=== PATIENT | female | born 1970 | race Caucasian/White ===

== ENCOUNTER → 2020-11-14 | Outpatient (CLI) | payer OTHER, BC, SELFPAY ==
[2020-11-14 10:18] VITALS: BMI 44.3
[2020-11-18 20:49] LABS: HPV APTIMA, High Risk Negative (Negative)
== END | disposition home or self-care (01) ==
LOC: LABSPEC 14:35
PROVIDERS: PCP Family Medicine; Referring Provider Nurse Practitioner Women's Health; Visit Provider Nurse Practitioner Women's Health
DX: Z12.4 Encounter for screening for malignant neoplasm of cervix (principal)
CPT/HCPCS: 87624; 88175; G0145

== ENCOUNTER → 2020-12-06 13:12 | Outpatient (CLI) | payer OTHER, BC, SELFPAY ==
[2020-11-14 10:18] VITALS: BMI 44.3
--- NOTE | 2020-12-06 13:15 | US_ITS ---
STUDY: ULTRASOUND OF THE FEMALE PELVIS - COMPLETE REASON FOR EXAM: Female, 50 years old. MENORRHAGIA LMP: 12/03/2020. TECHNIQUE: Transabdominal and Transvaginal TECHNICAL QUALITY: Adequate. COMPARISON: None. FINDINGS: The uterus is anteflexed and is in a midline position. The uterus is enlarged and measures 13.6 cm x 6.3 cm x 4.8 cm. There is a Nabothian cyst of the cervix. The endometrium measures 11 mm in thickness, and is hyperechoic. There is no demonstrated endometrial mass. Heterogeneous appearance of the myometrium although no distinct uterine fibroid is seen. I.U.D. - The patient does not have an I.U.D. The right ovary is visualized. The right ovary measures 3.1 cm x 2.9 cm x 2.0 cm. There is no right ovarian cyst or ovarian mass. There is no visualized right adnexal mass or complex lesion. There is normal arterial and normal venous vascularity. The left ovary is visualized. The left ovary measures 3.3 cm x 3 cm x 1.9 cm. A dominant follicle is seen within the left ovary measuring 1.1 cm x 1.5 cm x 0.8 cm. There is no visualized left adnexal mass or complex lesion. There is normal arterial and normal venous vascularity. There is no fluid in the cul-de-sac. The pre void volume of the bladder was 674 ml. US/Pelvic (Non ) IMPRESSION: Enlarged heterogeneous uterus. No focal fibroid is seen. Dominant follicle is seen in the left ovary. Electronically Signed: Mark Malcolm MD at 15:02 EST , Service support ,
--- NOTE | 2020-12-06 13:15 | BI_ITS ---
MAMMOGRAPHY - BILATERAL SCREENING REASON FOR EXAM: Female, 50 years old. Routine annual screening examination. PERTINENT HISTORY: Aunts with breast cancer. TECHNIQUE: Digital bilateral breast kirstin (3D mammographic acquisition) in the CC and MLO projections. 2-D mediolateral oblique (MLO) and craniocaudad (CC) views of both breasts were obtained. CAD: Full Field Digital Mammography with Computer Added Detection was performed. COMPARISON: Comparison is made with prior study dated 03/30/2017. FINDINGS: Breast Composition: There are scattered areas of fibroglandular density. There are no dominant masses or suspicious calcifications. Stable small benign appearing bilateral axillary lymph nodes. No other significant abnormalities are identified. There has been no significant change since the prior study. BI/SCRN MAMM (CAD)W/KIRSTIN BILAT IMPRESSION: Stable bilateral screening mammogram. Yearly follow-up mammogram recommended. (A) ASSESSMENT CATEGORY: BIRADS Category 2: Benign. A letter regarding these results will be sent to the patient by the facility within 30 days. Approximately 10% of breast cancers are not detected by mammography. A normal mammogram should not delay biopsy of a clinically suspicious abnormality. [id number] Electronically Signed: Mark Malcolm MD at 15:14 EST , Service support ,
--- NOTE | 2020-12-06 13:15 | US_ITS ---
STUDY: ULTRASOUND OF THE FEMALE PELVIS - COMPLETE REASON FOR EXAM: Female, 50 years old. MENORRHAGIA LMP: 12/03/2020. TECHNIQUE: Transabdominal and Transvaginal TECHNICAL QUALITY: Adequate. COMPARISON: None. FINDINGS: The uterus is anteflexed and is in a midline position. The uterus is enlarged and measures 13.6 cm x 6.3 cm x 4.8 cm. There is a Nabothian cyst of the cervix. The endometrium measures 11 mm in thickness, and is hyperechoic. There is no demonstrated endometrial mass. Heterogeneous appearance of the myometrium although no distinct uterine fibroid is seen. I.U.D. - The patient does not have an I.U.D. The right ovary is visualized. The right ovary measures 3.1 cm x 2.9 cm x 2.0 cm. There is no right ovarian cyst or ovarian mass. There is no visualized right adnexal mass or complex lesion. There is normal arterial and normal venous vascularity. The left ovary is visualized. The left ovary measures 3.3 cm x 3 cm x 1.9 cm. A dominant follicle is seen within the left ovary measuring 1.1 cm x 1.5 cm x 0.8 cm. There is no visualized left adnexal mass or complex lesion. There is normal arterial and normal venous vascularity. There is no fluid in the cul-de-sac. The pre void volume of the bladder was 674 ml. US/Transvaginal Non- IMPRESSION: Enlarged heterogeneous uterus. No focal fibroid is seen. Dominant follicle is seen in the left ovary. Electronically Signed: Mark Malcolm MD at 15:02 EST , Service support ,
== END ==
PROVIDERS: PCP Family Medicine; Referring Provider Nurse Practitioner Women's Health; Visit Provider Nurse Practitioner Women's Health
DX: Z12.31 Encounter for screening mammogram for malignant neoplasm of breast (principal); N92.0 Excessive and frequent menstruation with regular cycle
CPT/HCPCS: 76830; 76856; 77063; 77067

== ENCOUNTER → 2020-12-22 | Outpatient (CLI) | payer OTHER, BC, SELFPAY ==
--- NOTE | 2020-12-22 | EMB_PTH ---
PATIENT: [facility]ENET[facility]ANG [id number] AGE/SX: 50/F ROOM: RE12/22/[address]: SONAM Gold : 1970 BED: DIS: 12/22/2020 SPEC #: [id number] RECD: 12/22/20 13:54 STATUS: JESÚS AMBER #: [id number] LULU: 12/22/20 00:[address]: Shakila Peguero NP DEPT: SURGICAL PATHOLOGY RECD BY: Neil Carrion ENTERED: 12/22/20 13:54 SP TYPE: ENDOM BX/C HENRY DR: Dr. Wong Padilla MD Tissues: Endometrium, NOS Procedures: Surgery Specimen Level IV HEADER OPERATION: Endometrial biopsy PRE-OP DIAGNOSIS: Abnormal uterine bleeding TISSUE SUBMITTED: Endometrial biopsy MICROSCOPIC DIAGNOSIS Endometrial biopsy: Scant strips of benign endometrial epithelium. Fragments of benign ecto- and endocervical epithelium, blood and mucous. See comment. SJ:barbara 12/23/2020 COMMENT The specimen predominantly consists of blood and mucous and strips of benign ecto- and endocervical epithelium. Clinical correlation and appropriate follow up are necessary. MICROSCOPIC DESCRIPTION Slides are reviewed. GROSS DESCRIPTION Received is one container labeled with the patient's name and not further designated. The specimen consists of multiple fragments of lara hemorrhagic soft tissue that in aggregate measure 2 x 1.5 x 0.2 cm. The specimen is totally submitted in one cassette. / KACI:barbara 12/22/20 TC:4 CPT: 53154
[2020-12-22 11:18] VITALS: BMI 43.7
== END | disposition home or self-care (01) ==
LOC: LABSPEC 12:58
PROVIDERS: PCP Family Medicine; Visit Provider Nurse Practitioner Women's Health
DX: N93.9 Abnormal uterine and vaginal bleeding, unspecified (principal)
CPT/HCPCS: 88305

== ENCOUNTER → 2023-04-08 | Outpatient (CLI) | payer BC, SELFPAY ==
--- NOTE | 2023-04-08 09:42 | BI_ITS ---
MAMMOGRAPHY - BILATERAL SCREENING REASON FOR EXAM: Female, 52 years old. Routine annual screening examination. PERTINENT HISTORY: Aunt with breast cancer. Daughter with breast cancer. History of bilateral breast lifts in 2007. TECHNIQUE: Digital bilateral breast kirstin (3D mammographic acquisition) in the CC and MLO projections. 2-D mediolateral oblique (MLO) and craniocaudad (CC) views of both breasts were obtained. CAD: Full Field Digital Mammography with Computer Added Detection was performed. COMPARISON: Mammogram from 12/06/2020, 04/29/2017 FINDINGS: Breast Composition: There are scattered areas of fibroglandular density. There are no dominant masses or suspicious calcifications. No other significant abnormalities are identified. There has been no significant change since the prior study. BI/SCRN MAMM (CAD)W/KIRSTIN BILAT IMPRESSION: Stable bilateral screening mammogram. Yearly follow-up mammogram recommended. (A) ASSESSMENT CATEGORY: BIRADS Category 1: Negative. A letter regarding these results will be sent to the patient by the facility within 30 days. Approximately 10% of breast cancers are not detected by mammography. A normal mammogram should not delay biopsy of a clinically suspicious abnormality. Electronically Signed: Kody Nieto DO at 15:39 EDT ,
== END | disposition home or self-care (01) ==
LOC: OPBI 09:41
PROVIDERS: PCP Family Medicine; Referring Provider Family Medicine; Visit Provider Family Medicine
DX: Z12.31 Encounter for screening mammogram for malignant neoplasm of breast (principal); Z80.3 Family history of malignant neoplasm of breast
CPT/HCPCS: 77063; 77067

== ENCOUNTER → 2025-04-02 | Outpatient (CLI) | payer BC, SELFPAY ==
--- NOTE | 2025-04-02 13:04 | BI_ITS ---
EXAM: SCRN MAMM (CAD)W/KIRSTIN BILAT 04/02/2025 CLINICAL HISTORY: F, Age 54 y/o , SCREENING TECHNIQUE: Bilateral screening digital breast tomosynthesis with 2D and 3D images. Computer aided detection. COMPARISON: Prior exam(s) dated 04/08/2023, 12/06/2020. FINDINGS: TISSUE DENSITY: The breast tissue is composed of scattered area of fibroglandular density. Bilateral Breast Mammographic Findings: No significant masses, calcifications or other abnormalities are identified. BI/SCRN MAMM (CAD)W/KIRSTIN BILAT IMPRESSION: Right Breast: BIRADS 1 NEGATIVE. Left Breast: BIRADS 1 NEGATIVE. OVERALL FINAL ASSESSMENT: BIRADS 1 NEGATIVE. RECOMMENDATION: Routine annual follow-up in 1 Year A letter with findings and recommendations will be mailed to the patient. Reading Location: [id number]
--- OUTSIDE RECORDS SUMMARY | 2025-04-02 19:23 | XMS RPT_ITS | CCD ---
Author Organization [facility] Care Team Providers Care Planner Scheduler Name Role Phone KRISSY GARRETT Unavailable Unavailabl e SHEWBRIDGE, KRISSY K Unavailable Unavailabl e SHEWBRIDGE, KRISSY K Unavailable Unavailabl e SHEWBRIDGE, RKISSY K Unavailable Unavailabl e SHEWISIS, KRISSY K Unavailable Unavailabl e Wong Carpenter MD Primary Care Provider Wong Carpenter MD Primary Care Provider Dr. Wong Carepnter Primary Care Provider Dr. Wong Carpenter Referring Provider [phone] SONAM Tuttle Attending Provider CHRISTIANO DUENAS Attending Unavailable WONG CARPENTER Primary Care Unavailable WONG CARPENTER Primary Care Unavailable WONG CARPENTER Primary Care Unavailable WONG CARPENTER Attending Unavailable WONG CARPENTER Primary Care Unavailable JETT TUTTLE Attending Unavailable JETT TUTTLE Referring Unavailable WONG CARPENTER Primary Care Unavailable Jett Tuttle Attending Unavailable Wong Carpenter Referring Unavailable Wong Carpenter Primary Care Unavailable Jett Tuttle Attending Unavailable Wong Carpenter Referring Unavailable Wong Carpenter Primary Care Unavailable Kira Calvin NP Referring Unavailable Kira Calvin NP Attending Unavailable Wong Carpenter Primary Care Unavailable Allergies Allergy Classification Reported Allergen(s) Allergy Type Date of Onset Reaction(s) Facility (20 sources) metFORMIN; Translations: [METFORMIN] Drug Allergy 6 Nausea And Vomiting [facility] Repository Medications Current Medications Medication Drug Class(es) Dates Sig (Normalized) Sig (Original) atorvastatin 20 mg oral tablet (20 sources) HMG-CoA Reductase Inhibitor Start: 05-30-2023 End: 11-12-2024 take 1 tablet by mouth once daily in the morning atorvastatin (Lipitor) 20 MG tablet TAKE 1 TABLET BY MOUTH EVERY DAY IN THE MORNING 90 tablet 1 11/12/2024 Active Start: 11-14-2020 take 1 tablet by daquan th in the morning atorvastatin (Lipitor) 20 MG tablet Take 1 tablet (20 mg) by mouth in the morning. 90 tablet 1 09/10/2022 Active Dulaglutide (17 sources) GLP-1 Receptor Agonist Start: 03-20-2023 Dulaglu tide (Trulicity) 3 mg/0.5 mL pen injector Active 3 MG SC EVERY WEEK March 20, 2023 12:00am Start: 11-20-2022 End: 03-20-2023 Dulaglutide (Trulicity) 1.5 mg/0.5 mL pen injector Discontinued 1.5 MG SC EVERY WEEK January 15, 2023 1:53pm March 20, 2023 1:36pm Start: 09-06-2022 Trulicity 0.75 MG/0.5ML solution pen-injector Start: 01-26-2022 End: 12-17-2023 Trulicity 0.75 MG/0.5ML solu tion pen-injector 0.75 mg 1 (one) time per week. 0 09/06/2022 12/17/2023 Discontinued empagliflozin 25 mg oral tablet (20 sources) Sodium-Glucose Cotransporter 2 Inhibitor Start: 02-03-2024 End: 12-28-2024 take 1 tablet by mouth once daily Jardiance 25 MG Indications: Type 2 diabetes mellitus without complication, with long-term current use of insulin (CMS/HCC) ([facility]) Take 1 tablet (25 mg) by mouth daily. 90 tablet 1 12/28/2024 Active Start: 11-14-2020 End: 12-14-2022 take 25 mg by mouth in the morning Jardiance 25 MG Take 25 mg by mouth in the morning. 0 07/22/2022 Active glimepiride 4 mg oral tablet (20 sources) Sulfonylurea Start: 12-28-2024 take 1 tablet by mouth once daily at breakfast glimepiride (Amaryl) 4 MG tablet Indications: Type 2 diabetes mellitus without complication, with long-term current use of insulin (CMS/HCC) ([facility]) Take 1 tablet (4 mg) by mouth daily (with breakfast). 90 tablet 1 12/28/2024 Active Start: 09-20-2022 take 4 mg by mouth twice daily Glimepiride Active 4 MG PO TWICE A DAY 180 September 20, 2022 3:12pm Start: 09-05-2022 End: 12-28-2024 take 2 tablets by mouth once daily at breakfast glimepiride (Amaryl) 4 MG tablet Take 2 tablets (8 mg) by mouth daily (with breakfast). 180 tablet 1 07/13/2024 12/28/2024 Discontinued Start: 05-14-2016 End: 09-20-2022 take 4 mg by mouth once daily Glimepiride Discontinued 4 MG PO DAILY November 14, 2020 1:00am September 20, 2022 3:13pm 3 ml insulin degludec 100 unt/ml pen injector (20 sources) Insulin Analog Start: 05-06-2022 Tresiba FlexTo uch 100 UNIT/ML injection 16 Units Nightly. 05/06/2022 Active Start: 05-06-2022 inject 20 [IU] by glover bcutaneous injection once daily at bedtime Tresiba FlexTouch 100 UNIT/ML injection INJECT 20 UNITS SUBCUTANEOUSLY EVERY NIGHT AT BEDTIME 05/06/2022 Active Start: 01-26-2022 End: 03-20-2023 Insulin Degludec (Tresiba Flextouch U-100) 100 unit/mL (3 mL) insulin pen Active 20 UNIT SC AT BEDTIME March 20, 2023 1:37pm levothyroxine sodium 0.15 mg oral tablet (20 sources) l-Thyroxine Start: 02-19-2024 End: 11-25-2024 take 1 tablet by mouth once daily levothyroxine (Synthroid, Levoxyl) 150 MCG tablet TAKE 1 TABLET BY MOUTH EVERY DAY 90 tablet 1 11/25/2024 Active Start: 01-21-2024 take 1 tablet by daquan once daily levothyroxine (Synthroid, Levoxyl) 150 MCG tablet Take 1 tablet (150 mcg) by mouth daily. 0 01/21/2024 Active Start: 12-19-2023 End: 01-21-2024 take 1 tablet by mouth once daily levothyroxine (Synthroid, Levoxyl) 125 MCG tablet Take 1 tablet (125 mcg) by mouth daily. 30 tablet 0 12/19/2023 01/21/2024 Discontinued (Dose adjustment) Start: 07-10-2023 End: 09-16-2024 take 1 tablet by mouth once daily levothyroxine (Synthroid, Levoxyl) 112 MCG tablet Take 1 tablet (112 mcg) by mouth daily. 90 tablet 1 09/17/2023 09/16/2024 Active Start: 01-15-2023 End: 04-04-2023 take 1 tablet by mouth once daily before breakfast levothyroxine (Synthroid, Levoxyl) 150 MCG tablet Take 1 tablet (150 mcg) by mouth every morning (before breakfast). 90 tablet 1 04/05/2023 Active Start: 12-03-2022 take 1 tablet by daquan th once daily before breakfast levothyroxine (Synthroid, Levoxyl) 150 MCG tablet Take 1 tablet (150 mcg) by mouth every morning (before breakfast). 30 tablet 0 12/03/2022 Active Start: 11-14-2020 End: 09-20-2022 take 175 ug by mouth once daily Levothyroxine Disconti nued 175 MCG PO DAILY November 14, 2020 1:00am September 20, 2022 2:58pm Start: 09-17-2017 End: 12-03-2022 Levothyroxine Active 175 MCG PO September 20, 2022 1:00am Start: 05-14-2016 End: 11-14-2020 take 100 ug by mouth once daily Levothyroxine Disconti nued 100 MCG PO DAILY 90 May 21, 2016 12:00am November 14, 2020 11:21am Mounjaro 5 MG/0.5ML solution pen-injector (1 source) Start: 06-10-2024 inject 0.5 mL by subcutaneous injection every week Mounjaro 5 MG/0.5ML solution pen-injector INJECT 0.5 ML (5 MG) SUBCUTANEOUSLY WEEKLY 06/10/2024 Active Mounjaro 5 MG/0.5ML solution pen-injector (4 sources) Start: 06-10-2024 inject 0.5 mL by subcutaneous injection every week Mounjaro 5 MG/0.5ML solution pen-injector INJECT 0.5 ML (5 MG) SUBCUTANEOUSLY WEEKLY 06/10/2024 Active spironolactone 100 mg oral tablet (20 sources) Aldosterone Antagonist Start: 09-10-2022 End: 04-18-2023 take 1 tablet by mouth twice daily spironolactone (Aldactone) 100 MG tablet TAKE 1 TABLET BY MOUTH TWICE A DAY 180 tablet 04/18/2023 Active Start: 05-14-2016 End: 11-14-2020 take 100 mg by mouth twice daily Spironolactone Discontinued 100 MG PO TWICE A DAY May 14, 2016 12:00am November 14, 2020 11:21am valACYclovir 1000 mg oral tablet (20 sources) Herpesvirus Nucleoside Analog DNA Polymerase Inhibitor, Herpes Simplex Virus Nucleoside Analog DNA Polymerase Inhibitor, Herpes Zoster Virus Nucleoside Analog DNA Polymerase Inhibitor Start: 09-20-2022 Valacyclovir (Valtr ex) 1 gram tablet Active 1000 MG PO TWICE A DAY September 20, 2022 1:00am Start: 03-02-2020 take 2 tablets by mo ut in the morning valACYclovir (Valtrex) 1 g tablet Take 2 tablets by mouth in the morning and 2 tablets before bedtime. 03/02/2020 Active Completed/Discontinued Medications Medication Drug Class(es) Dates Sig (Normalized) Sig (Original) acetaminophen 325 mg / HYDROcodone bitartrate 5 mg oral tablet (1 source) Opioid Agonist Start: 05-21-2016 End: 11-14-2020 take 1 tablet by mouth every six hours as needed Hydrocodone-Acetam inophen Discontinued 1 TABLET PO EVERY 6 HOURS NEEDED May 21, 2016 12:00am November 14, 2020 11:21am acetaminophen 325 mg / oxyCODONE hydrochloride 5 mg oral tablet (1 source) Opioid Agonist Start: 01-06-2013 End: 11-30-2022 take 1 tablet by mouth every four hours as needed oxyCODONE-acetamin ophen (Percocet) 5-325 MG tablet Take 1 tablet by mouth every 4 hours as needed. 0 01/06/2013 11/30/2022 Discontinued (Med list cleanup) citalopram 20 mg oral tablet (2 sources) Serotonin Reuptake Inhibitor Start: 11-14-2020 End: 09-20-2022 take 1 tablet by mouth once daily Citalopram (Celexa) 20 mg tablet Discontinued 20 MG PO DAILY December 15, 2020 9:43am September 20, 2022 2:56pm metFORMIN hydrochloride 500 mg oral tablet (1 source) Biguanide End: 11-30-2022 take 1 tablet by mouth in the morning metFORMIN (Glucophage) 500 MG tablet Take 500 mg by mouth in the morning and 500 mg in the evening. 0 11/30/2022 Discontinued (Med list cleanup) SITagliptin 100 mg oral tablet (3 sources) Dipeptidyl Peptidase 4 Inhibitor Start: 05-14-2016 End: 11-30-2022 take 1 tablet by mouth in the morning SITagliptin (Januvia) 100 MG tablet Take 1 tablet by mouth in the morning. 0 04/11/2018 11/30/2022 Discontinued (Med list cleanup) 5 ml sodium chloride 9 mg/ml injection (6 sources) Start: 05-16-2023 End: 05-16-2023 sodium chloride 0.9 % infusion Start: 05-16-2023 End: 05-16-2023 sodium chloride 0.9% (NS) fl ush 10 mL terbinafine 250 mg oral tablet (1 source) Allylamine Antifungal Start: 05-28-2022 End: 11-30-2022 take 1 tablet by mouth once daily in the morning terbinafine (LamISIL) 250 MG tablet Take 250 mg by mouth every morning. 0 05/28/2022 11/30/2022 Discontinued (Med list cleanup) Trulicity 4.5 MG/0.5ML solution pen-injector (6 sources) Start: 09-17-2023 End: 07-13-2024 inject 4.5 mg by subcutaneous injection every week Trulicity 4.5 MG/0.5ML solution pen-injector 4.5 MG (0.5 ML) SUBCUTANEOUSLY EVERY WEEK 09/17/2023 07/13/2024 Discontinued (Alternate therapy) Start: 09-17-2023 inject 4.5 mg by sub cutaneous injection every week Trulicity 4.5 MG/0.5ML solution pen-injector 4.5 MG (0.5 ML) SUBCUTANEOUSLY EVERY WEEK 09/17/2023 Active Start: 09-17-2023 inject 4.5 mg by sub cutaneous injection every week Trulicity 4.5 MG/0.5ML solution pen-injector 4.5 MG (0.5 ML) SUBCUTANEOUSLY EVERY WEEK 0 09/17/2023 Active Problems Active Problems Problem Classification Problem Date Documented Date Episodic/Chronic Cancer of cervix (1 source) Atypical squamous cells of undetermined significance on cervical Papanicolaou smear; Translations: [Atypical squamous cells of undetermined significance on cytologic smear of cervix (ASC-US)] 11-21-2020 Episodic Complications of surgical procedures or medical care (20 sources) Postprocedural hypothyroidism; Translations: [Postoperative hypothyroidism] Onset: 06-03-2017 Resolved: 12-28-2024 08-06-2022 Chronic Diabetes mellitus with complications (20 sources) Type 2 diabetes mellitus with hyperglycemia; Translations: [Type II diabetes mellitus uncontrolled] Onset: 09-11-2017 Resolved: 12-17-2023 08-06-2022 Chronic Diabetes mellitus without complication (20 sources) Diabetes mellitus; Translations: [Type 2 diabetes mellitus without complications] Onset: 12-17-2023 06-14-2022 Chronic Disorders of lipid metabolism (20 sources) Hyperlipidemia; Translations: [Hyperlipidemia, unspecified] Onset: 06-16-2018 08-06-2022 Chronic Menstrual disorders (1 source) Menorrhagia; Translations: [Excessive and frequent menstruation with regular cycle] 11-14-2020 Chronic Other aftercare (2 sources) jail (current) use of insulin; Translations: [jail (current) use of insulin (HCC)] Onset: 12-17-2023 Episodic Other female genital disorders (1 source) Premenstrual tension syndrome; Translations: [Premenstrual tension syndrome] 11-14-2020 Chronic Other nutritional; endocrine; and metabolic disorders (20 sources) Morbid obesity; Translations: [Morbid (severe) obesity due to excess calories] Onset: 06-03-2017 08-06-2022 Chronic Other nutritional; endocrine; and metabolic disorders (1 source) Obesity; Translations: [Obesity, unspecified] 06-14-2022 Chronic Other nutritional; endocrine; and metabolic disorders (2 sources) Obesity, unspecified; Translations: [Obesity, unspecified] Onset: 12-17-2024 03-20-2023 Chronic Other screening for suspected conditions (not mental disorders or infectious disease) (10 sources) At risk of breast cancer; Translations: [Encounter for other screening for malignant neoplasm of breast] Onset: 12-28-2024 05-16-2023 Episodic Thyroid disorders (11 sources) 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; Translations: [Other specified hypothyroidism] Onset: 06-26-2024 01-30-2022 Chronic Unclassified (2 sources) Blood Work; Translations: [Blood Work] Onset: 01-16-2024 Past or Other Problems Problem Classification Problem Date Documented Da te Episodic/Chronic Mycoses (20 sources) Onychomycosis; Translations: [Tinea unguium] Onset: 05-28-2022 08-06-2022 Episodic Other female genital disorders (20 sources) Cervical atypism; Translations: [Dysplasia of cervix uteri, unspecified] Onset: 03-30-2021 Resolved: 11-30-2022 11-30-2022 Episodic Other skin disorders (20 sources) Acne vulgaris; Translations: [Acne vulgaris] Onset: 06-03-2017 08-06-2022 Episodic Residual codes; unclassified (20 sources) Family history of malignant neoplasm of uterus; Translations: [Family history of malignant neoplasm of other genital organs] Onset: 03-30-2021 08-06-2022 Episodic Residual codes; unclassified (20 sources) Tobacco use and exposure - finding; Translations: [Tobacco use] Onset: 06-03-2017 08-06-2022 Episodic Results Test Name Value Interpretation Reference Range Facility Office Visiton 12-28-2024 Follow-up visit [id number] Renetta Herrera 1970 F Date Provider Department Center 12/28/2024 [id number] ARMANDO [facility] Family History Problem Relation Age of Onset No Known Problems Father Cancer Maternal Grandfather Comments: lung No Known Problems Paternal Grandmother Heart disease Maternal Grandmother No Known Problems Sister Cancer Mother Comments: uterine No Known Problems Paternal Grandfather Family Status - Relation Status Age at Father Alive Maternal Grandfather Paternal Grandmother Maternal Grandmother Sister Alive Mother Paternal Grandfather Level of Service:58940 CO PERIODIC PREVENTIVE MED EST PATIENT 40-64YRS Reason for Visit and Comments: Annual Exam [83] Health Maintenance [872] - Hepatitis B Vaccines-declined Zoster Vaccines-declined Diabetes: Retinopathy Screening-DUE been over a year Pneumococcal Vaccine-declined Cervical Cancer Screening-DUE w/ sanam Mammogram-sanam orders Diabetes: Dental Exam-6 months ago Influenza Vaccine-declined COVID-19 Vaccine-declined Depression Screening-NEEDS COMPLETED Diabetes: Foot Exam-PENDED Normal [facility] Progress Noteon 12-28-2024 Progress Note Controlled, continue atorvastatin 20 mg daily Normal [facility] Progress Note Controlled. Last hemoglobin A1c was 6.9 at endocrinology, continue Mounjaro 5 mg weekly, glimepiride 4 mg daily, Jardiance 25 mg daily, Tresiba 16 units nightly Normal [facility] Progress Note Check TSH, continue levothyroxine 150 mcg daily. Normal [facility] Progress Note Health Maintenance D ue Topic Hepatitis B Vaccines-declined Zoster Vaccines-declined Diabetes: Retinopathy Screening-DUE been over a year Pneumococcal Vaccine-declined Cervical Cancer Screening-DUE w/ marcanthony Mammogram-sanam orders Diabetes: Dental Exam-6 months ago Influenza Vaccine-declined COVID-19 Vaccine-declined Depression Screening-NEEDS COMPLETED Diabetes: Foot Exam-PENDED Normal [facility] Progress Note 12/28/2024 Renetta Herrera (: 1970) is a 54 y.o. female , Established patient, here for evaluation of the following chief complaint(s): Annual Exam and Health Maintenance (Hepatitis B Vaccines-declined/Zoster Vaccines-declined/Diabet es: Retinopathy Screening-DUE been over a year/Pneumococcal Vaccine-declined/Cervica l Cancer Screening-DUE w/ marcanthony/Mammogram-ma mary jo orders/Diabetes: Dental Exam-6 months ago /Influenza Vaccine-declined/COVID-1 9 Vaccine-declined/Depress ion Screening-NEEDS COMPLETED/Diabetes: Foot Exam-PENDED/) ASSESSMENT/PLAN: 1. Type 2 diabetes mellitus without complication, with long-term current use of insulin ([facility]) ([facility]) Assessment & Plan: Controlled. Last hemoglobin A1c was 6.9 at endocrinology, continue Mounjaro 5 mg weekly, glimepiride 4 mg daily, Jardiance 25 mg daily, Tresiba 16 units nightly Orders: - Jardiance 25 MG; Take 1 tablet (25 mg) by mouth daily., Starting Sat12/28/2024, Normal - glimepiride (Amaryl) 4 MG tablet; Take 1 tablet (4 mg) by mouth daily (with breakfast)., Starting Sat12/28/2024, Normal 2. 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 Orders: - TSH 3. Pure hypercholesterolemia Assessment & Plan: Controlled, continue atorvastatin 20 mg daily 4. Screening for deficiency anemia 5. Encounter for screening mammogram for malignant neoplasm of breast Follow up in about 6 months (around 06/30/2025). SUBJECTIVE/OBJECTIVE: REGINALD - Renetta Herrera (: 1970) is a 54 y.o. female , Established patient, here for the evaluation of the following chief complaint(s): Annual Exam and Health Maintenance (Hepatitis B Vaccines-declined/Zoster Vaccines-declined/Diabet es: Retinopathy Screening-DUE been over a year/Pneumococcal Vaccine-declined/Cervica l Cancer Screening-DUE w/ marcanthony/Mammogram-ma rcanthony orders/Diabetes: Dental Exam-6 months ago /Influenza Vaccine-declined/COVID-1 9 Vaccine-declined/Depress ion Screening-NEEDS COMPLETED/Diabetes: Foot Exam-PENDED/) Patient presents for her annual exam. She sees endocrinology for her diabetes and for hypothyroidism. We do prescribe many of her diabetic medications and the levothyroxine. She last had her blood work checked in June 2024 and will have it checked again in May 2025. Her labs are checked by the manpower development specialist manager. We will check her TSH today as it was slightly low when endocrine checked it in June 2024. Patient states that she would prefer to have it on the lower end of normal. Checks her sugars twice daily and the manpower development specialist manager checked [id number]-[id number] hemoglobin A1c last month and it was 6.9. She is due for her mammogram and her Pap smear-she sees IMPORT EXPORT COORDINATOR that. Denies any acute concerns or complaints today. Prior to Admission medications Medication Sig Start Date End Date Taking? Authorizing Provider atorvastatin (Lipitor) 20 MG tablet TAKE 1 TABLET BY MOUTH EVERY DAY IN THE MORNING 11/12/24 Yes Christiano Duenas, AUTOPSY PATHOLOGIST - ENGRAVER MACHINE B-D UF III MINI PEN NEEDLES 31G X 5 MM misc USE DIRECTED EVERY DAY 12/17/24 Yes Historical Provider, BD Pen Needle Gloria 2nd Gen 32G X 4 MM misc USE DIRECTED ONCE DAILY 05/01/22 Yes Historical Provider, glimepiride (Amaryl) 4 MG tablet Take 2 tablets (8 mg) by mouth daily (with breakfast). 07/13/24 Yes Wong Carpenter MD glucose blood (Accu-Chek Lauren Plus) test strip USE TO TEST BLOODSUGAR TWICE A DAY 06/13/20 Yes Historical Provider, Jardiance 25 MG TAKE 1 TABLET BY MOUTH EVERY DAY 05/27/24 Yes Wong Carpenter MD levothyroxine (Synthroid, Levoxyl) 150 MCG tablet TAKE 1 TABLET BY MOUTH EVERY DAY 11/25/24 Yes Wong Carpenter MD Mounjaro 5 MG/0.5ML solution pen-injector INJECT 0.5 ML (5 MG) SUBCUTANEOUSLY WEEKLY 06/10/24 Yes Historical Provider, spironolactone (Aldactone) 100 MG tablet TAKE 1 TABLET BY MOUTH TWICE A DAY 04/18/23 Yes Wong Carpenter MD Tresiba FlexTouch 100 UNIT/ML injection 16 Units Nightly. 05/06/22 Yes Historical Provider, valACYclovir (Valtrex) 1 g tablet Take 2 tablets by mouth in the morning and 2 tablets before bedtime. 03/02/20 Yes Historical Provider, Review of Systems Constitutional: Negative. HENT: Negative. Eyes: Negative for visual disturbance. Last eye exam - 1 year Respiratory: Negative. Cardiovascular: Negative. Gastrointestinal: Negative. Genitourinary: Negative. Musculoskeletal: Negative. Neurological: Negative. Psychiatric/Behavioral: Negative. Vitals: 12/28/24 1041 BP: 107/73 Pulse: 75 Resp: 18 Temp: 36.1 ?C (96.9 ?F) TempSrc: Infrared SpO2: 95% Weight: 256 lb 12.8 oz (116 kg) Height: 5' 5 (1.651 m) Physical Exam Constitutional: General: She is not in acute distress. Appearance: Normal appearance. She is normal weight. She is not ill-appearing. HENT: Head: Normocephalic and atraumatic. Right Ear: Tympanic membrane, ear canal an (more content not included)... Normal [facility] Endocrinology Visit Reporton 12-17-2024 Endocrinology Visit Report [facility] [address] [place] [address] OFFICE VISIT Date of Service: 12/17/24 MR#: [id number] Acct: [id number] Name: RENETTA HERRERA Rep #: [id number] : 1970 Provider: SONAM sauer Age/Sex: 54/F Location: [facility] Status: Signed Intake Vital Signs 06/10/24 13:08 12/17/24 13:08 Height 5 ft 5 in 5 ft 5 in Weight: 258 lb 261 lb BMI 42.9 43.4 BP 121/82 H 123/80 H Blood Pressure Location Lt brachial Rt brachial Position Sitting Sitting Pulse 88 76 Pulse Source Monitor Monitor Pulse Oximetry (%) 97 98 Oxygen Delivery Method room air room air Intake Visit Reasons: 6 M FU, RS 11/09 Chief Complaint: f/u diabetes Is patient in pain?: No Allergies metformin Adverse Reaction (Intermediate, Verified 12/17/24 13:12) Diarrhea Medications ???Medication ???Instructions ???Recorded ???Confirmed ???Type valacyclovir 1 gram tablet 1,000 mg PO BID PRN 09/20/2212/17 History (Valtrex) spironolactone 100 mg tablet 100 mg PO DAILY PRN 06/10/2412/17 History Tresiba FlexTouch U-100 100 20 unit (0.2 mL) subcut QHS #18 mL 12/17/24 12/17/24 Rx unit/mL (3 mL) subcutaneous pen (insulin degludec) atorvastatin 20 mg tablet 20 mg PO DAILY #90 tabs 12/17/24 0 12/17/24 Rx empagliflozin 25 mg tablet 25 mg PO DAILY #90 tabs 12/17/24 0 12/17/24 Rx (Jardiance) glimepiride 4 mg tablet 4 mg PO QDAY #90 tabs 12/17/24 Rx levothyroxine 150 mcg tablet 150 mcg PO QDAY #90 tabs 12/17/24 12/17/24 Rx pen needle, diabetic 32 gauge x #100 ea 12/17/24 12/17/24 Rx 5/32 (BD Ultra-Fine Gloria Pen Needle) tirzepatide 5 mg/0.5 mL 5 mg (0.5 mL) subcut QWEEK #6 mL 0 12/17/24 12/17/24 Rx subcutaneous pen injector (Mounjaro) 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 Mixed hyperlipidemia Diabetes Hypothyroidism Type 2 diabetes mellitus Surgical History History of thyroidectomy, total History of tubal ligation History of tonsillectomy History of breast lift H/O abdominoplasty S/P Family History Mother Cervical cancer Unknown Breast cancer Social History household members: spouse number of children: 2 current occupational status: employed current occupation: [employer] history of recent travel: No Smoking Status: Current every day smoker alcohol intake: never substance use type: does not use diet: low carbohydrate caffeine: Yes what type of physical activity do you participate in: walking frequency: 5-6 times per week seatbelt use: always do you feel safe at home: Yes additional social history: - Donald [facility] HPI Chief Complaint: f/u diabetes Details: RENETTA HERRERA, is a 54 F who presents to the office today for evaluation and management of diabetes. A1C today is 6.9%, increased from 06/10/24 at 6.3%. She has gained 3 lbs since that time. She is having a lot of personal stressors. She admits that she has been off track with her diet. Currently taking Tresiba 15 u once daily, Jardiance 25 mg once daily, Mounjaro 5 mg qweek- tolerating well, and glimepiride 4 mg once daily. She brings blood sugar log for review- fasting blood sugars range from 73-135; however, typical fastings are <100. She denies any significant episode of hypoglycemia that have required assistance from others. She is hypothyroid and is currently taking levothyroxine 150 mcg once daily. BP is stable. She takes a daily statin. Labs are up to date and unremarkable. Denies any acute concerns. ROS Const Constitutional: Positive for weight change; No fatigue ENT ENT: No dizziness/vertigo Cardio Cardiology: No chest pain at rest, chest pain with exertion, shortness of breath or palpitations Psych Psychiatric: Positive for irritability and Positive for other (personal stressors) Skin Skin: No wounds Endo Endocrine: Positive for weight change; No fatigue Exam Const General: cooperative, healthy appearing, comfortable and no acute distress Nutritional Appearance: obese Orientation: alert, awake and oriented x3 HENMT Head: normal to inspection Ears: hearing grossly normal bilaterally Nose: external nose normal Face and sinus: normal facial exam Eyes General: appearance normal, both eyes and all related structures Alignment and Position: alignment normal Sclera: sclerae normal Neck Neck: normal visual inspection Chest Chest palpation inspection: normal inspection of the chest Resp Effort Inspection: normal respiratory (more content not included)... [facility] 36on 11-25-2024 36 Prescription Request : Last medication check: 07/13/24 Last physical exam: 12/17/23 Next scheduled appointment: 12/28/24 Last date of refill on this medication 08/17/24 90 and 1 refill [place] [address]on 11-12-2024 36 Reviewed chart. Refi ll appropriate. RX sent. [place] [address] Prescription Request : Last medication check: 07/13/24 Last physical exam: 12/17/23 Next scheduled appointment: 12/28/24 Last date of refill on this medication 05/18/24 90 and 1 refill [place] [address] 08-18-2024 36 Message released to patient as written. yes Patient's further questions if applicable: none Were all questions from office addressed or relayed to the patient from encounter: Yes- patient wanted to keep her appt on 12/28. I moved patient to [facility] 12/28 at 1020. Please advise [facility] 36 Left a message to re turn call. [address] 08-17-2024 36 Reviewed chart. Refi ll appropriate. RX sent. [place] [address] Prescription Request : Last medication check: 07/13/24 Last physical exam: 12/17/23 Next scheduled appointment: 12/28/24 Last date of refill on this medication 02/19/24 90 and 1 refill [place] [address] 08-11-2024 36 Left a message to re turn call. Patient is scheduled with Dr. Carpenter on 12/28/2024 and we are going to have to reschedule that appointment as Dr. Carpenter will be out of the office on Mondays and Fridays at the beginning of the year. Normal [facility] Office Visiton 07-13-2024 Follow-up visit [id number] Renetta Herrera 1970 F Date Provider Department Center 07/13/2024 [id number] CARPENTERROSALIE [facility] Family History Problem Relation Age of Onset No Known Problems Father Cancer Maternal Grandfather Comments: lung No Known Problems Paternal Grandmother Heart disease Maternal Grandmother No Known Problems Sister Cancer Mother Comments: uterine No Known Problems Paternal Grandfather Family Status - Relation Status Age at Father Alive Maternal Grandfather Paternal Grandmother Maternal Grandmother Sister Alive Mother Paternal Grandfather Level of Service:47823 CO OFFICE/OUTPATIENT ESTABLISHED MOD MDM 30 MIN Reason for Visit and Comments: Hypothyroidism [143] Hyperlipidemia [182] Diabetes [34] Medication Check [[id number]] - 6 month Health Maintenance [872] - Hep b vaccine- refuse Shingles vaccine- refuse Eye exam- not done Pcv 20 vaccine- refuse Pap/shashank- pt will sched Dental exam- [facility] in [facility] 05/2024 4 covid vaccines- not done Flu vaccine- refuse Normal [facility] Progress Noteon 07-13-2024 Progress Note Controlled, continue atorvastatin [address] [facility] Progress Note Controlled, last A1c was 6.3 at endocrinology continue Mounjaro 5 mg, Tresiba 16 units nightly and glimepiride 8 mg daily and Jardiance 25 mg daily Normal [facility] Progress Note Stable, continue levothyroxine 150 mcg Normal [facility] Progress Note 07/13/2024 Renetta Herrera (: 1970) is a 53 y.o. female , Established patient, here for evaluation of the following chief complaint(s): Hypothyroidism, Hyperlipidemia, Diabetes, Medication Check (6 month), and Health Maintenance (Hep b vaccine- refuse/Shingles vaccine- refuse/Eye exam- not done/Pcv 20 vaccine- refuse/Pap/shashank- pt will sched/Dental exam- [facility] in [place] 05/2024/4 covid vaccines- not done/Flu vaccine- refuse) ASSESSMENT/PLAN: 1. Type 2 diabetes mellitus without complication, with long-term current use of insulin ([facility] ([facility]) Assessment & Plan: Controlled, last A1c was 6.3 at endocrinology continue Mounjaro 5 mg, Tresiba 16 units nightly and glimepiride 8 mg daily and Jardiance 25 mg daily 2. Hypothyroidism, postop Assessment & Plan: Stable, continue levothyroxine 150 mcg 3. Pure hypercholesterolemia Assessment & Plan: Controlled, continue atorvastatin 20 mg daily Follow up in about 6 months (around 01/10/2025). SUBJECTIVE/OBJECTIVE: REGINALD -Lisa comes in today for a 6-month follow-up on her diabetes for which she also sees endocrinology Dr. Soto in [place] and she said she just recently had a A1c that was 6.3 and it is in her chart in the endocrinology note. She also is here for follow-up on her hypothyroidism which is stable she does see endocrinology for that also and her hyperlipidemia. Review of Systems Constitutional: Negative for chills and fever. Respiratory: Negative for shortness of breath. Cardiovascular: Negative for chest pain and palpitations. Gastrointestinal: Negative for abdominal pain, blood in stool, constipation and diarrhea. Genitourinary: Negative for dyspareunia, dysuria, frequency, hematuria and urgency. Neurological: Negative for weakness and numbness. Psychiatric/Behavioral: Negative for dysphoric mood. The patient is not nervous/anxious. Vitals: 07/13/24 1050 BP: 112/75 Pulse: 80 SpO2: 98% Weight: 258 lb 3.2 oz (117 kg) Height: 5' 5 (1.651 m) Physical Exam Vitals and nursing note reviewed. Constitutional: General: She is not in acute distress. Appearance: Normal appearance. HENT: Head: Normocephalic. Right Ear: Tympanic membrane, ear canal and external ear normal. Left Ear: Tympanic membrane, ear canal and external ear normal. Mouth/Throat: Mouth: Mucous membranes are moist. Pharynx: Oropharynx is clear. Eyes: Extraocular Movements: Extraocular movements intact. Pupils: Pupils are equal, round, and reactive to light. Neck: Thyroid: No thyromegaly. Vascular: No carotid bruit. Cardiovascular: Rate and Rhythm: Normal rate and regular rhythm. Heart sounds: Normal heart sounds. No murmur heard. Pulmonary: Effort: Pulmonary effort is normal. Breath sounds: Normal breath sounds. Abdominal: General: Bowel sounds are normal. Palpations: Abdomen is soft. Musculoskeletal: General: Normal range of motion. Cervical back: Normal range of motion. Lymphadenopathy: Cervical: No cervical adenopathy. Skin: General: Skin is warm and dry. Neurological: General: No focal deficit present. Mental Status: She is alert and oriented to person, place, and time. Psychiatric: Mood and Affect: Mood normal. An electronic signature was used to authenticate this note. Wong Carpenter MD 07/13/2024 11:18 AM Normal [facility] Progress Note Patient verified by last name and date of . Normal [facility] 36on 07-10-2024 36 lm to pre-visit plan for appointment with Dr Carpenter on 07/13/24 11am. Please ask patient to arrive 15 minutes early with Photo ID, insurance card Fasting: no Normal [facility] 25-hydroxyvitamin D3 [Mass/V ol]on 06-26-2024 Interpretation and review of laboratory results Normal [facility] Therapy is based on measurement of Total 25-OHD with the following classification levels: Less than 20 ng/mL: Indicative of Vit D deficiency 20-30 ng/mL: Suggests Vit D insufficiency Optimal: Greater than or equal to 30 ng/mL Test performed by [employer] Immunoassay, measuring Total Vitamin D, not individual fractions. [facility] COMPREHENSIVE METABOLIC PANE Alexander 06-26-2024 Albumin [Mass/Vol] 4.2 g/dL Normal 3.5-5.0 [facility] Comment on above: Performed By: #### L AB17, [id number], LAB18 ####Salesperson [employer]ing Machines: JUDSON HERNANDEZ ([id number])[facility] SinaAN (SWRLAB)[address] [place] [address] ALP [Catalytic activity/Vol] 66 U/L Normal 38-126 [facility] Comment on above: Performed By: #### L AB17, [id number], LAB18 ####Salesperson [employer] Mach[employer]: JUDSON HERNANDEZ ([id number])[facility] RITTMAN (SWRLAB)[address] [place] [address] [place] ALT [Catalytic activity/Vol] 21 U/L Normal 0-34 [facility] Comment on above: Performed By: #### L AB17, [id number], LAB18 ####Salesperson Sewing Mach[employer]: JUDSON HERNANDEZ ([phone])[employer]ITTMAN (SWRLAB)[address] Anion gap [Moles/Vol] 7 mmol/L Normal 3-13 [facility] Comment on above: Performed By: #### L AB17, [id number], LAB18 ####Salesperson Sewing Machines: JUDSON HERNANDEZ ([id number])[facility] VERITO RITTMAN (SWRLAB)[address] AST [Catalytic activity/Vol] 23 U/L Normal 15-46 [facility] Comment on above: Performed By: #### L AB17, [id number], LAB18 ####Salesperson [employer] Mach[employer]: JUDSON HERNANDEZ ([phone])[facility] VERITO RITTMAN (SWRLAB)[address] [place] [address] [place] Bilirubin [Mass/Vol] 0.5 mg/dL Normal 0.2-1.3 [facility] Comment on above: Performed By: #### L AB17, [id number], LAB18 ####Salesperson Sew[employer] Machines: JUDSON HERNANDEZ ([phone])[facility]OD[facility]namarie PEREZVERITO RITTMAN (SWRLAB)[address] [place] [address] [place] Calcium [Mass/Vol] 9.2 mg/dL Normal 8.4-10.4 [facility] Comment on above: Performed By: #### L AB17, [id number], LAB18 ####Salesperson [employer] Mach[employer]: JUDSON HERNANDEZ ([id number])[facility] VERITO RITTMAN (SWRLAB)[address] [place] [address] [place] Chloride [Moles/Vol] 106 mmol/L Normal 98-107 [facility] Comment on above: Performed By: #### L AB17, [id number], LAB18 ####Salesperson Sewing Mach[employer]: JUDSON HERNANDEZ ([id number])[facility] VERITO [employer]ITTMAN (SWRLAB)[address] [place] [address] [place] CO2 [Moles/Vol] 26 mmol/L Normal 22-30 [facility] Comment on above: Performed By: #### L AB17, [id number], LAB18 ####Salesperson Sewing Machines: JUDSON HERNANDEZ ([phone])[facility]ODAnnamarie SELLERS RITTMAN (SWRLAB)[address] [place] [address] [place] Creatinine [Mass/Vol] 0.83 mg/dL Normal 0.52-1.04 [facility] Comment on above: Performed By: #### L AB17, [id number], LAB18 ####Salesperson Sewing Machines: JUDSON HERNANDEZ ([id number])[facility]OD[facility] SELLERS RITTMAN (SWRLAB)[address] [place] [address] [place] GLOMERULAR FILTRATION RATE ML/MIN/1.73 SQ M.PREDICTED 84.4 mL/min/1.73m*2 Normal >60.0 [facility] Comment on above: Result Comment: Calc ulation based on the Chronic Kidney Disease Epidemiology Collaboration (CKD-EPI) equation refit without adjustment for race Performed By: #### Chi AB17, [id number], LAB18 ####Salesperson Sewing Machines: JUDSON HERNANDEZ ([phone])[facility]namarie SELLERS [employer] (SWRLAB)[address] [place] [address] [place] Glucose [Mass/Vol] 97 mg/dL Normal 70-100 [facility] Comment on above: Performed By: #### L AB17, [id number], LAB18 ####Salesperson Sewing Machines: JUDSON HERNANDEZ ([phone])[facility] [employer]ERS [employer] (SWRLAB)[address] [place] [address] [place] Potassium [Moles/Vol] 4.1 mmol/L Normal 3.5-5.1 [facility] Comment on above: Performed By: #### L AB17, [id number], LAB18 ####Salesperson [employer] Mach[employer]: JUDSON HERNANDEZ ([id number])[facility] SELLERS [employer] (SWRLAB)[address] [place] [address] [place] Protein [Mass/Vol] 7.1 g/dL Normal 6.3-8.2 [facility] Comment on above: Performed By: #### L AB17, [id number], LAB18 ####Salesperson [employer] Mach[employer]: JUDSON HERNANDEZ ([id number])[facility]OD[facility]namarie LETMAN (SWRLAB)[address] Sodium [Moles/Vol] 139 mmol/L Normal 135-145 [facility] Comment on above: Performed By: #### L AB17, [id number], LAB18 ####Salesperson Sewing Machines: JUDSON HERNANDEZ ([phone])[facility]ENT[facility]ER[facility] RITTMAN (SWRLAB)[address] Urea nitrogen [Mass/Vol] 14 mg/dL Normal 7-17 [facility] Comment on above: Performed By: #### L AB17, [id number], LAB18 ####Salesperson Sewing Machines: JUDSON HERNANDEZ ([id number])[facility] CENT[facility]ERITO REYTMAN (SWRLAB)[address] [place] [address] Comprehensive metabolic 1998 panelon 06-26-2024 Albumin [Mass/Vol] 4.2 g/dL 3.5 - 5.0 g/dL [facility] ALP [Catalytic activity/Vol] 66 U/L 38 - 126 U/L [facility] ALT [Catalytic activity/Vol] 21 U/L 0 - 34 U/L [facility] Anion gap [Moles/Vol] 7 mmol/L 3 - 13 mmol/L [facility] AST [Catalytic activity/Vol] 23 U/L 15 - 46 U/L [facility] Bilirubin [Mass/Vol] 0.5 mg/dL 0.2 - 1 .3 mg/dL [facility] Calcium [Mass/Vol] 9.2 mg/dL 8.4 - 10. 4 mg/dL [facility] Chloride [Moles/Vol] 106 mmol/L 98 - 10 7 mmol/L [facility] CO2 [Moles/Vol] 26 mmol/L 22 - 30 mmol/L [facility] Creatinine [Mass/Vol] 0.83 mg/dL 0.52 - 1.04 mg/dL [facility] GFR/1.73 sq M.predicted (S/P/Bld) [Vol rate/Area] 84.4 mL/min - PINF [facility] Comment on above: Calculation based on the Chronic Kidney Disease Epidemiology Collaboration (CKD-EPI) equation refit without adjustment for race Glucose [Mass/Vol] 97 mg/dL 70 - 100 mg/dL [facility] Interpretation and review of laboratory results Normal [facility] Potassium [Moles/Vol] 4.1 mmol/L 3.5 - 5.1 mmol/L [facility] Protein [Mass/Vol] 7.1 g/dL 6.3 - 8.2 g/dL [facility] Sodium [Moles/Vol] 139 mmol/L 135 - 145 mmol/L [facility] Urea nitrogen [Mass/Vol] 14 mg/dL 7 - 17 mg/dL [facility] FREE T4on 06-26-2024 Free T4 [Mass/Vol] 1.95 ng/dL Normal 0.78-2.19 [facility] Comment on above: Performed By: #### L [id number] ####Salesperson Sewing Machines: JUDSON HERNANDEZ ([phone])[facility] VERITO SinaTMAN (SWRLAB)[address] [place] [address] [place] Free T4 [Mass/Vol]on 024 Free T4 Dialysis [Mass/Vol] 1.95 ng/dL 0.78 - 2.19 ng/dL [facility] Interpretation and review of laboratory results Normal [facility] LIPID PANELon 06-26-2024 Cholesterol [Mass/Vol] 148 mg/dL Normal <200 [facility] Comment on above: Performed By: #### L AB17, [id number], LAB18 ####Salesperson [employer]: JUDSON HERNANDEZ ([id number])[facility] VERITO RITTMAN (SWRLAB)[address] [place] [address] [place] Cholesterol in HDL [Mass/Vol] 61 mg/dL High 40-60 [facility] Comment on above: Performed By: #### L AB17, [id number], LAB18 ####Salesperson [employer]: JUDSON HERNANDEZ ([phone])[facility] VERITO RITTMAN (SWRLAB)[address] [place] [address] [place] Cholesterol.total/Ch olesterol in HDL [Mass ratio] 2 {ratio} Normal [facility] Comment on above: Result Comment: Ref Range: < 3 Low Risk for CHD 3-6 Mod Risk for CHD > 6 High Risk for CHD Performed By: #### L AB17, [id number], LAB18 ####Salesperson Sew[employer] Mach[employer]: JUDSON HERNANDEZ ([phone])[facility] VERITO RITTMAN (SWRLAB)[address] [place] [address] LOW DENSITY LIPOPROTEIN 70 mg/dL Normal 0-<100 [facility] Comment on above: Performed By: #### L AB17, AMH015, LAB18 ####Salesperson [employer] Mach[employer]: JUDSON HERNANDEZ ([phone])[facility] VERITO RITTMAN (SWRLAB)[address] [place] [address] Triglyceride [Mass/Vol] 83 mg/dL Normal <150 [facility] Comment on above: Performed By: #### L AB17, [id number], LAB18 ####Salesperson Sew[employer] Mach[employer]: JUDSON HERNANDEZ ([id number])[facility] VERITO RITTMAN (SWRLAB)[address] [place] [address] Lipid 1996 panelon Cholesterol [Mass/Vol] 148 mg/dL NINF - 200 mg/dL [facility] [employer] Cholesterol in HDL [Mass/Vol] 61 mg/dL High 40 - 60 mg/dL [facility] [employer] Cholesterol in LDL [Mass/Vol] 70 mg/dL 0 - <100 [facility] Cholesterol.total/Ch olesterol in HDL [Mass ratio] 2 {ratio} [facility] [employer] Comment on above: Ref Range: < 3 Low Risk for CHD 3-6 Mod Risk for CHD > 6 High Risk for CHD Interpretation and review of laboratory results Abnormal [facility] [employer] Triglyceride [Mass/Vol] 83 mg/dL NINF - 150 mg/dL [facility] MICROALBUMIN / CREATININE UR INE RATIOon 06-26-2024 CREATININE, URINE 112.3 mg/dL Normal No Range [facility] Comment on above: Performed By: #### L AB689 ####Salesperson [employer] Mach[employer]: JUDSON HERNANDEZ ([id number])[facility] VERITO R[employer]TMAN (SWRLAB)[address] [place] [address] MICROALBUMIN, URINE 18.0 mg/L Normal 0.0-29.9 [facility] [employer] [facility] Comment on above: Result Comment: ADAM Dodge COMMENTS: Microalbumin concentrations <30 are considered normal, 30-300 are considered microalbuminuria (or risk of diabetic nephropathy), and >300 are considered clinical albuminuria (clinical nephropathy). Diabetes Care,, Supplement 1, 2003 Performed By: #### L AB689 ####Salesperson Sewing Machines: JDUSON HERNANDEZ ([id number])[facility] VERITO SinaTMAN (SWRLAB)[address] [place] [address] MICROALBUMIN/CREATIN INE RATIO 16.0 mg/g Normal 0.0-29.9 [facility] [employer] [facility] Comment on above: Performed By: #### L AB689 ####Salesperson Sewing Mach[employer]: JUDSON HERNANDEZ ([phone])[facility] BEACHWOODNomadeskAN (SWRLAB)[address] [place] [address] Microalbumin/Creatinine rati o panel (U)on 06-26-2024 Albumin DL <= 20 mg/L (U) [Mass/Vol] 18 mg/L 0.0 - 29.9 mg/L [facility] Albumin/Creatinine DL <= 20 mg/L (U) [Mass ratio] 16 mg/g 0.0 - 29.9 mg/g [facility] [employer] CREATININE, URINE 112.3 mg/dL No Range [facility] [employer] Microalbumin concentrations <30 are considered normal, 30-300 are considered microalbuminuria (or risk of diabetic nephropathy), and >300 are considered clinical albuminuria (clinical nephropathy). Diabetes Care,, Supplement 1, V72003 [facility] [employer] [facility] [employer] No Panel Informationon 06-26 [facility] [employer] THYROID STIMULATING HORMONEo n 06-26-2024 THYROID STIMULATING HORMONE 0.129 uIU/mL Low 0.465-4.680 [facility] [employer] [facility] Comment on above: Performed By: #### L AB17, [id number], LAB18 ####Salesperson [employer]ing Mach[employer]: JUDSON HERNANDEZ ([id number])[facility] BEACHWOODTorax MedicalTMAN (SWRLAB)[address] [place] [address] TSHon 06-26-2024 TSH Qn 0.129 m[IU]/L Low [facility] h TSH Qnon 06-26-2024 Interpretation and review of laboratory results Abnormal [facility] VITAMIN D DEFICIENCY SCREENI NG (VIT D 25)on 06-26-2024 VIT D 25-OH, TOTAL 37 ng/mL Normal 30-100 [facility] Comment on above: Result Comment: ADAM Dodge COMMENTS: Therapy is based on measurement of Total 25-OHD with the following classification levels: Less than 20 ng/mL: Indicative of Vit D deficiency 20-30 ng/mL: Suggests Vit D insufficiency Optimal: Greater than or equal to 30 ng/mL Test performed by [employer] Immunoassay, measuring Total Vitamin D, not individual fractions. Performed By: #### L AB535 ####Salesperson Sewing Machines: NAVA MARTINEZ ([id number])[facility]ENTERJEET ([facility])[address] [place] [address] Vitamin D Deficiency Screeni ng (Vit D 25)on 06-26-2024 25-hydroxyvitamin D3 [Mass/Vol] 37 ng/mL 30 - 100 ng/mL [facility] Endocrinology Visit Reporton 06-10-2024 Endocrinology Visit Report [facility] [address] [place] [address]. [address] [place] [id number] OFFICE VISIT Date of Service: 06/10/24 MR#: [id number] Acct: [id number] Name: RENETTA HERRERA Chi Rep #: [id number] : 1970 Provider: SONAM sauer Age/Sex: 53/F [place] [facility] [place]: [place]igned Intake Vital Signs 12/26/23 10:43 06/10/24 13:08 Height 5 ft 5 in 5 ft 5 in Weight: 263 lb 4 oz 258 lb BMI 43.8 42.9 BP 120/78 121/82 H Blood Pressure Location Lt brachial Lt brachial Position Sitting Sitting Respiration 18 Pulse 88 88 Pulse Source Monitor Monitor Temp 98.7 F Temp Source Temporal Pulse Oximetry (%) 99 97 Oxygen Delivery Method room air room air Intake Visit Reasons: 5 M FU, RS 03/25 Chief Complaint: f/u diabetes Computer Game Programmer Required: No Accompanied by: Self Is patient in pain?: No Allergies metformin Adverse Reaction (Intermediate, Verified 06/10/24 13:12) Diarrhea Medications ???Medication ???Instructions ???Recorded ???Confirmed ???Type atorvastatin 20 mg tablet 20 mg PO DAILY 11/14/20 06/10/24 History pen needle, diabetic 32 gauge x #100 ea 01/26/22 06/10/24 Rx 32 (BD Ultra-Fine Gloria Pen Needle) valacyclovir 1 gram tablet 1,000 mg PO BID PRN 09/20/22 06/10/24 History (Valtrex) empagliflozin 25 mg tablet 25 mg PO DAILY #90 tabs 07/01/23 06/10/24 Rx (Jardiance) Tresiba FlexTouch U-100 100 20 unit (0.2 mL) subcut QHS #18 mL 03/04/24 06/10/24 Rx unit/mL (3 mL) subcutaneous pen (insulin degludec) glimepiride 4 mg tablet 4 mg PO QDAY 06/10/24 06/10/24 History levothyroxine 150 mcg tablet 150 mcg PO QDAY 06/10/24 06/10/24 History spironolactone 100 mg tablet 100 mg PO DAILY PRN 06/10/24 06/10/24 History tirzepatide 5 mg/0.5 mL 5 mg (0.5 mL) subcut QWEEK #6 mL 06/10/24 06/10/24 Rx subcutaneous pen injector (Mounjaro) 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 Mixed hyperlipidemia Diabetes Hypothyroidism Type 2 diabetes mellitus Surgical History History of thyroidectomy, total History of tubal ligation History of tonsillectomy History of breast lift H/O abdominoplasty S/P Family History Mother Cervical cancer Unknown Breast cancer Social History household members: spouse number of children: 2 current occupational status: employed current occupation: [employer] history of recent travel: No Smoking Status: Current every day smoker alcohol intake: never substance use type: does not use diet: low carbohydrate caffeine: Yes what type of physical activity do you participate in: walking frequency: 5-6 times per week seatbelt use: always do you feel safe at home: Yes additional social history: - Donald MONTELONGO HPI Chief Complaint: f/u diabetes Details: RENETTA HERRERA, is a 53 F who presents to the office today for evaluation and management of diabetes and hypothyroid. A1C today is 6.3%, improved from 12/26/23 at 6.7%. She has lost another 5 lbs. Currently taking Jardiance 25 mg once daily, glimepiride 4 mg prior to breakfast, Tresiba 18 u once daily and Mounjaro 7.5 mg qweek- not tolerating well; reports persistent diarrhea. She brings a blood sugar log for review- fasting blood sugars range from 70-s to low 100's. Denies any significant episode of hypoglycemia that have required assistance from others. Currently taking levothyroxine 150 mcg once daily. Recent TSH was >6.0 with PCP, I do not have record of this. Her TSH has been hard to keep stable. She is due for routine labs. Denies any acute concerns. ROS Gastro GI: Positive for diarrhea Exam Const General: cooperative, healthy appearing, comfortable and no acute distress Nutritional Appearance: obese Orientation: alert, awake and oriented x3 HENMT Head: normal to inspection Ears: hearing grossly normal bilaterally Nose: external nose normal Face and sinus: normal facial exam Eyes General: appearance normal, both eyes and all related structures Alignment and Position: alignment normal Sclera: sclerae normal Neck Neck: normal visual inspection Carotids: normal carotid upstroke Chest Chest palpation inspection: normal inspection of the chest Resp Effort Inspection: normal respiratory effort, able to speak in complete sentences, symmetric chest movement, normal respiratory pattern, no audible wheezes and no cough Auscultation: Bilateral: Clear to Auscultation Cardio Rate: regular rate Rhythm: regular rhythm Heart Sounds: S1 normal and S2 normal Bruits: no carotid bru (more content not included)... Normal [facility] 36on 05-27-2024 36 Prescription Request : Last medication check: 06/07/2023 Last physical exam: 12/17/2023 Next scheduled appointment: 06/16/2024 Last date of refill on this medication: 02/03/[address] [facility] 36on 05-18-2024 36 Reviewed chart. Refi ll appropriate. RX sent. [facility] 36 Prescription Request : Last medication check: 06/07/2023 Last physical exam: 12/17/2023 Next scheduled appointment: 06/16/2024 Last date of refill on this medication: 09/17/[address] [facility] 36on 02-19-2024 36 Reviewed chart. Refi ll appropriate. RX sent. [facility] Progress Noteon 02-18-2024 Progress Note Venipuncture complet ed by [facility]. [place] [address]on 02-03-2024 36 Prescription Request : Last medication check: 06/07/2023 Last physical exam: 12/17/2023 Next scheduled appointment: 06/16/2024 Last date of refill on this medication: 07/22/22 [place] [address]on 01-21-2024 36 ---- Message from Wong Carpenter MD sent at 01/17/2024 5:40 AM EDT ----- TSH has increased slightly with the increase in her thyroid medicine, would recommend increasing to 150 mcg and recheck in 4 weeks. Left a message to return call. Directions for CAC in the event patient calls back: If the patient is agreeable, please: 1. Verify what pharmacy RX will be sent to. 2. Schedule patient for nurse visit to repeat labs in 4 weeks. 3. Route this TE back to the office clinical pool so we can place lab orders and send in rx. Thanks! TSH order pended, new med dose pended. [facility] 36on 01-20-2024 36 ----- Message from Wong Carpenter MD sent at 01/17/2024 5:40 AM EDT ----- TSH has increased slightly with the increase in her thyroid medicine, would recommend increasing to 150 mcg and recheck in 4 weeks. Left a message to return call. Directions for CAC in the event patient calls back: If the patient is agreeable, please: 1. Verify what pharmacy RX will be sent to. 2. Schedule patient for nurse visit to repeat labs in 4 weeks. 3. Route this TE back to the office clinical pool so we can place lab orders and send in rx. Thanks! TSH order pended, new med dose pended. [facility] 36 ----- Message from Wong Carpenter MD sent at 01/17/2024 5:40 AM EDT ----- TSH has increased slightly with the increase in her thyroid medicine, would recommend increasing to 150 mcg and recheck in 4 weeks. Left a message to return call. [facility] 36on 01-16-2024 36 She came in today fo r this. [facility] Progress Noteon 01-16-2024 Progress Note Venipuncture complet ed by [facility] 36on 01-14-2024 [address] [facility] 36 Please refuse refill so encounter can be closed. Created encounter for her to be scheduled. Thank you! [facility] 36 If patient calls marcy riggs, please schedule her for a nurse visit for a lab draw of TSH. Please inform patient, her medication that she requested cannot be filled until her levels are check. She can have this done at anytime. Thank you! [facility] 36 Left a message to re turn call. [facility] 36 Needs to have her le alan rechecked before refill this [place] [id number] Prescription Request : Last medication check: 06/07/2023 Last physical exam: 12/17/2023 Next scheduled appointment: 06/16/2024 Last date of refill on this medication: 12/19/[address] [facility] 36on 01-08-2024 36 Called pt in error, Left a message to return call. If she calls back please tell her to disregard. [facility] Comprehensive metabolic 1998 panelon 12-01-2022 Albumin [Mass/Vol] 4.4 g/dL 3.6 - 5.1 g/dL [facility] ALP [Catalytic activity/Vol] 75 U/L 37 - 153 U/L [facility] ALT [Catalytic activity/Vol] 14 U/L 6 - 29 U/L [facility] Anion gap [Moles/Vol] 7 mmol/L [facility] AST [Catalytic activity/Vol] 13 U/L 10 - 35 U/L [facility] Bilirubin [Mass/Vol] 0.5 mg/dL 0.2 - 1 .2 mg/dL [facility] Calcium [Mass/Vol] 9.8 mg/dL 8.6 - 10. 4 mg/dL [facility] Chloride [Moles/Vol] 106 mmol/L 98 - 11 0 mmol/L [facility] CO2 [Moles/Vol] 26 mmol/L 20 - 32 mmol/L [facility] Creatinine [Mass/Vol] 0.77 mg/dL 0.50 - 1.03 mg/dL [facility] GFR/1.73 sq M.predicted among non-blacks MDRD (S/P/Bld) [Vol rate/Area] 93 mL/min/{1.73_m2} > OR = 60 mL/min/1.73m2 [facility] Comment on above: The eGFR is based on the CKD-EPI 2020 equation. To calculate the new eGFR from a previous Creatinine or Cystatin C result, go to https://www.kidney.org/professionals/ kdoqi/gfr%5Fcalculator Glucose [Mass/Vol] 94 mg/dL 65 - 99 mg/dL [facility] Comment on above: Fasting reference interval Potassium [Moles/Vol] 4.5 mmol/L 3.5 - 5.3 mmol/L [facility] Protein [Mass/Vol] 7.2 g/dL 6.1 - 8.1 g/dL [facility] Sodium [Moles/Vol] 139 mmol/L 135 - 146 mmol/L [facility] Urea nitrogen [Mass/Vol] 16 mg/dL 7 - 25 mg/dL [facility] Hemoglobin A1con 12-01-2022 HbA1c (Bld) [Mass fraction] 6.7 % High [facility] Comment on above: For someone without known diabetes, a hemoglobin A1c value of 6.5% or greater indicates that they may have diabetes and this should be confirmed with a follow-up test. For someone with known diabetes, a value <7% indicates that their diabetes is well controlled and a value greater than or equal to 7% indicates suboptimal control. A1c targets should be individualized based on duration of diabetes, age, comorbid conditions, and other considerations. Currently, no consensus exists regarding use of hemoglobin A1c for diagnosis of diabetes for children. Lipid 1996 panelon 3 Cholesterol [Mass/Vol] 142 mg/dL [facility] - 200 mg/dL [facility] Cholesterol in HDL [Mass/Vol] 67 mg/dL > OR = 50 [facility] Cholesterol in LDL [Mass/Vol] 60 mg/dL mg/dL (calc) [facility] Comment on above: Reference range: <10 0 Desirable range <100 mg/dL for primary prevention; <70 mg/dL for patients with CHD or diabetic patients with > or = 2 CHD risk factors. LDL-C is now calculated using the David calculation, which is a validated novel method providing better accuracy than the Friedewald equation in the estimation of LDL-C. Jean SSOA et al. PANKAJ. 2013;310(19): 6005-1356 (http://education.YouRenew/faq/NSI261) Cholesterol non HDL [Mass/Vol] 75 mg/dL [facility] Comment on above: For patients with di abetes plus 1 major ASCVD risk factor, treating to a non-HDL-C goal of <100 mg/dL (LDL-C of <70 mg/dL) is considered a therapeutic option. Cholesterol.total/Ch olesterol in HDL [Mass ratio] 2.1 {ratio} [facility] Triglyceride [Mass/Vol] 72 mg/dL [facility] - 150 mg/dL [facility] Microalbumin/Creatinine rati o panel (U)on 12-01-2022 Albumin DL <= 20 mg/L (U) [Mass/Vol] 1.7 mg/dL See Note: [facility] Comment on above: Reference Range: Reference Range Not established Albumin/Creatinine (U) [Mass ratio] 14 [facility] Comment on above: The ADA defines abnormalities in albumin excretion as follows: Albuminuria Category Result (mcg/mg creatinine) Normal to Mildly increased <30 Moderately increased 30-299 Severely increased > OR = 300 The ADA recommends that at least two of three specimens collected within a 3-6 month period be abnormal before considering a patient to be within a diagnostic category. Creatinine (U) [Mass/Vol] 118 mg/dL 20 - 275 mg/dL [facility] No Panel Informationon 12-01 Interpretation and review of laboratory results Abnormal [facility] TSHon 12-01-2022 TSH Qn 0.19 m[IU]/L Low mIU/L 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 Wong Carpenter, withtype 2 diabetes mellitus since 1996, postsurgical hypothyroidism, morbidobesity.She notes blood sugars are well controlled, but doesn't check them often.(+) smoker, says is smoking less.Refuses flu shots, had diabetic eye exam in 03/2017.Takes spironolactone for control of acne.Current Outpatient Prescriptions on File Prior to Visit:levothyroxine (SYNTHROID) 175 mcg tablet Take 1 tablet by mouth daily before. Take only 1/2 pill on Sundays.glimepiride (AMARYL) 4 mg tablet Take 1 tablet by mouth daily with breakfast.sitaGLIPtin (JANUVIA) 100 mg tablet Take 1 tablet by mouth once daily.spironolactone (ALDACTONE) 100 mg tablet Take 100 mg by mouth twice daily.ALLERGIESAllergen Reactions- Metformin GI UpsetPMHX:DiabetesHypoth yroidmorbid obesitySURGICAL HX;- C sections- breast lift- abdominoplasty (2006)- total thyroidectomySOCIAL HISTORYMarital Status: MarriedTobacco Use: 0.5 packs/dayAlcohol Use: NoDrug Use: NoSexual Activity: Not on fileFAMILY HISTORYProblem Relation Age of Onset- Cancer Mother cervical- Cancer Maternal Grandfather lung- Cancer Maternal Uncle liver- Breast Cancer Maternal Aunt y4Ijtdla of systems: Patient notes no weight changes, fever, weakness, change inbalance or sensation, visual problems, hearing changes, dizziness, troubleswallowing, nasal difficulties, shortness of breath, chest pain, change inexertional tolerance, foot or leg problems, skin lesions, abdominal pain,diarrhea, constipation, urinary problems, incontinence, back pain, joint pains,anxiety, depression, insomnia, menstrual difficulties, breastlesions/pain/mass. Remainder of review of systems was unremarkable.PHYSICAL EXAM:BP 122/74 (BP Site: Left Arm, BP Position: Sitting, BP Cuff Size: Large Adult) Pulse 70 Ht 164.5 cm (5' 4.75) Wt 120.9 kg (266 lb 9.6 oz) SpO2 99% BMI 44.71 kg/m?Weight up 8 pounds since 08/2017.General appearance: Well-appearing morbidly obese (BMI > 40) female, in noacute distressBlood pressure normal.Skin: Skin color, texture, turgor normal, no suspicious rashes or lesionsHead: normocephalic, no masses, lesions, tenderness or abnormalitiesEyes: Anicteric sclera. Pupils are equally round and reactive to light.Extraocular movements are intact.Neck: Supple, no adenopathy; well-healed thyroidectomy incision line. Nopalpable thyroid tissue.Breathing unlabored.Heart: RRRMusculoskeletal: Spine range of motion normal. Muscular strength intact, Nojoint swelling, deformity, or tendernessNeuro: Gait normal.Results for RENETTA HERRERA ( ) Ref. Range 09/11/2017 11:53 04/02/2018 10:19Sodium Latest Ref Range: 136 - 144 mmol/L 141Potassium Latest Ref Range: 3.7 - 5.1 mmol/L 4.7Chloride Latest Ref Range: 97 - 105 mmol/L 104CO2 Latest Ref Range: 22 - 30 mmol/L 25BUN Latest Ref Range: 7 - 21 mg/dL 16Creatinine Latest Ref Range: 0.58 - 0.96 mg/dL 0.98 (H)Glucose Latest Ref Range: 74 - 99 mg/dL 140 (H)Protein, Total Latest Ref Range: 6.3 - 8.0 g/dL 7.4Calcium Latest Ref Range: 8.5 - 10.2 mg/dL 9.7Albumin Latest Ref Range: 3.9 - 4.9 g/dL 4.2Bilirubin, Total Latest Ref Range: 0.2 - 1.3 mg/dL 0.4Alk Phosphatase Latest Ref Range: 32 - 117 U/L 71ALT Latest Ref Range: 7 - 38 U/L 18AST Latest Ref Range: 13 - 35 U/L 19Cholesterol, Total Latest Ref Range: 100 - 199 mg/dL 137Triglyceride Latest Ref Range: 30 - 149 mg/dL 71HDL Cholesterol Latest Ref Range: >55 mg/dL 55 (L)LDL Cholesterol Latest Ref Range: 60 - 129 mg/dL 68A1C (POCT) Latest Ref Range: 4.2 - 5.6 % 6.8 7.9 (A)Free T4 Latest Ref Range: 0.9 - 1.7 ng/dL 1.6TSH Latest Ref Range: 0.400 - 5.500 uU/mL 0.218 (L)Alb/Creat Ratio Latest Ref Range: 0 - 30 mg/g 9ASSESSMENT AND PLAN? Type 2 diabetes mellitus - worse control, weight. Consider bariatricsurgery, improved dietary strategy.? Hypothyroidism - check TFTs on the current levothyroxine dose? Morbid obesity - urged weight loss efforts, dietary counseling given? Tobacco abuse - urged her to quit smokingPLAN:? Get diabetic eye exam done.? Work on losing weight - dietary strategy reviewed? Get labs done at [facility] - TSH, free T4? Will call with results.? See me again in 6 months.? Repeat A1C again in 3 months, on or after 07/03/2018.? Consider bariatric surgery orientation at [facility].Sia Gutierrez MD, MD 04/02/2018 10:46 AM AddendumGet diabetic eye exam done.Work on losing weight.Avoid eating popcorn.More green vegetables.Get labs done at [facility].Try nutritional yeast as a cheese replacement.Will call with results.See me again in 6 months.Repeat A1C again in 3 months, on or after 07/03/2018.Consider bariatric surgery orientation at [facility].A1C 7.9%Referring Provider: KRISSY GARRETT [[id number]]Allergies As of Date: 04/02/2018 Noted Allergy ReactionMETFORMIN 03/30/2016 8 - GI UpsetDate Reviewed: 04/02/2018Reviewed by: Jagdeep Vasques Ma - Fully AssessedReason for Visit: Diabetes [34] Thyroid Problem [110]Reason For Visit History RecordedPrimary Visit Diagnosis:Controlled type 2 diabetes mellitus without complication, without long-term current use of insulin (HCC) [E11.9] Other Visit Diagnoses:Postsurgical hypothyroidism [E89.0] Morbid obesity (HCC) [E66.01] Tobacco abuse [Z72.0]Order(s):HEMOGLOB IN A1C (POC) [4517243] Order #: [id number] #:[id number] TSH BLD [SQTSH] Order #: [id number] FUTURE T4 FREE/FREE THYROX [SQFT4] Order #: [id number] FUTURE HGB A1C [GCAOU1G] Order #: [id number] FUTUREPrescriptions as of 04/02/2018 Sig: LEVOTHYROXINE 175 MCG TABLET Take 1 tablet by mouth daily * GLIMEPIRIDE 4 MG TABLET Take 1 tablet by mouth daily * SITAGLIPTIN 100 MG TABLET Take 1 tablet by mouth once d* SPIRONOLACTONE 100 MG TABLET Take 100 mg by mouth twice da*Problem List As Of Date 04/02/2018 Noted Resolved Diabetes mellitus type 2, controlled, without c*INVALID FOR* Postsurgical hypothyroidism [E89.0] INVALID FOR* More... Morbid obesity (HCC) [E66.01] INVALID FOR* Multiple thyroid nodules [E04.2] INVALID FOR*10/17/2016 Tobacco abuse [Z72.0] INVALID FOR* Chronic lymphocytic thyroiditis [E06.3] INVALID FOR*10/17/2016 Acne vulgaris [L70.0] INVALID FOR* Other instructions from your clinician: Get diabetic eye exam done. Work on losing weight. Avoid eating popcorn. More green vegetables. Get labs done at [facility]. Try nutritional yeast as a cheese replacement. Will call with results. See me again in 6 months. Repeat A1C again in 3 months, on or after 07/03/2018. Consider bariatric surgery orientation at [facility]. 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 Take only 1/2 pill on Sundays.glimepiride (AMARYL) 4 mg tablet Take 1 tablet by mouth daily withbreakfast.sitaGLIPti n (JANUVIA) 100 mg tablet Take 1 tablet by mouth once daily.spironolactone (ALDACTONE) 100 mg tablet Take 100 mg by mouth twice daily.ALLERGIESAllergen Reactions- Metformin GI UpsetPMHX:DiabetesHypoth yroidmorbid obesitySURGICAL HX;- C sections- breast lift- abdominoplasty (2006)- total thyroidectomySOCIAL HISTORYMarital Status: MarriedTobacco Use: 0.5 packs/dayAlcohol Use: NoDrug Use: NoSexual Activity: Not on fileFAMILY HISTORYProblem Relation Age of Onset- Cancer Mother cervical- Cancer Maternal Grandfather lung- Cancer Maternal Uncle liver- Breast Cancer Maternal Aunt [id number] of systems: Patient notes no weight changes, fever, weakness,change in balance or sensation, visual problems, hearing changes,dizziness, trouble swallowing, nasal difficulties, shortness of breath,chest pain, change in exertional tolerance, foot or leg problems, skinlesions, abdominal pain, diarrhea, constipation, urinary problems,incontinence, back pain, joint pains, anxiety, depression, insomnia,menstrual difficulties, breast lesions/pain/mass. Remainder of review ofsystems was unremarkable.PHYSICAL EXAM:BP 122/74 (BP Site: Left Arm, BP Position: Sitting, BP Cuff Size: LargeAdult) Pulse 70 Ht 164.5 cm (5' 4.75) Wt 120.9 kg (266 lb 9.6oz) SpO2 99% BMI 44.71 kg/m?Weight up 8 pounds since 08/2017.General appearance: Well-appearing morbidly obese (BMI > 40) female, in noacute distressBlood pressure normal.Skin: Skin color, texture, turgor normal, no suspicious rashes or lesionsHead: normocephalic, no masses, lesions, tenderness or abnormalitiesEyes: Anicteric sclera. Pupils are equally round and reactive to light.Extraocular movements are intact.Neck: Supple, no adenopathy; well-healed thyroidectomy incision line. Nopalpable thyroid tissue.Breathing unlabored.Heart: RRRMusculoskeletal: Spine range of motion normal. Muscular strength intact,No joint swelling, deformity, or tendernessNeuro: Gait normal.Results for RENETTA HERRERA ( ) Ref. Range 09/11/2017 11:53 04/02/2018 10:19Sodium Latest Ref Range: 136 - 144 mmol/L 141Potassium Latest Ref Range: 3.7 - 5.1 mmol/L 4.7Chloride Latest Ref Range: 97 - 105 mmol/L 104CO2 Latest Ref Range: 22 - 30 mmol/L 25BUN Latest Ref Range: 7 - 21 mg/dL 16Creatinine Latest Ref Range: 0.58 - 0.96 mg/dL 0.98 (H)Glucose Latest Ref Range: 74 - 99 mg/dL 140 (H)Protein, Total Latest Ref Range: 6.3 - 8.0 g/dL 7.4Calcium Latest Ref Range: 8.5 - 10.2 mg/dL 9.7Albumin Latest Ref Range: 3.9 - 4.9 g/dL 4.2Bilirubin, Total Latest Ref Range: 0.2 - 1.3 mg/dL 0.4Alk Phosphatase Latest Ref Range: 32 - 117 U/L 71ALT Latest Ref Range: 7 - 38 U/L 18AST Latest Ref Range: 13 - 35 U/L 19Cholesterol, Total Latest Ref Range: 100 - 199 mg/dL 137Triglyceride Latest Ref Range: 30 - 149 mg/dL 71HDL Cholesterol Latest Ref Range: >55 mg/dL 55 (L)LDL Cholesterol Latest Ref Range: 60 - 129 mg/dL 68A1C (POCT) Latest Ref Range: 4.2 - 5.6 % 6.8 7.9 (A)Free T4 Latest Ref Range: 0.9 - 1.7 ng/dL 1.6TSH Latest Ref Range: 0.400 - 5.500 uU/mL 0.218 (L)Alb/Creat Ratio Latest Ref Range: 0 - 30 mg/g 9ASSESSMENT AND PLAN? Type 2 diabetes mellitus - worse control, weight. Consider bariatricsurgery, improved dietary strategy.? Hypothyroidism - check TFTs on the current levothyroxine dose? Morbid obesity - urged weight loss efforts, dietary counseling given? Tobacco abuse - urged her to quit smokingPLAN:? Get diabetic eye exam done.? Work on losing weight - dietary strategy reviewed? Get labs done at [facility] - TSH, free T4? Will call with results.? See me again in 6 months.? Repeat A1C again in 3 months, on or after 07/03/2018.? Consider bariatric surgery orientation at [facility].Krissy Garrett MD Normal [facility] Albumin/Creat Ratioon 2016 Albumin Urine Random 33.3 mg/L High 0.0-23.0 [facility] Comment on above: Performed By: #### U ACR ####[facility], [place] [phone] Albumin/Creat Ratio 9 mg/g Normal 0-30 [facility] Comment on above: Result Comment: 30 t o 300 mg/g indicates an increased risk for diabetic nephropathy. Greater than 300 mg/g is consistent with clinical nephropathy. (Am J Kidney Disease 1995, 25:107) Performed By: #### U ACR ####[facility], [place] [phone] Creatinine,Urine,Ran 354.4 mg/dL High 20-300 [facility] Comment on above: Performed By: #### U ACR ####[facility] [id number], [place] [phone] CNOVon 09-11-2017 CNOV Office Visit (ENDMED) RENETTA HERRERA ([id number]) 1970 [facility] Time Provider Vnxrbmraew66/22/17 11:25 AM KRISSY GARRETT During your visit today, we recorded the following information about you: Pulse Blood pressure Weight Height 76/minute 107/73 117.4 kg 1.641 [facility] MD, 09/11/2017 3:05 PM SignedFollow-up 46 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 Wong Carpenter, withtype 2 diabetes mellitus since 1996, hypothyroidism, morbid obesity.She notes blood sugars are well controlled, but doesn't check them often.(+) smokerShe underwent total thyroidectomy 05/21/2016, says pathology was benign.Neck tightness resolved.Refuses flu shots, had diabetic eye exam in 03/2016.Current Outpatient Prescriptions on File Prior to Visit:sitaGLIPtin (JANUVIA) 100 mg tablet Take 1 tablet by mouth once daily.levothyroxine (SYNTHROID) 175 mcg tablet Take 1 tablet by mouth daily beforebreakfast.spironol actone (ALDACTONE) 100 mg tablet Take 100 mg by mouth twice daily.glimepiride (AMARYL) 4 mg tablet Take 1 tablet by mouth daily with breakfast.ALLERGIESAller gen Reactions- Metformin GI UpsetPMHX:DiabetesHypoth yroidmorbid obesitySURGICAL HX;- C sections- breast lift- abdominoplasty (2006)- total thyroidectomySOCIAL HISTORYMarital Status: MarriedTobacco Use: 0.5 packs/dayAlcohol Use: NoDrug Use: NoSexual Activity: Not on fileFAMILY HISTORYProblem Relation Age of Onset- Cancer Mother cervical- Cancer Maternal Grandfather lung- Cancer Maternal Uncle liver- Breast Cancer Maternal Aunt d8Hlqsie of systems: Patient notes no weight changes, fever, weakness, change inbalance or sensation, visual problems, hearing changes, dizziness, troubleswallowing, nasal difficulties, shortness of breath, chest pain, change inexertional tolerance, foot or leg problems, skin lesions, abdominal pain,diarrhea, constipation, urinary problems, incontinence, back pain, joint pains,anxiety, depression, insomnia, menstrual difficulties, breastlesions/pain/mass. Remainder of review of systems was unremarkable.PHYSICAL EXAM:BP 107/73 (BP Site: Left Arm, BP Position: Sitting, BP Cuff Size: Large Adult) Pulse 76 Ht 164.1 cm (5' 4.61ANDquot;) Wt 117.4 kg (258 lb 12.8 oz) [id number]% BMI 43.59 kg/q0Tmwnkb up 5 pounds since 09/2016.General appearance: Well-appearing morbidly obese (BMI ANDgt; 40) female, in noacute distress,morbidly obeseBlood pressure normal.Skin: Skin color, texture, turgor normal, no suspicious rashes or lesionsHead: normocephalic, no masses, lesions, tenderness or abnormalitiesEyes: Anicteric sclera. Pupils are equally round and reactive to light.Extraocular movements are intact.Neck: Supple, no adenopathy; well-healed thyroidectomy incision line. Nopalpable thyroid tissue.Breathing unlabored.Heart: RRRMusculoskeletal: Spine range of motion normal. Muscular strength intact, Nojoint swelling, deformity, or tendernessNeuro: Gait normal.Feet:Shoes and socks removed, No deformities, ulcers, mild calluses, normaldistal pulses and kiuaezqsvS2N today via Afinion was 6.8%.Results for RENETTA HERRERA ( ) Ref. Range 10/17/2016 11:48 01/04/2017 14:33Sodium Latest Ref Range: 136 - 144 mmol/L 141Potassium Latest Ref Range: 3.7 - 5.1 mmol/L 4.5Chloride Latest Ref Range: 97 - 105 mmol/L 103CO2 Latest Ref Range: 22 - 30 mmol/L 27BUN Latest Ref Range: 7 - 21 mg/dL 14Creatinine Latest Ref Range: 0.58 - 0.96 mg/dL 0.88Glucose Latest Ref Range: 74 - 99 mg/dL 111 (H)Protein, Total Latest Ref Range: 6.3 - 8.0 g/dL 7.3Calcium Latest Ref Range: 8.6 - 10.0 mg/dL 9.6Albumin Latest Ref Range: 3.9 - 4.9 g/dL 4.4Bilirubin, Total Latest Ref Range: 0.2 - 1.3 mg/dL 0.2Alk Phosphatase Latest Ref Range: 32 - 117 U/L 66ALT Latest Ref Range: 7 - 38 U/L 15AST Latest Ref Range: 13 - 35 U/L 18Cholesterol Latest Ref Range: 100 - 199 mg/dL 217 (H)Triglyceride Latest Ref Range: 30 - 149 mg/dL 118HDL Cholesterol Latest Ref Range: ANDgt;55 mg/dL 60LDL Cholesterol Latest Ref Range: 60 - 129 mg/dL 133 (H)Hemoglobin A1C Latest Ref Range: 4.3 - 5.6 % 6.2 (H)Free T4 Latest Ref Range: 0.9 - 1.7 ng/dL 1.1 1.3TSH Latest Ref Range: 0.400 - 5.500 uU/mL 3.210 0.887Microalb/Cr Ratio Latest Ref Range: 0 - 30 mg/g 9ASSESSMENT ANDamp; PLANType 2 diabetes mellitus - improving control, historically. Check CMP, lipidpanel, and urine microalbumin/creatinine ratioHypothyroidism - check TFTs on the current levothyroxine doseMorbid obesity - urged weight loss efforts, dietary counseling givenTobacco abuse - urged her to quit smokingPLAN: Check A1C, CMP, lipid panel, urine microalbumin/creatinine ratio, TSH,free T4 Will call with results Strongly recommended the patient quit smoking See us again in 6 months Dietary counseling Sia Todd MD, MD 09/11/2017 11:26 AM KotjnlT3C 6.8%.Get labs done at [facility].Will call with results.Quit smoking.Work on losing weight.See me again in 6 months.Referring Provider: KRISSY GARRETT [[id number]]Allergies As of Date: 09/11/2017 Noted Allergy ReactionMETFORMIN 03/30/2016 8 - GI UpsetDate Reviewed: 09/11/2017Reviewed by: Jagdeep Vasques Ma - Fully AssessedReason for Visit: Diabetes [34] Thyroid Problem [110]Reason For Visit History RecordedPrimary Visit Diagnosis:Uncontrolled type 2 diabetes mellitus without complication, without long-term current use of insulin (HCC) [E11.65] Other Visit Diagnoses:Postsurgical hypothyroidism [E89.0] Morbid obesity (HCC) [E66.01] Tobacco abuse [Z72.0]Order(s):HEMOGLOB IN A1C (POC) [3115790] Order #: [id number]. #:[id number] TSH BLD [SQTSH] Order #: [id number] FUTURE T4 FREE/FREE THYROX [SQFT4] Order #: [id number] FUTURE COMP METABOLIC PANEL [SQCMP] Order #: [id number] FUTURE LIPID PANEL BASIC [SQLIPB] Order #: [id number] FUTURE ALBUMIN/CREAT RATIO RND UR [SQUACR] Order #: [id number] FUTUREPrescriptions as of 09/11/2017 Sig: SITAGLIPTIN 100 MG TABLET Take 1 tablet by mouth once d* LEVOTHYROXINE 175 MCG TABLET Take 1 tablet by mouth daily * SPIRONOLACTONE 100 MG TABLET Take 100 mg by mouth twice da* GLIMEPIRIDE 4 MG TABLET Take 1 tablet by mouth daily *Problem List As Of Date 09/11/2017 Noted Resolved Diabetes mellitus type 2, uncontrolled, without*INVALID FOR* Postsurgical hypothyroidism [E89.0] INVALID FOR* More... Morbid obesity (HCC) [E66.01] INVALID FOR* Multiple thyroid nodules [E04.2] INVALID FOR*10/17/2016 Tobacco abuse [Z72.0] INVALID FOR* Chronic lymphocytic thyroiditis [E06.3] INVALID FOR*10/17/2016 Acne vulgaris [L70.0] INVALID FOR* Other instructions from your clinician: A1C 6.8%. Get labs done at [facility]. Will call with results. Quit smoking. Work on losing weight. See me again in 6 months.Follow-up and Disposition History RecordedEncounter Number: [id number] Status:Closed by KRISSY GARRETT MD on 09/11/17 Normal [facility] Comp Metabolic Panelon 09-11 Alanine aminotransferase (ALT) 18 U/L Normal 7-38 [facility] Comment on above: Performed By: #### C MP, LIPB, TSH, FT4 ####[place] [address] [place] [phone] Albumin 4.2 g/dL Normal 3.9-4.9 [facility] Comment on above: Performed By: #### C MP, LIPB, TSH, FT4 ####[place] [address] [place] [phone] Alkaline phosphatase (ALP) 71 U/L Normal 32-117 [facility] Comment on above: Performed By: #### C MP, LIPB, TSH, FT4 ####[place] [address] [place] [place] [phone] Anion gap 12 mmol/L Normal 9-18 [facility] Comment on above: Performed By: #### C MP, LIPB, TSH, FT4 ####[place] [phone] Aspartate aminotransferase (AST) 19 U/L Normal 13-35 [facility] Comment on above: Performed By: #### C MP, LIPB, TSH, FT4 ####[place] [address] [place] [address] [phone] Bilirubin (total) 0.4 mg/dL Normal 0.2-1.3 [facility] Comment on above: Performed By: #### C MP, LIPB, TSH, FT4 ####[place] [address] [place] [place] [phone] Calcium 9.7 mg/dL Normal 8.5-10.2 [facility] Comment on above: Performed By: #### C MP, LIPB, TSH, FT4 ####[facility] [address], [place] [phone] Chloride 104 mmol/L Normal 97-105 [facility] Comment on above: Performed By: #### C MP, LIPB, TSH, FT4 ####[facility] [address] [phone] CO2 25 mmol/L Normal 22-30 [facility] Comment on above: Performed By: #### C MP, LIPB, TSH, FT4 ####[facility] [place] [phone] Creatinine 0.98 mg/dL High 0.58-0.96 [facility] Comment on above: Performed By: #### C MP, LIPB, TSH, FT4 ####[facility] [place] [phone] eGFR (non-black) mL/min/{1.73_m2} Normal [facility] Comment on above: Result Comment: eGFR (Estimated GFR) Units of measure: mL/min/1.73 meters squaredeGFR is derived from the reexpressed MDRD Study equation using the following parameters: serum creatinine, age, gender and race. The creatinine assay has been calibrated to be traceable to IDMS.An eGFR <60 mL/min/1.73m2 for >3 months is consistent with chronic kidney disease. Refer to KDOQI guidelines for clinical interpretation.In patients with unstable renal function, e.g. those with acute kidney injury, the eGFR may not accurately reflect actual GFR. Performed By: #### C MP, LIPB, TSH, FT4 ####[facility] [place] [phone] Glucose mass conc 140 mg/dL High 74-99 [facility] Comment on above: Result Comment: The [place] Diabetes Association (ADA) provides guidance for cutoff values for fasting glucose and random glucose. The ADA defines fasting as no caloric intake for at least 8 hours. Fasting plasma glucose results between 100 to 125 mg/dL indicate increased risk for diabetes (prediabetes).Fasting plasma glucose results greater than or equal to 126 mg/dL meet the criteria for diagnosis of diabetes. In the absence of unequivocal hyperglycemia, results should be confirmed by repeat testing. In a patient with classic symptoms of hyperglycemia or hyperglycemic crisis, random plasma glucose results greater than or equal to 200 mg/dL meet the criteria for diagnosis of diabetes.Reference: Standards of Medical Care in Diabetes 2016, [place] Diabetes Association. Diabetes Care. 2016.39(Suppl 1). Performed By: #### C MP, LIPB, TSH, FT4 ####[place] [phone] Potassium molar conc 4.7 mmol/L Normal 3.7-5.1 [facility] Comment on above: Performed By: #### C MP, LIPB, TSH, FT4 ####[place] [phone] Protein 7.4 g/dL Normal 6.3-8.0 [facility] Comment on above: Performed By: #### C MP, LIPB, TSH, FT4 ####[place] [phone] Sodium 141 mmol/L Normal 136-144 [facility] Comment on above: Performed By: #### C MP, LIPB, TSH, FT4 ####[place] [phone] Urea nitrogen 16 mg/dL Normal 7-21 [facility] Comment on above: Performed By: #### C MP, LIPB, TSH, FT4 ####[place] [phone] Free T4on 09-11-2017 Thyroxine (T4) free 1.6 ng/dL Normal 0.9-1.7 [facility] Comment on above: Performed By: #### C MP, LIPB, TSH, FT4 ####[place] [phone] Lipid Panel, Basicon 09-11- 017 Cholesterol 137 mg/dL Normal 100-199 [facility] Comment on above: Performed By: #### C MP, LIPB, TSH, FT4 ####[place] [address] [address], [place] [phone] Fasting Time 12 hrs Normal [facility] Comment on above: Performed By: #### C MP, LIPB, TSH, FT4 ####[place] [address] [place] [phone] HDL Cholesterol 55 mg/dL Low >55 [facility] Comment on above: Performed By: #### C MP, LIPB, TSH, FT4 ####[place] [address] [place] [phone] LDL Cholesterol 68 mg/dL Normal 60-129 [facility] Comment on above: Performed By: #### C MP, LIPB, TSH, FT4 ####[place] [address] [address] [place] [phone] LDL:HDL Ratio 1.24 Normal 0.50-3.55 [facility] Comment on above: Performed By: #### C MP, LIPB, TSH, FT4 ####[place] [address] [address] [place] [phone] Non HDL Cholesterol 82 mg/dL Low 90-159 [facility] Comment on above: Performed By: #### C MP, LIPB, TSH, FT4 ####[place] [address] [place] [phone] TC:HDL Ratio 2.49 Normal 1.00-5.00 [facility] Comment on above: Performed By: #### C MP, LIPB, TSH, FT4 ####[place] [address] [place] [phone] Triglyceride 71 mg/dL Normal 30-149 [facility] Comment on above: Performed By: #### C MP, LIPB, TSH, FT4 ####[facility] [address] [place], [place] [phone] VLDL Cholesterol 14 mg/dL Normal 6-40 [facility] Comment on above: Performed By: #### C MP, LIPB, TSH, FT4 ####[facility] [address] [place], [place] [phone] PROGRESSon 09-11-2017 PROGRESS HNO ID: [id number]: Krissy Garrett, MDService: (none)Author Type: PhysicianType: Progress NotesFiled: 09/11/2017 3:05 PMNote Text:Follow-up 46 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 Wong Carpenter,with type 2 diabetes mellitus since 1996, hypothyroidism, morbid obesity.She notes blood sugars are well controlled, but doesn't check them often.(+) smokerShe underwent total thyroidectomy 05/21/2016, says pathology was benign.Neck tightness resolved.Refuses flu shots, had diabetic eye exam in 03/2016.Current Outpatient Prescriptions on File Prior to Visit:sitaGLIPtin (JANUVIA) 100 mg tablet Take 1 tablet by mouth once daily.levothyroxine (SYNTHROID) 175 mcg tablet Take 1 tablet by mouth dailybefore breakfast.spironolactone (ALDACTONE) 100 mg tablet Take 100 mg by mouth twice daily.glimepiride (AMARYL) 4 mg tablet Take 1 tablet by mouth daily withbreakfast.ALLERGIESA llergen Reactions- Metformin GI UpsetPMHX:DiabetesHypoth yroidmorbid obesitySURGICAL HX;- C sections- breast lift- abdominoplasty (2006)- total thyroidectomySOCIAL HISTORYMarital Status: MarriedTobacco Use: 0.5 packs/dayAlcohol Use: NoDrug Use: NoSexual Activity: Not on fileFAMILY HISTORYProblem Relation Age of Onset- Cancer Mother cervical- Cancer Maternal Grandfather lung- Cancer Maternal Uncle liver- Breast Cancer Maternal Aunt y5Uvewko of systems: Patient notes no weight changes, fever, weakness,change in balance or sensation, visual problems, hearing changes,dizziness, trouble swallowing, nasal difficulties, shortness of breath,chest pain, change in exertional tolerance, foot or leg problems, skinlesions, abdominal pain, diarrhea, constipation, urinary problems,incontinence, back pain, joint pains, anxiety, depression, insomnia,menstrual difficulties, breast lesions/pain/mass. Remainder of review ofsystems was unremarkable.PHYSICAL EXAM:BP 107/73 (BP Site: Left Arm, BP Position: Sitting, BP Cuff Size: LargeAdult) Pulse 76 Ht 164.1 cm (5' 4.61) Wt 117.4 kg (258 lb 12.8 oz) SpO2 100% BMI 43.59 kg/m4Xmoeiz up 5 pounds since 09/2016.General appearance: Well-appearing morbidly obese (BMI > 40) female, in noacute distress,morbidly obeseBlood pressure normal.Skin: Skin color, texture, turgor normal, no suspicious rashes or lesionsHead: normocephalic, no masses, lesions, tenderness or abnormalitiesEyes: Anicteric sclera. Pupils are equally round and reactive to light.Extraocular movements are intact.Neck: Supple, no adenopathy; well-healed thyroidectomy incision line. Nopalpable thyroid tissue.Breathing unlabored.Heart: RRRMusculoskeletal: Spine range of motion normal. Muscular strength intact,No joint swelling, deformity, or tendernessNeuro: Gait normal.Feet:Shoes and socks removed, No deformities, ulcers, mild calluses,normal distal pulses and ywddtnlksI5A today via Afinion was 6.8%.Results for RENETTA HERRERA ( ) Ref. Range 10/17/2016 11:48 01/04/2017 14:33Sodium Latest Ref Range: 136 - 144 mmol/L 141Potassium Latest Ref Range: 3.7 - 5.1 mmol/L 4.5Chloride Latest Ref Range: 97 - 105 mmol/L 103CO2 Latest Ref Range: 22 - 30 mmol/L 27BUN Latest Ref Range: 7 - 21 mg/dL 14Creatinine Latest Ref Range: 0.58 - 0.96 mg/dL 0.88Glucose Latest Ref Range: 74 - 99 mg/dL 111 (H)Protein, Total Latest Ref Range: 6.3 - 8.0 g/dL 7.3Calcium Latest Ref Range: 8.6 - 10.0 mg/dL 9.6Albumin Latest Ref Range: 3.9 - 4.9 g/dL 4.4Bilirubin, Total Latest Ref Range: 0.2 - 1.3 mg/dL 0.2Alk Phosphatase Latest Ref Range: 32 - 117 U/L 66ALT Latest Ref Range: 7 - 38 U/L 15AST Latest Ref Range: 13 - 35 U/L 18Cholesterol Latest Ref Range: 100 - 199 mg/dL 217 (H)Triglyceride Latest Ref Range: 30 - 149 mg/dL 118HDL Cholesterol Latest Ref Range: >55 mg/dL 60LDL Cholesterol Latest Ref Range: 60 - 129 mg/dL 133 (H)Hemoglobin A1C Latest Ref Range: 4.3 - 5.6 % 6.2 (H)Free T4 Latest Ref Range: 0.9 - 1.7 ng/dL 1.1 1.3TSH Latest Ref Range: 0.400 - 5.500 uU/mL 3.210 0.887Microalb/Cr Ratio Latest Ref Range: 0 - 30 mg/g 9ASSESSMENT AND PLANType 2 diabetes mellitus - improving control, historically. Check CMP,lipid panel, and urine microalbumin/creatinine ratioHypothyroidism - check TFTs on the current levothyroxine doseMorbid obesity - urged weight loss efforts, dietary counseling givenTobacco abuse - urged her to quit smokingPLAN: Check A1C, CMP, lipid panel, urine microalbumin/creatinine ratio,TSH, free T4 Will call with results Strongly recommended the patient quit smoking See us again in 6 months Dietary counseling Toñito Garrett MD Normal [facility] TSHon 09-11-2017 Thyroid stimulating hormone (TSH) 0.218 uU/mL Low 0.400-5.500 [facility] Comment on above: Result Comment: If t he patient is , TSH reference range varies by gestational period:First Trimester 0.100-2.500 uU/mLSecond Trimester 0.200-3.000 uU/mLThird Trimester 0.300-3.000 uU/mLReferences: 1. Kenny, Octavio M, Roberto MARIE, et al. Management of Thyroid Dysfunction during and : An Endocrine Society Clinical Practice Guideline. J Clin Endocrinol Metab, 2012:97:1218-2246. 2. Lalo GALO. Overview of thyroid disease in . UpToDate. 2016. Accessed on April 06, 2016. Performed By: #### C MP, LIPB, TSH, FT4 ####[facility] [address] [place], [place] [phone] Vital Signs Date Time Vital Sign Value Performing Clinician Facility 12-28-2024 10:41-0400 Body height 165.1 cm Christiano Bridenthal AUTOPSY PATHOLOGIST - ENGRAVER MACHINE Work Phone: [facility] [employer] 12-28-2024 10:41-0400 Body mass index (BMI) [Ratio] 42.73 kg/m2 Christiano Bridenthal AUTOPSY PATHOLOGIST - ENGRAVER MACHINE Work Phone: [facility] [employer] 12-28-2024 10:41-0400 Body temperature 96.91 [degF] Christiano Bridenthal AUTOPSY PATHOLOGIST - ENGRAVER MACHINE Work Phone: [facility] [employer] 12-28-2024 10:41-0400 Body weight 116.48 kg Christiano Bridenthal AUTOPSY PATHOLOGIST - ENGRAVER MACHINE Work Phone: [facility] [employer] 12-28-2024 10:41-0400 Diastolic blood pressure 73 mm[Hg] Christiano Bridenthal AUTOPSY PATHOLOGIST - ENGRAVER MACHINE Work Phone: [facility] [employer] 12-28-2024 10:41-0400 Heart rate 75 /min Christiano Bridenthal AUTOPSY PATHOLOGIST - ENGRAVER MACHINE Work Phone: [facility] [employer] 12-28-2024 10:41-0400 Respiratory rate 18 /min Christiano Bridenthal AUTOPSY PATHOLOGIST - ENGRAVER MACHINE Work Phone: [facility] [employer] 12-28-2024 10:41-0400 SaO2% (BldA) [Mass fraction] 95 % Christiano Bridenthal AUTOPSY PATHOLOGIST - ENGRAVER MACHINE Work Phone: [facility] [employer] 12-28-2024 10:41-0400 Systolic blood pressure 107 mm[Hg] Christiano Bridenthal AUTOPSY PATHOLOGIST - ENGRAVER MACHINE Work Phone: [facility] [employer] 07-13-2024 10:50-0400 Body height 165.1 cm Wong Carpenter MD Work Phone: [facility] [employer] 07-13-2024 10:50-0400 Body mass index (BMI) [Ratio] 42.97 kg/m2 Wong Carpenter MD Work Phone: [facility] [employer] 07-13-2024 10:50-0400 Body weight 117.12 kg Wong Carpenter MD Work Phone: [facility] [facility] [employer] 07-13-2024 10:50-0400 Diastolic blood pressure 75 mm[Hg] Wong Carpenter MD Work Phone: [facility] [facility] [employer] 07-13-2024 10:50-0400 Heart rate 80 /min Wong Carpenter MD Work Phone: [facility] [employer] [facility] [employer] 07-13-2024 10:50-0400 SaO2% (BldA) [Mass fraction] 98 % Wong Carpenter MD Work Phone: [facility] [facility] [employer] 07-13-2024 10:50-0400 Systolic blood pressure 112 mm[Hg] Wong Carpenter MD Work Phone: [facility] [employer] 12-17-2023 13:16-0500 Body height 165.1 cm Wong Carpenter MD Work Phone: [facility] [employer] 12-17-2023 13:16-0500 Body mass index (BMI) [Ratio] 42.9 kg/m2 Wong Carpenter MD Work Phone: [facility] [employer] 12-17-2023 13:16-0500 Body weight 116.94 kg Wong Carpenter MD Work Phone: [facility] [employer] 12-17-2023 13:16-0500 Diastolic blood pressure 77 mm[Hg] Wong Carpenter MD Work Phone: [facility] [facility] [employer] 12-17-2023 13:16-0500 Heart rate 75 /min Wong Carpenter MD Work Phone: [facility] [facility] [employer] 12-17-2023 13:16-0500 SaO2% (BldA) [Mass fraction] 98 % Wong Carpenter MD Work Phone: [facility] [employer] 12-17-2023 13:16-0500 Systolic blood pressure 118 mm[Hg] Wong Carpenter MD Work Phone: [facility] [employer] 06-07-2023 11:20-0400 Body height 165.1 cm Wong Carpenter MD Work Phone: [facility] [employer] 06-07-2023 11:20-0400 Body mass index (BMI) [Ratio] 44.4 kg/m2 Wong Carpenter MD Work Phone: [facility] [employer] 06-07-2023 11:20-0400 Body weight 121.02 kg Wong Carpenter MD Work Phone: [facility] [employer] 06-07-2023 11:20-0400 Diastolic blood pressure 80 mm[Hg] Wong Carpenter MD Work Phone: [facility] [employer] 06-07-2023 11:20-0400 Heart rate 74 /min Wong Carpenter MD Work Phone: [facility] [employer] 06-07-2023 11:20-0400 SaO2% (BldA) [Mass fraction] 96 % Wong Carpenter MD Work Phone: [facility] [employer] 06-07-2023 11:20-0400 Systolic blood pressure 116 mm[Hg] Wong Carpenter MD Work Phone: [facility] [employer] 05-16-2023 09:56-0400 Diastolic blood pressure 82 mm[Hg] Michelet Calvert MD Work Phone: [facility] [employer] 05-16-2023 09:56-0400 Heart rate 72 /min Michelet Calvert MD Work Phone: [facility] [employer] 05-16-2023 09:56-0400 Respiratory rate 16 /min Michelet Calvert MD Work Phone: [facility] [facility] [employer] 05-16-2023 09:56-0400 SaO2% (BldA) [Mass fraction] 100 % Michelet Calvert MD Work Phone: [facility] 05-16-2023 09:56-0400 Systolic blood pressure 128 mm[Hg] Michelet Calvert MD Work Phone: [facility] 05-16-2023 09:36-0400 Body temperature 97.81 [degF] Michelet Calvert MD Work Phone: [facility] 05-16-2023 08:36-0400 Body height 165.1 cm Michelet Calvert MD Work Phone: [facility] 05-16-2023 08:36-0400 Body mass index (BMI) [Ratio] 43.27 kg/m2 Michelet Calvert MD Work Phone: [facility] 05-16-2023 08:36-0400 Body weight 117.94 kg Michelet Calvert MD Work Phone: [facility] 03-20-2023 13:10-0400 Body height 165.[address] Wong Carpenter Work Phone: [facility] 03-20-2023 13:10-0400 Body mass index (BMI) [Ratio] 44.6 kg/m2 Dr. Wong Carpenter Work Phone: [facility] 03-20-2023 13:10-0400 Body temperature 98.4 [degF] Dr. Wong Carpenter Work Phone: [facility] 03-20-2023 13:10-0400 Body weight 121.[address] Wong Carpenter Work Phone: [facility] 03-20-2023 13:10-0400 Diastolic blood pressure 74 mm[Hg] Dr. Wong Carpenter Work Phone: [facility] 03-20-2023 13:10-0400 Heart rate 74 /min Dr. Wong Carpenter Work Phone: [facility] 03-20-2023 13:10-0400 Respiratory rate 16 /min Dr. Wong Carpenter Work Phone: [facility] 03-20-2023 13:10-0400 SaO2% (BldA) [Mass fraction] 98 % Dr. Wong Carpenter Work Phone: [facility] 03-20-2023 13:10-0400 Systolic blood pressure 127 mm[Hg] Dr. Wong Carpenter Work Phone: [facility] 11-30-2022 11:28-0500 Body height 164.5 cm Wong Carpenter MD Work Phone: [facility] 11-30-2022 11:28-0500 Body mass index (BMI) [Ratio] 44.07 kg/m2 Wong Carpenter MD Work Phone: [facility] [employer] 11-30-2022 11:28-0500 Body weight 119.2 kg Wong Carpenter MD Work Phone: [facility] 11-30-2022 11:28-0500 Diastolic blood pressure 71 mm[Hg] Wong Carpenter MD Work Phone: [facility] [employer] 11-30-2022 11:28-0500 Heart rate 76 /min Wong Carpenter MD Work Phone: [facility] [employer] 11-30-2022 11:28-0500 Systolic blood pressure 122 mm[Hg] Wong Carpenter MD Work Phone: [facility] [employer] Encounters Encounter Date Encounter Type Care Provider Facility Start: 04-02-2025 ambulatory Kira Calvin NP Facility :[facility] Start: 12-28-2024 End: 12-28-2024 Periodic preventive med est patient 40-64yrs Christiano Duenas AUTOPSY PATHOLOGIST - ENGRAVER MACHINE Work Phone: [facility] Comment on above: Type 2 diabetes darby itus without complication, with long-term current use of insulin (CMS/HCC) (HCC) (Primary Dx); 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 Start: 12-17-2024 End: 12-17-2024 ambulatory Jett Tuttel Facility:[facility] Start: 11-25-2024 End: 11-25-2024 Refill Christiano Bridenthal AUTOPSY PATHOLOGIST - ENGRAVER MACHINE Work Phone: [facility] Start: 11-12-2024 End: 11-12-2024 Refill Christiano Bridenthal AUTOPSY PATHOLOGIST - ENGRAVER MACHINE Work Phone: [facility] Start: 08-16-2024 End: 08-17-2024 Refill Christiano Bridenthal AUTOPSY PATHOLOGIST - ENGRAVER MACHINE Work Phone: [facility] Start: 07-13-2024 End: 07-13-2024 Office outpatient visit 25 minutes Wong Carpenter MD Work Phone: [facility] Comment on above: Type 2 diabetes darby itus without complication, with long-term current use of insulin ([facility]/HCC) (HCC) (Primary Dx); Hypothyroidism, postop; Pure hypercholesterolemia Start: 07-13-2024 End: 07-13-2024 ambulatory [facility] Start: 06-26-2024 End: 09-25-2024 Transcribe Orders Jett Tuttle AUTOPSY PATHOLOGIST - ENGRAVER MACHINE Work Phone: [facility] Comment on above: Other specified hypo thyroidism (Primary Dx); Autoimmune thyroiditis Start: 06-10-2024 End: 06-10-2024 ambulatory Jett Tuttle Facility:[facility] Start: 05-27-2024 End: 05-27-2024 Refill Wong Carpenter MD Work Phone: [facility] Start: 05-18-2024 End: 05-18-2024 Refill Christiano Bridenthal AUTOPSY PATHOLOGIST - ENGRAVER MACHINE Work Phone: [facility] Start: 02-18-2024 End: 02-18-2024 ambulatory [facility] Start: 01-20-2024 Telephone encounter Wong Gonzalez MD Work Phone: [facility] Comment on above: Results Start: 01-16-2024 End: 01-16-2024 ambulatory WONG CARPENTER [facility] Start: 12-17-2023 End: 12-17-2023 Patient encounter procedure Wong Carpenter MD Work Phone: [facility] Work Phone: Start: 12-17-2023 End: 12-17-2023 Periodic preventive med est patient 40-64yrs Wong Carpenter MD Work Phone: [facility] Comment on above: Annual physical exam (Primary Dx); Hypothyroidism, postop; Pure hypercholesterolemia; Morbid obesity (HCC); Tobacco use; Type 2 diabetes mellitus without complication, with long-term current use of insulin (CMS/HCC) (HCC) Start: 09-17-2023 Refill Wong Carpenter MD Work Phone: [facility] Start: 06-07-2023 End: 06-07-2023 Office outpatient visit 10 minutes Wong Carpenter MD Work Phone: [facility] Comment on above: Hypothyroidism, post op (Primary Dx) Start: 05-16-2023 End: 05-16-2023 Subsequent hospital visit by physician Michelet Calvert MD Work Phone: [facility] Endoscopy Comment on above: Breast cancer screen ing, high risk patient (Primary Dx) Start: 04-18-2023 Refill Christiano gallo AUTOPSY PATHOLOGIST - ENGRAVER MACHINE Work Phone: [facility] Start: 04-08-2023 End: 04-08-[address] Wong Carpenter Work Phone: [facility] Work Phone: Start: 04-08-2023 End: 04-08-[address] Wong Carpenter Work Phone: [facility] Start: 04-04-2023 Refill Kira Calvin AUTOPSY PATHOLOGIST - ENGRAVER MACHINE Work Phone: [facility] Start: 03-20-2023 End: 03-20-[address] Wong Carpenter Work Phone: [facility] Start: 01-18-2023 Orders Only Kira Calvin AUTOPSY PATHOLOGIST - ENGRAVER MACHINE Work Phone: [facility] Start: 12-06-2022 Refill Kira Calvin AUTOPSY PATHOLOGIST - ENGRAVER MACHINE Work Phone: [facility] Start: 11-30-2022 End: 11-30-2022 Patient encounter procedure Wong Carpenter MD Work Phone: [facility] Start: 11-30-2022 End: 11-30-2022 Periodic preventive med est patient 40-64yrs Wong Carpenter MD Work Phone: [facility] Comment on above: Annual physical exam (Primary Dx); Uncontrolled type 2 diabetes mellitus with hyperglycemia (HCC); Hypothyroidism, postop; Pure hypercholesterolemia; Tobacco use; Screening for colon cancer; Encounter for screening mammogram for malignant neoplasm of breast Start: 04-02-2018 End: 04-02-2018 [facility] Start: 09-11-2017 End: 09-11-2017 Ambulatory KRISSY GARRETT [facility] Procedures Date Procedure Procedure Detail Performing Clinician Start: 12-28-2024 Adult depression scr eening assessment Christiano Yulissa AUTOPSY PATHOLOGIST - ENGRAVER MACHINE Work Phone: Start: 06-26-2024 Lipid 1996 panel - S emery or Plasma Wong Carpenter MD Work Phone: Start: 06-26-2024 Thyrotropin [Units/v olume] in Serum or Plasma Wong Carpenter MD Work Phone: Start: 02-18-2024 Thyrotropin [Units/v olume] in Serum or Plasma Christiano Duenas AUTOPSY PATHOLOGIST - ENGRAVER MACHINE Work Phone: Start: 01-16-2024 Thyrotropin [Units/v olume] in Serum or Plasma Wong Carpenter MD Work Phone: Start: 12-17-2023 Adult depression scr eening assessment Wong Carpenter MD Work Phone: Start: 12-17-2023 Lipid 1996 panel - S emery or Plasma Wong Carpenter MD Work Phone: Start: 07-09-2023 Thyrotropin [Units/v olume] in Serum or Plasma Wong Carpenter MD Work Phone: Start: 06-06-2023 Adult depression scr eening assessment Wong Carpenter MD Work Phone: Start: 05-16-2023 Colonoscopy Michelet taylor MD Work Phone: Start: 04-08-2023 End: 04-08-[address] Wong Carpenter Work Phone: Start: 01-17-2023 Thyrotropin [Units/v olume] in Serum or Plasma Kira Calvin AUTOPSY PATHOLOGIST - ENGRAVER MACHINE Work Phone: Start: 11-30-2022 Comprehensive metabo lic panel Wong Carpenter MD Work Phone: Start: 11-30-2022 Lipid panel Wong Gonzalez MD Work Phone: Start: 11-30-2022 Urine albumin quantitative Wong Carpenter MD Work Phone: Start: 11-30-2022 Lipid 1996 panel - S emery or Plasma Wong Carpenter MD Work Phone: Start: 11-30-2022 End: 11-30-2022 Thyrotropin [Units/volume] in Serum or Plasma Wong Carpenter MD Work Phone: Start: 11-22-2020 Microscopic observat ion [Identifier] in Cervix by Cyto stain Wong Carpenter MD Work Phone: Start: 09-08-2020 Mammography Wong caro MD Work Phone: Plan of Treatment Date Care Activity Detail Author Start: 2045 RSV Immunization for Adults (1 - 1-dose 75+ series) RSV Immunization for Adults (1 - 1-dose 75+ series) [facility] Start: 05-16-2033 Screening for malignant neoplasm of colon [facility] Start: 2030 RSV Immunization aged 60 or older (1 - 1-dose 60+ series) RSV Immunization aged 60 or older (1 - 1-dose 60+ series) [facility] Start: 03-09-2030 DTaP/Tdap/Td Vaccines (2 - Td or Tdap) DTaP/Tdap/Td Vaccines (2 - Td or Tdap) [facility] Start: 12-28-2025 Depression Screening Depression Screening [facility] Start: 12-28-2025 Screening for malignant neoplasm of breast Mammogram [facility] Comment on above: Postponed from 04/08/2024 (Other Patient Reasons) Start: 06-30-2025 End: 06-30-2025 Patient encounter procedure 06/30/2025 10:45 AM EDT Office Visit [address] [address] Wong Carpenter MD [address] [place] [id number] [facility] Start: 06-26-2025 Diabetes: Estimated Glomerular Filtration Rate for [facility] Diabetes: Estimated Glomerular Filtration Rate for [facility] Start: 06-26-2025 Diabetes: Urine Albumin-Creatinine Ratio for [facility] Diabetes: Urine Albumin-Creatinine Ratio for [facility] Start: 06-26-[address]25 [address] Lipid Panel [facility] Start: 06-26-2025 Thyroid stimulating hormone measurement TSH Level [facility] Start: 06-10-2025 Hemoglobin A1c measurement Diabetes: Hemoglobin A1C [facility] Start: 04-19-2025 Influenza vaccination Influenza Vaccine (#1) [facility] Comment on above: Postponed from 06/21/2024 (Patient Refus ed) Start: 02-17-2025 Thyroid stimulating hormone measurement TSH Level [facility] Start: 01-15-2025 Thyroid stimulating hormone measurement TSH Level 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 Work Phone: Comment on above: Expected: 12/28/2024 (Approximate), Expi res: 12/24/2025 Start: 12-28-2024 End: 12-28-2024 Patient encounter procedure [facility] Start: 12-17-2024 Depression Screening Depression Screening [facility] Start: 12-17-2024 Diabetes: Estimated Glomerular Filtration Rate for [facility] Diabetes: Estimated Glomerular Filtration Rate for [facility] Start: 12-17-2024 Diabetes: Urine Albumin-Creatinine Ratio for [facility] Diabetes: Urine Albumin-Creatinine Ratio for [facility] Start: 12-17-2024 Diabetic foot examination Diabetes: Foot Exam [facility] Start: 12-17-2024 Hemoglobin A1c measurement Diabetes: Hemoglobin A1C [facility] Start: 12-17-2024 Lipid [address] Lipid Panel [facility] Start: 07-09-2024 Thyroid stimulating hormone measurement TSH Level [facility] Start: 06-21-2024 COVID-19 Vaccine ( season) COVID-19 Vaccine ( season) [facility] Start: 06-21-2024 COVID-19 Vaccine ( season) COVID-19 Vaccine ( season) [facility] Start: 06-21-[address] [facility] Start: 06-17-2024 Preventive dental service Diabetes: Dental Exam [facility] Start: 06-16-2024 End: 06-16-2024 Patient encounter procedure 06/16/2024 1:15 PM EDT Office Visit [facility] [address] [place] [address] [place] [address] Wong Carpenter MD [address] [place] [address] [address] [address] [facility] Start: 06-06-2024 Depression Screening Depression Screening [facility] Start: 06-06-2024 Hepatitis B Vaccines (1 of 3 - 19+ 3-dose series) Hepatitis B Vaccines (1 of 3 - 19+ 3-dose series) [facility] Comment on above: Postponed from 1989 (Patient Refus ed) Start: 06-06-2024 Hepatitis B Vaccines (1 of 3 - 3-dose series) Hepatitis B Vaccines (1 of 3 - 3-dose series) [facility] Comment on above: Postponed from 1970 (Patient Refus ed) Start: 06-06-2024 Pneumococcal Vaccine: Pediatrics (0 to 5 Years) and At-Risk Patients (6 to 64 Years) (2 - PCV) Pneumococcal Vaccine: Pediatrics (0 to 5 Years) and At-Risk Patients (6 to 64 Years) (2 - PCV) [facility] Comment on above: Postponed from 10/24/2022 (Patient Refus ed) Start: 06-06-2024 Pneumococcal Vaccine: Pediatrics (0 to 5 Years) and At-Risk Patients (6 to 64 Years) (2 of 2 - PCV) Pneumococcal Vaccine: Pediatrics (0 to 5 Years) and At-Risk Patients (6 to 64 Years) (2 of 2 - PCV) [facility] Comment on above: Postponed from 10/24/2022 (Patient Refus ed) Start: 06-06-2024 Zoster Vaccines (1 of 2) Zoster Vaccines (1 of 2) [facility] Comment on above: Postponed from 2020 (Patient Refus ed) Start: 04-08-2024 Screening for malignant neoplasm of breast Mammogram [facility] Start: 02-19-2024 End: 01-19-2025 Thyrotropin [Units/volume] in Serum or Plasma TSH Lab Routine Hypothyroidism, postop Expected: 02/19/2024 (Approximate), Expires: 01/19/2025 [facility] Work Phone: Comment on above: Expected: 02/19/2024 (Approximate), Expi res: 01/19/2025 Start: 02-18-2024 End: 02-18-2024 Clinical Support 02/18/2024 1:00 PM EDT Clinical Support [facility] [address] [facility] [place] [address] [facility] Start: 01-18-2024 Thyroid stimulating hormone measurement TSH Level [facility] Start: 12-17-2023 End: 12-17-2024 Comprehensive metabolic 1998 panel - Serum or Plasma Comprehensive metabolic panel Lab Routine Type 2 diabetes mellitus without complication, with long-term current use of insulin (CMS/HCC) (HCC) Expected: 12/17/2023 (Approximate), Expires: 12/17/2024 [facility] Comment on above: Expected: 12/17/2023 (Approximate), Expi res: 12/17/2024 Start: 12-17-2023 End: 12-17-2024 Hemoglobin A1c measurement Hemoglobin A1c Lab Routine Type 2 diabetes mellitus without complication, with long-term current use of insulin (CMS/HCC) (HCC) Expected: 12/17/2023 (Approximate), Expires: 12/17/2024 [facility] Comment on above: Expected: 12/17/2023 (Approximate), Expi res: 12/17/2024 Start: 12-17-2023 End: 12-17-2024 Lipid 1996 panel - Serum or Plasma Lipid panel Lab Routine Pure hypercholesterolemia Expected: 12/17/2023 (Approximate), Expires: 12/17/2024 [facility] Work Phone: Comment on above: Expected: 12/17/2023 (Approximate), Expi res: 12/17/2024 Start: 12-17-2023 End: 12-17-2024 Microalbumin/Creatin ine panel in random Urine Microalbumin / creatinine urine ratio Lab Routine Type 2 diabetes mellitus without complication, with long-term current use of insulin (CMS/HCC) (HCC) Expected: 12/17/2023 (Approximate), Expires: 12/17/2024 [facility] Comment on above: Expected: 12/17/2023 (Approximate), Expi res: 12/17/2024 Start: 12-17-2023 End: 12-17-2024 Thyrotropin [Units/volume] in Serum or Plasma TSH Lab Routine Hypothyroidism, postop Expected: 12/17/2023 (Approximate), Expires: 12/17/2024 [facility] Comment on above: Expected: 12/17/2023 (Approximate), Expi res: 12/17/2024 Start: 12-13-2023 End: 12-13-2023 Patient encounter procedure 12/13/2023 11:00 AM EST Office Visit [address] [place] [address] Wong Carpenter MD [address] [place] [address] [place] [address] [facility] Start: 11-30-2023 Diabetic foot examination Diabetes: Foot Exam [facility] Start: 11-30-2023 Hemoglobin A1c measurement Diabetes: Hemoglobin A1C [facility] Start: 11-30-2023 [address] Lipid Panel [facility] Start: 11-30-2023 Thyroid stimulating hormone measurement TSH Level [facility] Start: 11-30-2023 Urine screening for protein Diabetes: Urine Protein Screening [facility] Start: 11-22-2023 Screening for malignant neoplasm of cervix [facility] Start: 07-31-2023 Glaucoma screening Diabetes: Retinopathy Screening [facility] Start: 06-21-2023 COVID-19 Vaccine ( season) COVID-19 Vaccine ( season) [facility] Start: 06-21-[address] [facility] Start: 06-07-2023 End: 06-06-2024 Thyrotropin [Units/volume] in Serum or Plasma TSH Lab Routine Hypothyroidism, postop Expected: 06/07/2023 (Approximate), Expires: 06/06/2024 [facility] Work Phone: Comment on above: Expected: 06/07/2023 (Approximate), Expi res: 06/06/2024 Start: 06-07-2023 End: 06-07-2023 Patient encounter procedure [facility] Start: 05-16-2023 End: 05-16-2023 Admission to same day surgery center [facility] Endoscopy Comment on above: COLONOSCOPY SCREENING [G0121] Start: 05-16-2023 End: 05-16-2023 Colon ca scrn not hi rsk ind [facility] Gastroenterology Start: 05-16-2023 Subsequent hospital visit by physician [facility] End[facility] Start: 02-27-2023 Hemoglobin A1c measurement Diabetes: Hemoglobin A1C [facility] Start: 12-31-2022 End: 12-31-2022 Clinical Support 12/31/2022 Clinical Support Family Medicine [facility] Start: 11-30-2022 End: 01-28-2024 MG Breast - bilateral Screening Bilateral screening mammogram Imaging Routine Encounter for screening mammogram for malignant neoplasm of breast Expected: 11/30/2022, Expires: 01/28/2024 [facility] [employer] [facility] Work Phone: Comment on above: Expected: 11/30/2022, Expires: Start: 10-24-2022 Pneumococcal Vaccine: 50+ Years (2 of 2 - PCV) Pneumococcal Vaccine: 50+ Years (2 of 2 - PCV) [facility] Start: 10-24-2022 Pneumococcal Vaccine: Pediatrics (0 to 5 Years) and At-Risk Patients (6 to 64 Years) (2 - PCV) Pneumococcal Vaccine: Pediatrics (0 to 5 Years) and At-Risk Patients (6 to 64 Years) (2 - PCV) [facility] Start: 10-24-2022 Pneumococcal Vaccine: Pediatrics (0 to 5 Years) and At-Risk Patients (6 to 64 Years) (2 of 2 - PCV) Pneumococcal Vaccine: Pediatrics (0 to 5 Years) and At-Risk Patients (6 to 64 Years) (2 of 2 - PCV) [facility] Start: 07-31-2022 Glaucoma screening Diabetes: Retinopathy Screening [facility] Start: 06-21-2022 Influenza vaccination Influenza Vaccine (#1) [facility] Start: 01-06-2022 COVID-19 Vaccine (4 - Booster for Moderna series) COVID-19 Vaccine (4 - Booster for Moderna series) [facility] Start: 09-08-2021 Screening for malignant neoplasm of breast Mammogram [facility] Start: 2020 Zoster Vaccines (1 of 2) Zoster Vaccines (1 of 2) [facility] Start: 2000 Screening for malignant neoplasm of cervix HPV/Cotest [facility] Start: 1989 Hepatitis B Vaccines (1 of 3 - 19+ 3-dose series) Hepatitis B Vaccines (1 of 3 - 19+ 3-dose series) [facility] Start: 1988 Hepatitis C screening Hepatitis C Screening [facility] Start: 1982 Depression Screening Depression Screening [facility] Start: 1980 Glaucoma screening Diabetes: Retinopathy Screening [facility] Start: 1980 Preventive dental service Diabetes: Dental Exam [facility] Start: 1971 MMR Vaccines (1 of 1 - Standard series) MMR Vaccines (1 of 1 - Standard series) [facility] Start: 1970 Hepatitis B Vaccines (1 of 3 - 3-dose series) Hepatitis B Vaccines (1 of 3 - 3-dose series) [facility] Start: 1970 HIV screening HIV Screening [facility] Start: 1970 Screening for malignant neoplasm of colon [facility] OUTSIDE PROCEDURE SCAN OUTSIDE PROCEDURE SCAN Procedures Ordered: 06/26/2024 [facility] Comment on above: Ordered: 06/26/2024 Immunizations Immunization Date Immunization Notes Care Provider Fa cility 10-24-2021 pneumococcal polysac charide vaccine, 23 valent Wong Carpenter MD Work Phone: [facility] 10-02-2021 influenza, injectabl e, quadrivalent, preservative free Wong Carpenter MD Work Phone: [facility] 10-02-2021 influenza virus vacc ine, unspecified formulation Wong Carpenter MD Work Phone: [facility] 08-30-2020 influenza, injectabl e, quadrivalent, contains preservative Wong Carpenter MD Work Phone: [facility] 03-09-2020 tetanus toxoid, redu brett diphtheria toxoid, and acellular pertussis vaccine, adsorbed Wong Carpenter MD Work Phone: [facility] Payers Date Payer Category Payer Self-pay [id number] 2021 Unknown [id number] 2021 [employer] Tesfaye Carroll ld Managed Care - HMO [id number] 2021 Unknown [id number] 2021 Unknown [id number] 2014 Unknown [facility] [id number] Unknown [id number] Unknown [id number] Unknown [id number] Social History Date Type Detail Facility Start: 1986 End: 12-28-2024 Tobacco smoking status NDIS Smokes tobacco daily [facility] Start: 1986 History of tobacco use Cigarette Smo ker [facility] Start: 11-30-2022 End: 12-17-2023 Cigarettes smoked current (pack per day) - Reported 0.3 [facility] Start: 11-30-2022 End: 12-28-2024 Tobacco use and exposure Smokeless tobacco non-user [facility] Start: 11-30-2022 End: 12-28-2024 Alcohol intake Ex-drinker (finding) [facility] [facility] Start: 11-29-2022 History SDOH Financial 5 [facility] Start: 11-29-2022 History SDOH Transpo rt Med 2 [facility] Start: 1970 Sex Assigned At Not on file [facility] Start: 11-20-2022 End: 06-07-2023 Exposure to SARS-CoV-2 (event) Not sure [facility] Start: 11-30-2022 End: 12-17-[address] [facility] How hard is it for y ou to pay for the very basics like food, housing, medical care, and heating Not hard at all [facility] Start: 03-20-2023 [facility] Start: 1970 Sex Assigned At Female [facility] Start: 05-16-2023 Alcohol intake Current drinke r of alcohol (finding) [facility] Start: 05-16-2023 Alcohol Comment rarely [facility] How often to you hav e a drink containing alcohol? Never [facility] (I/We) worried wheeladia er (my/our) food would run out before (I/we) got money to buy more. Never true [facility] In the past 12 month s, was there a time when you were not able to pay the mortgage or rent on time? No [facility] Are you now , , , , never or living with a partner? [facility] Do you feel stress - tense, restless, nervous, or anxious, or unable to sleep at night because your mind is troubled all the time - these days [OSQ] Not at all [facility] Start: 05-21-2022 Sex Female (finding) [facility] Medical Equipment Procedure Code Equipment Code Equipment Origin al Text Equipment Identifier Dates [id number] Start: 06-13-2020 USE TO TEST BLOODSUGAR TWICE A DAY [id number] Start: 06-13-2020 Pen Needle, Diab etic (Bd Ultra-Fine Gloria Pen Needle) 32 gauge x 5/32 needle Start: 01-26-2022 Clinical Notes 11-30-2022 to 12-28-2024 Assessment & Plan Note - ALTAGRACIA Dang CNP - 12/28/2024 5:29 PM EDTAssessment & Plan Note - ALTAGRACIA Dang CNP - 12/28/2024 5:29 PM EDT Note Date & Type Note Facility 12-28-2024 Evaluation + Plan note Associated Problem(s): Hyperlipidemia Controlled, continue atorvastatin [address] [facility] 12-28-2024 Evaluation + Plan note Associated Problem(s): Type 2 diabetes mellitus without complication, with long-term current use of insulin ([facility] ([facility]) Controlled. Last hemoglobin A1c was 6.9 at endocrinology, continue Mounjaro 5 mg weekly, glimepiride 4 mg daily, Jardiance 25 mg daily, Tresiba [address] [facility] 12-28-2024 Miscellaneous Notes Associated Problem(s): Hyperlipidemia Controlled, continue atorvastatin 20 mg daily Associated Problem(s): Type 2 diabetes mellitus without complication, with long-term current use of insulin ([facility]) ([facility]) Controlled. 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 documented in this encounter [facility] 12-28-2024 Evaluation + Plan note Associated Problem(s): Hypothyroidism due to Lopez thyroiditis Check TSH, continue levothyroxine [address] [facility] 12-28-2024 History of Present illness Narrative Health Maintenance Due Topic Hepatitis B Vaccines-declined Zoster Vaccines-declined Diabetes: Retinopathy Screening-DUE been over a year Pneumococcal Vaccine-declined Cervical Cancer Screening-DUE w/ marcanthony Mammogram-marcanthony orders Diabetes: Dental Exam-6 months ago Influenza Vaccine-declined COVID-19 Vaccine-declined Depression Screening-NEEDS COMPLETED Diabetes: Foot Exam-PENDED Images from the original note were not included. 12/28/2024 Renetta Herrera (: 1970) is a 54 y.o. female , Established patient, here for evaluation of the following chief complaint(s): Annual Exam and Health Maintenance (Hepatitis B Vaccines-declined/Zoster Vaccines-declined/Diabetes: Retinopathy Screening-DUE been over a year/Pneumococcal Vaccine-declined/Cervical Cancer Screening-DUE w/ sanam/Mammogram-sanam orders/Diabetes: Dental Exam-6 months ago /Influenza Vaccine-declined/COVID-19 Vaccine-declined/Depression Screening-NEEDS COMPLETED/Diabetes: Foot Exam-PENDED/) ASSESSMENT/PLAN: 1. Type 2 diabetes mellitus without complication, with long-term current use of insulin ([facility]) ([facility]) Assessment & Plan: Controlled. Last hemoglobin A1c was 6.9 at endocrinology, continue Mounjaro 5 mg weekly, glimepiride 4 mg daily, Jardiance 25 mg daily, Tresiba 16 units nightly Orders: - Jardiance 25 MG; Take 1 tablet (25 mg) by mouth daily., Starting 12/28/2024, Normal - glimepiride (Amaryl) 4 MG tablet; Take 1 tablet (4 mg) by mouth daily (with breakfast)., Starting Sat12/28/2024, Normal 2. 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 Orders: - TSH 3. Pure hypercholesterolemia Assessment & Plan: Controlled, continue atorvastatin 20 mg daily 4. Screening for deficiency anemia 5. Encounter for screening mammogram for malignant neoplasm of breast Follow up in about 6 months (around 06/30/2025). SUBJECTIVE/OBJECTIVE: HPI - Renetta Herrera (: 1970) is a 54 y.o. female , Established patient, here for the evaluation of the following chief complaint(s): Annual Exam and Health Maintenance (Hepatitis B Vaccines-declined/Zoster Vaccines-declined/Diabetes: Retinopathy Screening-DUE been over a year/Pneumococcal Vaccine-declined/Cervical Cancer Screening-DUE w/ sanam/Mammogram-sanam orders/Diabetes: Dental Exam-6 months ago /Influenza Vaccine-declined/COVID-19 Vaccine-declined/Depression Screening-NEEDS COMPLETED/Diabetes: Foot Exam-PENDED/) Patient presents for her annual exam. She sees endocrinology for her diabetes and for hypothyroidism. We do prescribe many of her diabetic medications and the levothyroxine. She last had her blood work checked in June 2024 and will have it checked again in May 2025. Her labs are checked by the manpower development specialist manager. We will check her TSH today as it was slightly low when endocrine checked it in June 2024. Patient states that she would prefer to have it on the lower end of normal. Checks her sugars twice daily and the manpower development specialist manager checked [id number] hemoglobin A1c last month and it was 6.9. She is due for her mammogram and her Pap smear-she sees IMPORT EXPORT COORDINATOR that. Denies any acute concerns or complaints today. Prior to Admission medications Medication Sig Start Date End Date Taking? Authorizing Provider atorvastatin (Lipitor) 20 MG tablet TAKE 1 TABLET BY MOUTH EVERY DAY IN THE MORNING 11/12/24 Yes Christiano Duenas, AUTOPSY PATHOLOGIST - ENGRAVER MACHINE B-D UF III MINI PEN NEEDLES 31G X 5 MM misc USE DIRECTED EVERY DAY 12/17/24 Yes Historical Provider, BD Pen Needle Gloria 2nd Gen 32G X 4 MM misc USE DIRECTED ONCE DAILY 05/01/22 Yes Historical Provider, glimepiride (Amaryl) 4 MG tablet Take 2 tablets (8 mg) by mouth daily (with breakfast). 07/13/24 Yes Wong Carpenter MD glucose blood (Accu-Chek Lauren Plus) test strip USE TO TEST BLOODSUGAR TWICE A DAY 06/13/20 Yes Historical Provider, Jardiance 25 MG TAKE 1 TABLET BY MOUTH EVERY DAY 05/27/24 Yes Wong Carpenter MD levothyroxine (Synthroid, Levoxyl) 150 MCG tablet TAKE 1 TABLET BY MOUTH EVERY DAY 11/25/24 Yes Wong Carpenter MD Mounjaro 5 MG/0.5ML solution pen-injector INJECT 0.5 ML (5 MG) SUBCUTANEOUSLY WEEKLY 06/10/24 Yes Historical Provider, spironolactone (Aldactone) 100 MG tablet TAKE 1 TABLET BY MOUTH TWICE A DAY 04/18/23 Yes Wong Carpenter MD Tresiba FlexTouch 100 UNIT/ML injection 16 Units Nightly. 05/06/22 Yes Historical Provider, valACYclovir (Valtrex) 1 g tablet Take 2 tablets by mouth in the morning and 2 tablets before bedtime. 03/02/20 Yes Historical Provider, Review of Systems Constitutional: Negative. HENT: Negative. Eyes: Negative for visual disturbance. Last eye exam - 1 year Respiratory: Negative. Cardiovascular: Negative. Gastrointestinal: Negative. Genitourinary: Negative. Musculoskeletal: Negative. Neurological: Negative. Psychiatric/Behavioral: Negative. Vitals: 12/28/24 1041 BP: 107/73 Pulse: 75 Resp: 18 Temp: 36.1 C (96.9 F) TempSrc: Infrared SpO2: 95% Weight: 256 lb 12.8 oz (116 kg) Height: 5' 5 (1.651 m) Physical Exam Constitutional: General: She is not in acute distress. Appearance: Normal appearance. She is normal weight. She is not ill-appearing. HENT: Head: Normocephalic and atraumatic. Right Ear: Tympanic membrane, ear canal and external ear normal. There is no impacted cerumen. Left Ear: Tympanic membrane, ear canal and external ear normal. There is no impacted cerumen. Nose: Nose normal. No congestion or rhinorrhea. Mouth/Throat: Mouth: Mucous membranes are moist. Pharynx: Oropharynx is clear. Uvula midline. No oropharyngeal exudate or posterior oropharyngeal erythema. Eyes: Conjunctiva/sclera: Conjunctivae normal. Pupils: Pupils are equal, round, and reactive to light. Neck: Vascular: No carotid bruit. Cardiovascular: Rate and Rhythm: Normal rate and regular rhythm. Pulses: Normal pulses. Heart sounds: Normal heart sounds. Pulmonary: Effort: Pulmonary effort is normal. No respiratory distress. Breath sounds: Normal breath sounds. Abdominal: General: Abdomen is flat. Bowel sounds are normal. Palpations: Abdomen is soft. Tenderness: There is no abdominal tenderness. There is no right CVA tenderness or left CVA tenderness. Musculoskeletal: General: Normal range of motion. Cervical back: Normal range of motion and neck supple. No rigidity or tenderness. Lymphadenopathy: Cervical: No cervical adenopathy. Skin: General: Skin is warm and dry. Findings: No erythema or rash. Neurological: General: No focal deficit present. Mental Status: She is alert and oriented to person, place, and time. Psychiatric: Mood and Affect: Mood normal. Behavior: Behavior normal. An electronic signature was used to authenticate this note. ALTAGRACIA Calabrese CNP 12/28/2024 5:29 PM documented in this encounter [facility] 11-25-2024 Telephone encounter Note Prescription Request: Last medication check: 07/13/24 Last physical exam: 12/17/23 Next scheduled appointment: 12/28/24 Last date of refill on this medication 08/17/[address] [facility] 11-25-2024 Miscellaneous Notes Prescription Request: Last medication check: 07/13/24 Last physical exam: 12/17/23 Next scheduled appointment: 12/28/24 Last date of refill on this medication 08/17/24 90 and 1 refill documented in this encounter [facility] 11-12-2024 Telephone encounter Note Reviewed chart. Refill appropriate. RX sent. [facility] 11-12-2024 Miscellaneous Notes Reviewed chart. Refill appropriate. RX sent. Prescription Request: Last medication check: 07/13/24 Last physical exam: 12/17/23 Next scheduled appointment: 12/28/24 Last date of refill on this medication 05/18/24 90 and 1 refill documented in this encounter [facility] 11-12-2024 Telephone encounter Note Prescription Request: Last medication check: 07/13/24 Last physical exam: 12/17/23 Next scheduled appointment: 12/28/24 Last date of refill on this medication 05/18/[address] [facility] 08-17-2024 Telephone encounter Note Reviewed chart. Refill appropriate. RX sent. [facility] 08-17-2024 Miscellaneous Notes Reviewed chart. Refill appropriate. RX sent. Prescription Request: Last medication check: 07/13/24 Last physical exam: 12/17/23 Next scheduled appointment: 12/28/24 Last date of refill on this medication 02/19/24 90 and 1 refill documented in this encounter [facility] 08-17-2024 Telephone encounter Note Prescription Request: Last medication check: 07/13/24 Last physical exam: 12/17/23 Next scheduled appointment: 12/28/24 Last date of refill on this medication 02/19/[address] [facility] 07-13-2024 Evaluation + Plan note Associated Problem(s): Hyperlipidemia Controlled, continue atorvastatin [address] [facility] 07-13-2024 Evaluation + Plan note Associated Problem(s): Type 2 diabetes mellitus without complication, with long-term current use of insulin ([facility] ([facility]) Controlled, last A1c was 6.3 at endocrinology continue Mounjaro 5 mg, Tresiba 16 units nightly and glimepiride 8 mg daily and Jardiance [address] [facility] 07-13-2024 Miscellaneous Notes Associated Problem(s): Hyperlipidemia Controlled, continue atorvastatin 20 mg daily Associated Problem(s): Type 2 diabetes mellitus without complication, with long-term current use of insulin ([facility] ([facility]) Controlled, last A1c was 6.3 at endocrinology continue Mounjaro 5 mg, Tresiba 16 units nightly and glimepiride 8 mg daily and Jardiance 25 mg daily Associated Problem(s): Hypothyroidism, postop Stable, continue levothyroxine 150 mcg documented in this encounter [facility] 07-13-2024 Evaluation + Plan note Associated Problem(s): Hypothyroidism, postop Stable, continue levothyroxine [address] [facility] 07-13-2024 History of Present illness Narrative Patient verified by last name and date of . Images from the original note were not included. 07/13/2024 Renetta Herrera (: 1970) is a 53 y.o. female , Established patient, here for evaluation of the following chief complaint(s): Hypothyroidism, Hyperlipidemia, Diabetes, Medication Check (6 month), and Health Maintenance (Hep b vaccine- refuse/Shingles vaccine- refuse/Eye exam- not done/Pcv 20 vaccine- refuse/Pap/shashank- pt will sched/Dental exam- [facility] in [place] 05/2024/ covid vaccines- not done/Flu vaccine- refuse) ASSESSMENT/PLAN: 1. Type 2 diabetes mellitus without complication, with long-term current use of insulin ([facility] ([facility]) Assessment & Plan: Controlled, last A1c was 6.3 at endocrinology continue Mounjaro 5 mg, Tresiba 16 units nightly and glimepiride 8 mg daily and Jardiance 25 mg daily 2. Hypothyroidism, postop Assessment & Plan: Stable, continue levothyroxine 150 mcg 3. Pure hypercholesterolemia Assessment & Plan: Controlled, continue atorvastatin 20 mg daily Follow up in about 6 months (around 01/10/2025). SUBJECTIVE/OBJECTIVE: REGINALD Delgadillo comes in today for a 6-month follow-up on her diabetes for which she also sees endocrinology Dr. Soto in [place] and she said she just recently had a A1c that was 6.3 and it is in her chart in the endocrinology note. She also is here for follow-up on her hypothyroidism which is stable she does see endocrinology for that also and her hyperlipidemia. Review of Systems Constitutional: Negative for chills and fever. Respiratory: Negative for shortness of breath. Cardiovascular: Negative for chest pain and palpitations. Gastrointestinal: Negative for abdominal pain, blood in stool, constipation and diarrhea. Genitourinary: Negative for dyspareunia, dysuria, frequency, hematuria and urgency. Neurological: Negative for weakness and numbness. Psychiatric/Behavioral: Negative for dysphoric mood. The patient is not nervous/anxious. Vitals: 07/13/24 1050 BP: 112/75 Pulse: 80 SpO2: 98% Weight: 258 lb 3.2 oz (117 kg) Height: 5' 5 (1.651 m) Physical Exam Vitals and nursing note reviewed. Constitutional: General: She is not in acute distress. Appearance: Normal appearance. HENT: Head: Normocephalic. Right Ear: Tympanic membrane, ear canal and external ear normal. Left Ear: Tympanic membrane, ear canal and external ear normal. Mouth/Throat: Mouth: Mucous membranes are moist. Pharynx: Oropharynx is clear. Eyes: Extraocular Movements: Extraocular movements intact. Pupils: Pupils are equal, round, and reactive to light. Neck: Thyroid: No thyromegaly. Vascular: No carotid bruit. Cardiovascular: Rate and Rhythm: Normal rate and regular rhythm. Heart sounds: Normal heart sounds. No murmur heard. Pulmonary: Effort: Pulmonary effort is normal. Breath sounds: Normal breath sounds. Abdominal: General: Bowel sounds are normal. Palpations: Abdomen is soft. Musculoskeletal: General: Normal range of motion. Cervical back: Normal range of motion. Lymphadenopathy: Cervical: No cervical adenopathy. Skin: General: Skin is warm and dry. Neurological: General: No focal deficit present. Mental Status: She is alert and oriented to person, place, and time. Psychiatric: Mood and Affect: Mood normal. An electronic signature was used to authenticate this note. Wong Carpenter MD 07/13/2024 11:18 AM documented in this encounter [facility] 05-27-2024 Telephone encounter Note Prescription Request: Last medication check: 06/07/2023 Last physical exam: 12/17/2023 Next scheduled appointment: 06/16/2024 Last date of refill on this medication: 02/03/24 [facility] 05-27-2024 Miscellaneous Notes Prescription Request: Last medication check: 06/07/2023 Last physical exam: 12/17/2023 Next scheduled appointment: 06/16/2024 Last date of refill on this medication: 02/03/24 documented in this encounter [facility] 05-18-2024 Telephone encounter Note Reviewed chart. Refill appropriate. RX sent. [facility] 05-18-2024 Miscellaneous Notes Reviewed chart. Refill appropriate. RX sent. Prescription Request: Last medication check: 06/07/2023 Last physical exam: 12/17/2023 Next scheduled appointment: 06/16/2024 Last date of refill on this medication: 09/17/2023 documented in this encounter [facility] 05-18-2024 Telephone encounter Note Prescription Request: Last medication check: 06/07/2023 Last physical exam: 12/17/2023 Next scheduled appointment: 06/16/2024 Last date of refill on this medication: 09/17/2023 [facility] 01-21-2024 Telephone encounter Note ---- Message from Wong Carpenter MD sent at 01/17/2024 5:40 AM EDT ----- TSH has increased slightly with the increase in her thyroid medicine, would recommend increasing to 150 mcg and recheck in 4 weeks. Left a message to return call. Directions for CAC in the event patient calls back: If the patient is agreeable, please: 1. Verify what pharmacy RX will be sent to. 2. Schedule patient for nurse visit to repeat labs in 4 weeks. 3. Route this TE back to the office clinical pool so we can place lab orders and send in rx. Thanks! TSH order pended, new med dose pended. [facility] 01-21-2024 Miscellaneous Notes ---- Message from Wong Carpenter MD sent at 01/17/2024 5:40 AM EDT ----- TSH has increased slightly with the increase in her thyroid medicine, would recommend increasing to 150 mcg and recheck in 4 weeks. Left a message to return call. Directions for CAC in the event patient calls back: If the patient is agreeable, please: 1. Verify what pharmacy RX will be sent to. 2. Schedule patient for nurse visit to repeat labs in 4 weeks. 3. Route this TE back to the office clinical pool so we can place lab orders and send in rx. Thanks! TSH order pended, new med dose pended. ----- Message from Wong Carpenter MD sent at 01/17/2024 5:40 AM EDT ----- TSH has increased slightly with the increase in her thyroid medicine, would recommend increasing to 150 mcg and recheck in 4 weeks. Left a message to return call. Directions for CAC in the event patient calls back: If the patient is agreeable, please: 1. Verify what pharmacy RX will be sent to. 2. Schedule patient for nurse visit to repeat labs in 4 weeks. 3. Route this TE back to the office clinical pool so we can place lab orders and send in rx. Thanks! TSH order pended, new med dose pended. ----- Message from Wong Carpenter MD sent at 01/17/2024 5:40 AM EDT ----- TSH has increased slightly with the increase in her thyroid medicine, would recommend increasing to 150 mcg and recheck in 4 weeks. Left a message to return call. documented in this encounter [facility] [employer] 01-20-2024 Telephone encounter Note ----- Message from Wong Carpenter MD sent at 01/17/2024 5:40 AM EDT ----- TSH has increased slightly with the increase in her thyroid medicine, would recommend increasing to 150 mcg and recheck in 4 weeks. Left a message to return call. Directions for CAC in the event patient calls back: If the patient is agreeable, please: 1. Verify what pharmacy RX will be sent to. 2. Schedule patient for nurse visit to repeat labs in 4 weeks. 3. Route this TE back to the office clinical pool so we can place lab orders and send in rx. Thanks! TSH order pended, new med dose pended. [facility] 01-20-2024 Telephone encounter Note ----- Message from Wong Carpenter MD sent at 01/17/2024 5:40 AM EDT ----- TSH has increased slightly with the increase in her thyroid medicine, would recommend increasing to 150 mcg and recheck in 4 weeks. Left a message to return call. [facility] 12-17-2023 Evaluation + Plan note Associated Problem(s): Hyperlipidemia Controlled, continue atorvastatin 20 mg daily [facility] 12-17-2023 Evaluation + Plan note Associated Problem(s): Tobacco use Continues to smoke just a few cigarettes a day discussed stopping smoking and at this time she does not give any good indication she is ready to quit completely. [facility] 12-17-2023 Evaluation + Plan note Associated Problem(s): Hypothyroidism, postop Controlled, continue levothyroxine 112 mcg daily [facility] 12-17-2023 Miscellaneous Notes Associated Problem(s): Hyperlipidemia Controlled, continue atorvastatin 20 mg daily Associated Problem(s): Tobacco use Continues to smoke just a few cigarettes a day discussed stopping smoking and at this time she does not give any good indication she is ready to quit completely. Associated Problem(s): Hypothyroidism, postop Controlled, continue levothyroxine 112 mcg daily Associated Problem(s): Morbid obesity (HCC) She has lost 8 pounds encouraged her to continue with strict diet and exercise. Associated Problem(s): Type 2 diabetes mellitus without complication, with long-term current use of insulin (CMS/HCC) (HCC) Controlled, she is seeing an manpower development specialist manager who is prescribing her medications we will get blood work today and we can forward that to her manpower development specialist manager. Continue glimepiride, Jardiance, Tresiba, Trulicity documented in this encounter [facility] 12-17-2023 Evaluation + Plan note Associated Problem(s): Morbid obesity (HCC) She has lost 8 pounds encouraged her to continue with strict diet and exercise. [facility] 12-17-2023 Evaluation + Plan note Associated Problem(s): Type 2 diabetes mellitus without complication, with long-term current use of insulin (CMS/HCC) (HCC) Controlled, she is seeing an manpower development specialist manager who is prescribing her medications we will get blood work today and we can forward that to her manpower development specialist manager. Continue glimepiride, Tamela Evans Trulicity [facility] 12-17-2023 History of Present illness Narrative Patient verified by last name and date of . Images from the original note were not included. 12/17/2023 Renetta Herrera (: 1970) is a 53 y.o. female , Established patient, here for evaluation of the following chief complaint(s): Annual Exam, Blood Work, and Health Maintenance (Eye exam- not done pt will call to sched /Dental exam- Dr Donald in [place] will send for record /Flu vaccine- refuse/4th covid vaccine- not done/Pap- Dr Morales in [place] will send for record ) ASSESSMENT/PLAN: 1. Annual physical exam 2. Hypothyroidism, postop Assessment & Plan: Controlled, continue levothyroxine 112 mcg daily Orders: - TSH 3. Pure hypercholesterolemia Assessment & Plan: Controlled, continue atorvastatin 20 mg daily Orders: - Lipid panel 4. Morbid obesity (HCC) Assessment & Plan: She has lost 8 pounds encouraged her to continue with strict diet and exercise. 5. Tobacco use Assessment & Plan: Continues to smoke just a few cigarettes a day discussed stopping smoking and at this time she does not give any good indication she is ready to quit completely. 6. Type 2 diabetes mellitus without complication, with long-term current use of insulin ([facility]/HCC) (HCC) Assessment & Plan: Controlled, she is seeing an manpower development specialist manager who is prescribing her medications we will get blood work today and we can forward that to her manpower development specialist manager. Continue glimepiride, Carmelodilucy Tresiba, Trulicity Orders: - Comprehensive metabolic panel - Microalbumin / creatinine urine ratio - Hemoglobin A1c - Diabetes Foot Exam Follow up in about 6 months (around 06/16/2024). SUBJECTIVE/OBJECTIVE: HPI -Lisa comes in today for her annual exam, is also here for follow-up on her hypothyroidism, hypercholesterolemia, diabetes and obesity and obesity. She says she is down to just a few cigarettes a day and I offered to give her some help in any way I can. She has no other complaints today, see ROS. Review of Systems Constitutional: Negative for chills and fever. Respiratory: Negative for shortness of breath. Cardiovascular: Negative for chest pain and palpitations. Gastrointestinal: Negative for abdominal pain, blood in stool, constipation and diarrhea. Genitourinary: Negative for dyspareunia, dysuria, frequency, hematuria and urgency. Neurological: Negative for weakness and numbness. Psychiatric/Behavioral: Negative for dysphoric mood. The patient is not nervous/anxious. Vitals: 12/17/23 1316 BP: 118/77 Pulse: 75 SpO2: 98% Weight: 257 lb 12.8 oz (117 kg) Height: 5' 5 (1.651 m) Physical Exam Vitals and nursing note reviewed. Constitutional: General: She is not in acute distress. Appearance: Normal appearance. HENT: Head: Normocephalic. Right Ear: Tympanic membrane, ear canal and external ear normal. Left Ear: Tympanic membrane, ear canal and external ear normal. Mouth/Throat: Mouth: Mucous membranes are moist. Pharynx: Oropharynx is clear. Eyes: Extraocular Movements: Extraocular movements intact. Pupils: Pupils are equal, round, and reactive to light. Neck: Vascular: No carotid bruit. Cardiovascular: Rate and Rhythm: Normal rate and regular rhythm. Heart sounds: Normal heart sounds. No murmur heard. Pulmonary: Effort: Pulmonary effort is normal. Breath sounds: Normal breath sounds. Abdominal: General: Bowel sounds are normal. Palpations: Abdomen is soft. Musculoskeletal: General: Normal range of motion. Cervical back: Normal range of motion. Lymphadenopathy: Cervical: No cervical adenopathy. Skin: General: Skin is warm and dry. Neurological: General: No focal deficit present. Mental Status: She is alert and oriented to person, place, and time. Comments: Diabetic foot check: Normal strength and range of motion of toes, feet, and ankles bilaterally. No joint deformity. No cyanosis or clubbing. 100% sensation with 10 gram filament. Dorsalis pedis pulses intact bilaterally. Capillary refill at the toes was less than 2 seconds. Light touch sensation intact bilaterally. Hair growth present on feet and toes bilaterally. No skin breakdown, erythema, rub spots, blisters, scaling, or ulcers. No calluses or corns. Toenails thin and not ingrown. No evidence of fungal infection. Psychiatric: Mood and Affect: Mood normal. An electronic signature was used to authenticate this note. Wong Carpenter MD 12/17/2023 1:48 PM documented in this encounter [facility] 09-17-2023 Telephone encounter Note Reviewed chart. Refill appropriate. RX sent. [facility] 09-17-2023 Miscellaneous Notes Reviewed chart. Refill appropriate. RX sent. Yes that is correct, updated, thanks! Prescription Request: Last medication check: 06/07/23 Last physical exam: 11/30/22 Next scheduled appointment: 12/13/23 Last date of refill on this medication atorvastatin 05/30/23, levothyroxine 07/10/2023 documented in this encounter [facility] 09-17-2023 Telephone encounter Note Yes that is correct, updated, thanks! [facility] 09-17-2023 Telephone encounter Note Prescription Request: Last medication check: 06/07/23 Last physical exam: 11/30/22 Next scheduled appointment: 12/13/23 Last date of refill on this medication atorvastatin 05/30/23, levothyroxine 07/10/2023 [facility] 06-07-2023 Evaluation + Plan note Associated Problem(s): Hypothyroidism, postop Stable, continue levothyroxine 150 mcg, check TSH today. [facility] 06-07-2023 Miscellaneous Notes Associated Problem(s): Hypothyroidism, postop Stable, continue levothyroxine 150 mcg, check TSH today. documented in this encounter [facility] 06-07-2023 History of Present illness Narrative Patient verified by last name and date of . Images from the original note were not included. 06/07/2023 Renetta Herrera (: 1970) is a 52 y.o. female , Established patient, here for evaluation of the following chief complaint(s): 6 Month Follow-up (Medicine Check), Diabetes, Hyperlipidemia, Hypothyroidism, and Health Maintenance (Scheduled for DM eye exam with Dr. Hartman/Declines Hep C/HIV screenings/Declines MMR, Hep B, shingrix, or PCV/Only had 3 COVID vaccines, did not get the 4th) ASSESSMENT/PLAN: 1. Hypothyroidism, postop Assessment & Plan: Stable, continue levothyroxine 150 mcg, check TSH today. Orders: - TSH Follow up in about 6 months (around 12/08/2023). SUBJECTIVE/OBJECTIVE: HPI -Lisa comes in today for follow-up on her hypothyroidism, last November we adjusted her thyroid medication and that came back fine the next month however since it has been 6 months it is time to recheck her level. She has no complaints she is seeing an manpower development specialist manager for her diabetes and she said that the last time she was in there were unable to do her A1c but they were happy with her numbers. Review of Systems Constitutional: Negative for chills and fever. Respiratory: Negative for shortness of breath. Cardiovascular: Negative for chest pain and palpitations. Gastrointestinal: Negative for abdominal pain, blood in stool, constipation and diarrhea. Genitourinary: Negative for dyspareunia, dysuria, frequency, hematuria and urgency. Neurological: Negative for weakness and numbness. Psychiatric/Behavioral: Negative for dysphoric mood. The patient is not nervous/anxious. Vitals: 06/07/23 1120 BP: 116/80 Pulse: 74 SpO2: 96% Weight: 266 lb 12.8 oz (121 kg) Height: 5' 5 (1.651 m) Physical Exam Vitals and nursing note reviewed. Constitutional: General: She is not in acute distress. Appearance: Normal appearance. HENT: Head: Normocephalic and atraumatic. Mouth/Throat: Mouth: Mucous membranes are moist. Pharynx: Oropharynx is clear. Eyes: Extraocular Movements: Extraocular movements intact. Pupils: Pupils are equal, round, and reactive to light. Cardiovascular: Rate and Rhythm: Normal rate and regular rhythm. Heart sounds: Normal heart sounds. No murmur heard. Pulmonary: Effort: Pulmonary effort is normal. Breath sounds: Normal breath sounds. Musculoskeletal: Cervical back: Neck supple. Lymphadenopathy: Cervical: No cervical adenopathy. Neurological: Mental Status: She is alert. An electronic signature was used to authenticate this note. Wong Carpenter MD 06/07/2023 11:46 AM documented in this encounter [facility] 05-16-2023 History and physical note Images from the original note were not included. General Surgery History and Physical Michelet Calvert MD Patient ID: Renetta Herrera [id number] 52 y.o. 1970 CHIEF COMPLAINT: No chief complaint on file. HPI: Renetta Herrera is a 52 y.o. female who presents with need for screening colonoscopy. The patient denies symptoms including nausea, emesis, fever, chills, diarrhea, constipation, melena, bright red blood per rectum and abdominal pain. The patient has not had a prior colonoscopy. The patient has a family history of colon cancer in two maternal uncles. Her mother of ovarian cancer. Surgical history is significant for no prior abdominal surgeries. Blood thinning medications include none. Past Medical History: Diagnosis Date Hyperthyroidism Type 2 diabetes mellitus without complication (CMS/HCC) (HCC) Past Surgical History: Procedure Laterality Date ABDOMINAL SURGERY BREAST SURGERY SECTION, CLASSIC COLONOSCOPY N/A 05/16/2023 Performed by Michelet Calvert MD at [facility] ENDOSCOPY THYROIDECTOMY, COMPLETION (HISTORICAL) 06/2016 TONSILLECTOMY (HISTORICAL) Medications Prior to Visit: Current Outpatient Medications Medication Instructions atorvastatin (LIPITOR) 20 mg, Oral, Daily BD Pen Needle Gloria 2nd Gen 32G X 4 MM misc USE DIRECTED ONCE DAILY glimepiride (Amaryl) 4 MG tablet TAKE 2 TABLETS BY MOUTH EVERY MORNING (BEFORE BREAKFAST) glucose blood (Accu-Chek Lauren Plus) test strip USE TO TEST BLOODSUGAR TWICE A DAY Jardiance 25 mg, Oral, Daily levothyroxine (SYNTHROID, LEVOXYL) 150 mcg, Oral, Daily before breakfast spironolactone (Aldactone) 100 MG tablet TAKE 1 TABLET BY MOUTH TWICE A DAY Tresiba FlexTouch 100 UNIT/ML injection INJECT 20 UNITS SUBCUTANEOUSLY EVERY NIGHT AT BEDTIME Trulicity 0.75 MG/0.5ML solution pen-injector No dose, route, or frequency recorded. valACYclovir (Valtrex) 1 g tablet 2 tablets, Oral, 2 times daily Allergies: Metformin Social History Socioeconomic History Marital status: Tobacco Use Smoking status: Every Day Packs/day: 0.25 Types: Cigarettes Start date: 1986 Smokeless tobacco: Never Vaping Use Vaping Use: Never used Substance and Sexual Activity Alcohol use: Yes Comment: rarely Drug use: No Social Determinants of Health Financial Resource Strain: Low Risk (11/29/2022) Overall Financial Resource Strain (CARDIA) Difficulty of Paying Living Expenses: Not hard at all Transportation Needs: No Transportation Needs (11/29/2022) PRAPARE - Transportation Lack of Transportation (Medical): No Lack of Transportation (Non-Medical): No Family History Problem Relation Name Age of Onset No Known Problems Father Cancer Maternal Grandfather lung No Known Problems Paternal Grandmother Heart disease Maternal Grandmother No Known Problems Sister Cancer Mother uterine No Known Problems Paternal Grandfather Review of Systems: Review of Systems All other systems reviewed and are negative. Physical Exam: BP 133/78 Pulse 85 Temp 36.9 C (98.4 F) (Temporal) Resp 18 Ht 5' 5 (1.651 m) Wt 260 lb (118 kg) SpO2 98% BMI 43.27 kg/m Physical Exam Constitutional: General: She is not in acute distress. Appearance: She is not ill-appearing. HENT: Nose: No congestion or rhinorrhea. Eyes: General: No scleral icterus. Conjunctiva/sclera: Conjunctivae normal. Cardiovascular: Rate and Rhythm: Normal rate and regular rhythm. Pulmonary: Effort: No respiratory distress. Breath sounds: No wheezing. Abdominal: General: There is no distension. Palpations: Abdomen is soft. Tenderness: There is no abdominal tenderness. Musculoskeletal: General: No swelling or tenderness. Skin: General: Skin is warm. Coloration: Skin is not jaundiced. Neurological: General: No focal deficit present. Mental Status: She is oriented to person, place, and time. Psychiatric: Mood and Affect: Mood normal. Thought Content: Thought content normal. Orders Placed This Encounter Procedures NPO diet NPO except: Sips of Water with Meds NPO diet NPO except: Sips of Water with Meds Verify informed consent Verify pre-procedure history and physical completed Verify modification of diabetic agents Verify lab results available Verify surgical site confirmation documentation completed Verify discontinuation of anticoagulants/antiplatelets unless otherwise specified by physician Verify completion of bowel prep Full Code Place in outpatient/hospital ambulatory surgery Impression/Treatment Plan: Renetta Herrera is a 52 y.o. female with need for screening colonoscopy Patient counseled on risks, benefits, and alternatives of treatment plan at length while in the office today. Patient states an understandingand willingness to proceed with plan. Michelet Calvert MD 05/16/2023 9:03 AM [employer] Phone: 05-16-2023 History and physical note Images from the original note were not included. General Surgery History and Physical Michelet Calvert MD Patient ID: Renetta Herrera [id number] 52 y.o. 1970 CHIEF COMPLAINT: No chief complaint on file. HPI: Renetta Herrera is a 52 y.o. female who presents with need for screening colonoscopy. The patient denies symptoms including nausea, emesis, fever, chills, diarrhea, constipation, melena, bright red blood per rectum and abdominal pain. The patient has not had a prior colonoscopy. The patient has a family history of colon cancer in two maternal uncles. Her mother of ovarian cancer. Surgical history is significant for no prior abdominal surgeries. Blood thinning medications include none. Past Medical History: Diagnosis Date Hyperthyroidism Type 2 diabetes mellitus without complication (CMS/HCC) (HCC) Past Surgical History: Procedure Laterality Date ABDOMINAL SURGERY BREAST SURGERY SECTION, CLASSIC COLONOSCOPY N/A 05/16/2023 Performed by Michelet Calvert MD at [facility] ENDOSCOPY THYROIDECTOMY, COMPLETION (HISTORICAL) 06/2016 TONSILLECTOMY (HISTORICAL) Medications Prior to Visit: Current Outpatient Medications Medication Instructions atorvastatin (LIPITOR) 20 mg, Oral, Daily BD Pen Needle Gloria 2nd Gen 32G X 4 MM misc USE DIRECTED ONCE DAILY glimepiride (Amaryl) 4 MG tablet TAKE 2 TABLETS BY MOUTH EVERY MORNING (BEFORE BREAKFAST) glucose blood (Accu-Chek Lauren Plus) test strip USE TO TEST BLOODSUGAR TWICE A DAY Jardiance 25 mg, Oral, Daily levothyroxine (SYNTHROID, LEVOXYL) 150 mcg, Oral, Daily before breakfast spironolactone (Aldactone) 100 MG tablet TAKE 1 TABLET BY MOUTH TWICE A DAY Tresiba FlexTouch 100 UNIT/ML injection INJECT 20 UNITS SUBCUTANEOUSLY EVERY NIGHT AT BEDTIME Trulicity 0.75 MG/0.5ML solution pen-injector No dose, route, or frequency recorded. valACYclovir (Valtrex) 1 g tablet 2 tablets, Oral, 2 times daily Allergies: Metformin Social History Socioeconomic History Marital status: Tobacco Use Smoking status: Every Day Packs/day: 0.25 Types: Cigarettes Start date: 1986 Smokeless tobacco: Never Vaping Use Vaping Use: Never used Substance and Sexual Activity Alcohol use: Yes Comment: rarely Drug use: No Social Determinants of Health Financial Resource Strain: Low Risk (11/29/2022) Overall Financial Resource Strain (CARDIA) Difficulty of Paying Living Expenses: Not hard at all Transportation Needs: No Transportation Needs (11/29/2022) PRAPARE - Transportation Lack of Transportation (Medical): No Lack of Transportation (Non-Medical): No Family History Problem Relation Name Age of Onset No Known Problems Father Cancer Maternal Grandfather lung No Known Problems Paternal Grandmother Heart disease Maternal Grandmother No Known Problems Sister Cancer Mother uterine No Known Problems Paternal Grandfather Review of Systems: Review of Systems All other systems reviewed and are negative. Physical Exam: BP 133/78 Pulse 85 Temp 36.9 C (98.4 F) (Temporal) Resp 18 Ht 5' 5 (1.651 m) Wt 260 lb (118 kg) SpO2 98% BMI 43.27 kg/m Physical Exam Constitutional: General: She is not in acute distress. Appearance: She is not ill-appearing. HENT: Nose: No congestion or rhinorrhea. Eyes: General: No scleral icterus. Conjunctiva/sclera: Conjunctivae normal. Cardiovascular: Rate and Rhythm: Normal rate and regular rhythm. Pulmonary: Effort: No respiratory distress. Breath sounds: No wheezing. Abdominal: General: There is no distension. Palpations: Abdomen is soft. Tenderness: There is no abdominal tenderness. Musculoskeletal: General: No swelling or tenderness. Skin: General: Skin is warm. Coloration: Skin is not jaundiced. Neurological: General: No focal deficit present. Mental Status: She is oriented to person, place, and time. Psychiatric: Mood and Affect: Mood normal. Thought Content: Thought content normal. Orders Placed This Encounter Procedures NPO diet NPO except: Sips of Water with Meds NPO diet NPO except: Sips of Water with Meds Verify informed consent Verify pre-procedure history and physical completed Verify modification of diabetic agents Verify lab results available Verify surgical site confirmation documentation completed Verify discontinuation of anticoagulants/antiplatelets unless otherwise specified by physician Verify completion of bowel prep Full Code Place in outpatient/hospital ambulatory surgery Impression/Treatment Plan: Renetta Herrera is a 52 y.o. female with need for screening colonoscopy Patient counseled on risks, benefits, and alternatives of treatment plan at length while in the office today. Patient states an understandingand willingness to proceed with plan. Michelet Calvert MD 05/16/2023 9:03 AM documented in this encounter [facility] 05-16-2023 Note Formatting of this n ote might be different from the original. [facility] Ren[facility] Her[facility] Procedure Date: 05/16/2023 8:58 AM Gender: Female Date of : 1970 Age: 52 Admit Type: Outpatient Note Status: Finalized Endoscopist: Michelet Calvert MD, [id number] Procedure: Colonoscopy Indications: Screening for colon cancer: Family history of colorectal cancer in multiple 2nd degree relatives Findings: The perianal and digital rectal examinations were normal. Pertinent negatives include normal sphincter tone. The perianal and digital rectal examinations were normal. Pertinent negatives include no palpable rectal lesions. The exam was otherwise normal throughout the examined colon. Impression: - No specimens collected. Recommendation: - Patient has a contact number available for emergencies. The signs and symptoms of potential delayed complications were discussed with the patient. Return to normal activities tomorrow. Written discharge instructions were provided to the patient. - Continue present medications. - Resume previous diet. - Repeat colonoscopy in 5-10 years for screening purposes. Referring MD: Wong Carpenter MD Medicines: Monitored Anesthesia Care Procedure: Pre-Anesthesia Assessment: - Prior to the procedure, a History and Physical was performed, and patient medications and allergies were reviewed. The patient's tolerance of previous anesthesia was also reviewed. The risks and benefits of the procedure and the sedation options and risks were discussed with the patient. All questions were answered, and informed consent was obtained. Prior Anticoagulants: The patient has taken no anticoagulant or antiplatelet agents. ASA Grade Assessment: II - A patient with mild systemic disease. After reviewing the risks and benefits, the patient was deemed in satisfactory condition to undergo the procedure. - The anesthesia plan was to use monitored anesthesia care (MAC). After I obtained informed consent, the scope was passed under direct vision. Throughout the procedure, the patient's blood pressure, pulse, and oxygen saturations were monitored continuously. The Colonoscope was introduced through the anus and advanced to the terminal ileum, with identification of the appendiceal orifice and IC valve. The colonoscopy was performed without difficulty. The patient tolerated the procedure well. The quality of the bowel preparation was good. The ileocecal valve, appendiceal orifice, and rectum were photographed. The entire colon was examined. Complications: No immediate complications. Procedure Code(s): --- Professional --- 71425, Colonoscopy, flexible; diagnostic, including collection of specimen(s) by brushing or washing, when performed (separate procedure) --- Technical --- 08812, Colonoscopy, flexible; diagnostic, including collection of specimen(s) by brushing or washing, when performed (separate procedure) Diagnosis Code(s): --- Professional --- Z80.0, Family history of malignant neoplasm of digestive organs --- Technical --- Z80.0, Family history of malignant neoplasm of digestive organs CPT copyright 2021 [employer]. All rights reserved. The codes documented in this report are preliminary and upon stone splitter review may be revised to meet current compliance requirements. Attending Participation: I personally performed the entire procedure. Michelet Calvert MD 05/16/2023 9:38:18 AM This report has been signed electronically. Number of Addenda: 0 Note Initiated On: 05/16/2023 8:58 AM [facility] 05-16-2023 Note Formatting of this n ote might be different from the original. [facility] Name: Renetta Herrera Procedure Date: 05/16/2023 8:58 AM Gender: Female Date of : 1970 Age: 52 Admit Type: Outpatient Note Status: Finalized Endoscopist: Michelet Calvert MD, [id number] Procedure: Colonoscopy Indications: Screening for colon cancer: Family history of colorectal cancer in multiple 2nd degree relatives Findings: The perianal and digital rectal examinations were normal. Pertinent negatives include normal sphincter tone. The perianal and digital rectal examinations were normal. Pertinent negatives include no palpable rectal lesions. The exam was otherwise normal throughout the examined colon. Impression: - No specimens collected. Recommendation: - Patient has a contact number available for emergencies. The signs and symptoms of potential delayed complications were discussed with the patient. Return to normal activities tomorrow. Written discharge instructions were provided to the patient. - Continue present medications. - Resume previous diet. - Repeat colonoscopy in 5-10 years for screening purposes. Referring MD: Wong Carpenter MD Medicines: Monitored Anesthesia Care Procedure: Pre-Anesthesia Assessment: - Prior to the procedure, a History and Physical was performed, and patient medications and allergies were reviewed. The patient's tolerance of previous anesthesia was also reviewed. The risks and benefits of the procedure and the sedation options and risks were discussed with the patient. All questions were answered, and informed consent was obtained. Prior Anticoagulants: The patient has taken no anticoagulant or antiplatelet agents. ASA Grade Assessment: II - A patient with mild systemic disease. After reviewing the risks and benefits, the patient was deemed in satisfactory condition to undergo the procedure. - The anesthesia plan was to use monitored anesthesia care (MAC). After I obtained informed consent, the scope was passed under direct vision. Throughout the procedure, the patient's blood pressure, pulse, and oxygen saturations were monitored continuously. The Colonoscope was introduced through the anus and advanced to the terminal ileum, with identification of the appendiceal orifice and IC valve. The colonoscopy was performed without difficulty. The patient tolerated the procedure well. The quality of the bowel preparation was good. The ileocecal valve, appendiceal orifice, and rectum were photographed. The entire colon was examined. Complications: No immediate complications. Procedure Code(s): --- Professional --- 51162, Colonoscopy, flexible; diagnostic, including collection of specimen(s) by brushing or washing, when performed (separate procedure) --- Technical --- 86088, Colonoscopy, flexible; diagnostic, including collection of specimen(s) by brushing or washing, when performed (separate procedure) Diagnosis Code(s): --- Professional --- Z80.0, Family history of malignant neoplasm of digestive organs --- Technical --- Z80.0, Family history of malignant neoplasm of digestive organs CPT copyright 2021 [employer]. All rights reserved. The codes documented in this report are preliminary and upon stone splitter review may be revised to meet current compliance requirements. Attending Participation: I personally performed the entire procedure. Michelet Calvert MD 05/16/2023 9:38:18 AM This report has been signed electronically. Number of Addenda: 0 Note Initiated On: 05/16/2023 8:58 AM [facility] 05[facility]16[facility]2023 [facility]: Renetta Herrera Procedure Date: 05/16/2023 8:58 AM Gender: Female Date of : 1970 Age: 52 Admit Type: Outpatient Note Status: Finalized Endoscopist: Michelet Calvert MD, [id number] Procedure: Colonoscopy Indications: Screening for colon cancer: Family history of colorectal cancer in multiple 2nd degree relatives Findings: The perianal and digital rectal examinations were normal. Pertinent negatives include normal sphincter tone. The perianal and digital rectal examinations were normal. Pertinent negatives include no palpable rectal lesions. The exam was otherwise normal throughout the examined colon. Impression: - No specimens collected. Recommendation: - Patient has a contact number available for emergencies. The signs and symptoms of potential delayed complications were discussed with the patient. Return to normal activities tomorrow. Written discharge instructions were provided to the patient. - Continue present medications. - Resume previous diet. - Repeat colonoscopy in 5-10 years for screening purposes. Referring MD: Wong Carpenter MD Medicines: Monitored Anesthesia Care Procedure: Pre-Anesthesia Assessment: - Prior to the procedure, a History and Physical was performed, and patient medications and allergies were reviewed. The patient's tolerance of previous anesthesia was also reviewed. The risks and benefits of the procedure and the sedation options and risks were discussed with the patient. All questions were answered, and informed consent was obtained. Prior Anticoagulants: The patient has taken no anticoagulant or antiplatelet agents. ASA Grade Assessment: II - A patient with mild systemic disease. After reviewing the risks and benefits, the patient was deemed in satisfactory condition to undergo the procedure. - The anesthesia plan was to use monitored anesthesia care (MAC). After I obtained informed consent, the scope was passed under direct vision. Throughout the procedure, the patient's blood pressure, pulse, and oxygen saturations were monitored continuously. The Colonoscope was introduced through the anus and advanced to the terminal ileum, with identification of the appendiceal orifice and IC valve. The colonoscopy was performed without difficulty. The patient tolerated the procedure well. The quality of the bowel preparation was good. The ileocecal valve, appendiceal orifice, and rectum were photographed. The entire colon was examined. Complications: No immediate complications. Procedure Code(s): --- Professional --- 45272, Colonoscopy, flexible; diagnostic, including collection of specimen(s) by brushing or washing, when performed (separate procedure) --- Technical --- 69124, Colonoscopy, flexible; diagnostic, including collection of specimen(s) by brushing or washing, when performed (separate procedure) Diagnosis Code(s): --- Professional --- Z80.0, Family history of malignant neoplasm of digestive organs --- Technical --- Z80.0, Family history of malignant neoplasm of digestive organs CPT copyright 2021 [employer]. All rights reserved. The codes documented in this report are preliminary and upon stone splitter review may be revised to meet current compliance requirements. Attending Participation: I personally performed the entire procedure. Michelet Calvert MD 05/16/2023 9:38:18 AM This report has been signed electronically. Number of Addenda: 0 Note Initiated On: 05/16/2023 8:58 AM documented in this encounter [facility] 04-18-2023 Telephone encounter Note Last appointment 11/30/22, Next appointment is 06/07/23 Last filled 12/06/22 Dispensed: 180 Refills: 0 [facility] 04-18-2023 Miscellaneous Notes Last appointment 11/30/22, Next appointment is 06/07/23 Last filled 12/06/22 Dispensed: 180 Refills: 0 documented in this encounter [facility] 04-05-2023 Telephone encounter Note Prescription Request: Last medication check: 05/28/22 Last physical exam: 11/30/22 Next scheduled appointment: 06/07/23 Last date of refill on this medication 01/18/[address] [facility] 04-05-2023 Miscellaneous Notes Prescription Request: Last medication check: 05/28/22 Last physical exam: 11/30/22 Next scheduled appointment: 06/07/23 Last date of refill on this medication 01/18/23 90 day 1 refill documented in this encounter [facility] 12-06-2022 Telephone encounter Note Reviewed chart. Refill appropriate. RX sent. [facility] 12-06-2022 Miscellaneous Notes Reviewed chart. Refill appropriate. RX sent. Prescription Request: Last medication check: 05/28/22 Last physical exam: 11/30/22 Next scheduled appointment: 06/07/23 CSA on file (date): na Last urine drug screen: na Last date of refill on this medication 09/10/22 90 day no refill documented in this encounter [facility] 12-06-2022 Telephone encounter Note Prescription Request: Last medication check: 05/28/22 Last physical exam: 11/30/22 Next scheduled appointment: 06/07/23 CSA on file (date): na Last urine drug screen: na Last date of refill on this medication 09/10/[address] [facility] 11-30-2022 Evaluation + Plan note Associated Problem(s): Tobacco use Discussed smoking cessation. [facility] 11-30-2022 Evaluation + Plan note Associated Problem(s): Hyperlipidemia Controlled, continue atorvastatin [address] [facility] 11-30-2022 Evaluation + Plan note Associated Problem(s): Hypothyroidism, postop Stable, continue levothyroxine [address] [facility] 11-30-2022 Miscellaneous Notes Associated Problem(s): Tobacco use Discussed smoking cessation. Associated Problem(s): Hyperlipidemia Controlled, continue atorvastatin 20 mg daily Associated Problem(s): Hypothyroidism, postop Stable, continue levothyroxine 175 mcg Associated Problem(s): Uncontrolled type 2 diabetes mellitus with hyperglycemia (HCC) Uncontrolled, continue glimepiride 4 mg, Jardiance 25 mg, Trulicity 0.75 mg and Tresiba 20 units at bedtime. Follow-up with endocrinology as scheduled. documented in this encounter [facility] 11-30-2022 Evaluation + Plan note Associated Problem(s): Uncontrolled type 2 diabetes mellitus with hyperglycemia (HCC) Uncontrolled, continue glimepiride 4 mg, Jardiance 25 mg, Trulicity 0.75 mg and Tresiba 20 units at bedtime. Follow-up with endocrinology as scheduled. [facility] 11-30-2022 History of Present illness Narrative Images from the original note were not included. 11/30/2022 Renetta Herrera (: 1970) is a 52 y.o. female , Established patient, here for evaluation of the following chief complaint(s): Annual Exam, Blood Work (TSH, A1c, lipid, CMP, microalbumin), and Health Maintenance (Flu vaccine-declines/Shingrix-declines/ PNA vaccine-declines/Mammogram-needs to take an order to [facility] in [place]/Colonoscopy-would like referral/DM eye exam-yes, Dr. Hartman in [place]) ASSESSMENT/PLAN: 1. Annual physical exam 2. Uncontrolled type 2 diabetes mellitus with hyperglycemia (HCC) Assessment & Plan: Uncontrolled, continue glimepiride 4 mg, Jardiance 25 mg, Trulicity 0.75 mg and Tresiba 20 units at bedtime. Follow-up with endocrinology as scheduled. Orders: - Microalbumin / creatinine urine ratio - Comprehensive metabolic panel - Hemoglobin A1c - Diabetes Foot Exam 3. Hypothyroidism, postop Assessment & Plan: Stable, continue levothyroxine 175 mcg Orders: - TSH 4. Pure hypercholesterolemia Assessment & Plan: Controlled, continue atorvastatin 20 mg daily Orders: - Lipid panel 5. Tobacco use Assessment & Plan: Discussed smoking cessation. 6. Screening for colon cancer - [facility] General Surgery - Michelet Calvert MD 7. Encounter for screening mammogram for malignant neoplasm of breast - Bilateral screening mammogram Follow up in about 6 months (around 05/30/2023). SUBJECTIVE/OBJECTIVE: HPI -Renetta comes in today for an annual exam, she sees CONFIGURATION TECHNICIAN for her Pap tests and she says she is due for another one this year. She is also here for follow-up on her diabetes but she also sees an manpower development specialist manager for that, hypothyroidism, hypercholesterolemia and she does admit she is still smoking. She has no real complaints today, see ROS Review of Systems Constitutional: Negative for chills and fever. Respiratory: Negative for shortness of breath. Cardiovascular: Negative for chest pain and palpitations. Gastrointestinal: Negative for abdominal pain, blood in stool, constipation and diarrhea. Genitourinary: Negative for dyspareunia, dysuria, frequency, hematuria and urgency. Neurological: Negative for weakness and numbness. Psychiatric/Behavioral: Negative for dysphoric mood. The patient is not nervous/anxious. Vitals: 11/30/22 1128 BP: 122/71 Pulse: 76 Weight: 262 lb 12.8 oz (119 kg) Height: 5' 4.75 (1.645 m) Physical Exam Vitals and nursing note reviewed. Constitutional: General: She is not in acute distress. Appearance: Normal appearance. HENT: Head: Normocephalic. Right Ear: Tympanic membrane, ear canal and external ear normal. Left Ear: Tympanic membrane, ear canal and external ear normal. Mouth/Throat: Mouth: Mucous membranes are moist. Pharynx: Oropharynx is clear. Eyes: Extraocular Movements: Extraocular movements intact. Pupils: Pupils are equal, round, and reactive to light. Neck: Vascular: No carotid bruit. Cardiovascular: Rate and Rhythm: Normal rate and regular rhythm. Heart sounds: Normal heart sounds. No murmur heard. Pulmonary: Effort: Pulmonary effort is normal. Breath sounds: Normal breath sounds. Abdominal: General: Bowel sounds are normal. Palpations: Abdomen is soft. Musculoskeletal: General: Normal range of motion. Cervical back: Normal range of motion. Lymphadenopathy: Cervical: No cervical adenopathy. Skin: General: Skin is warm and dry. Neurological: General: No focal deficit present. Mental Status: She is alert and oriented to person, place, and time. Comments: Diabetic foot check: Normal strength and range of motion of toes, feet, and ankles bilaterally. No joint deformity. No cyanosis or clubbing. 100% sensation with 10 gram filament. Dorsalis pedis pulses intact bilaterally. Capillary refill at the toes was less than 2 seconds. Light touch sensation intact bilaterally. Hair growth present on feet and toes bilaterally. No skin breakdown, erythema, rub spots, blisters, scaling, or ulcers. No calluses or corns. Toenails thin and not ingrown. No evidence of fungal infection. Psychiatric: Mood and Affect: Mood normal. An electronic signature was used to authenticate this note. Wong Carpenter MD 12/06/2022 1:02 PM documented in this encounter [facility] Evaluation note Diagnosis Onset Date Diabetes chronic Obesity [facility] Work Phone: Evaluation note* Diagnosis Breast cancer screening, high risk patient- Primary Screening mammogram for high-risk patient documented [facility]* Diagnosis Hypothyroidism, postop- Primary [facility] Diagnosis Annual physical exam- Primary Routine general medical examination at a health care facility Hypothyroidism, postop Pure hypercholesterolemia Morbid obesity (HCC) Morbid obesity Tobacco use Type 2 diabetes mellitus without complication, with long-term current use of insulin (CMS/HCC) (HCC) [facility] Diagnosis Hypothyroidism, postop- Primary [facility] Diagnosis Type 2 diabetes mellitus without complication, with long-term current use of insulin (CMS/HCC) (HCC)- Primary Hypothyroidism, postop Pure hypercholesterolemia [facility] Diagnosis Annual physical exam- Primary Routine general medical examination at a health care facility Uncontrolled type 2 diabetes mellitus with hyperglycemia (HCC) Hypothyroidism, postop Pure hypercholesterolemia Tobacco use Screening for colon cancer Special screening for malignant neoplasms, colon Encounter for screening mammogram for malignant neoplasm of breast Hypothyroidism, postop- Primary Annual physical exam- Primary Routine general medical examination at a health care facility Hypothyroidism, postop Pure hypercholesterolemia Morbid obesity (HCC) Morbid obesity Tobacco use Type 2 diabetes mellitus without complication, with long-term current use of insulin (CMS/HCC) (HCC) Other specified hypothyroidism- Primary Autoimmune thyroiditis Type 2 diabetes mellitus without complication, with long-term current use of insulin (CMS/HCC) (HCC)- Primary Hypothyroidism, postop Pure hypercholesterolemia documented in [facility]* Diagnosis Annual physical exam- Primary Routine general medical examination at a health care facility Uncontrolled type 2 diabetes mellitus with hyperglycemia (HCC) Hypothyroidism, postop Pure hypercholesterolemia Tobacco use Screening for colon cancer Special screening for malignant neoplasms, colon Encounter for screening mammogram for malignant neoplasm of breast [facility] Diagnosis Annual physical exam- Primary Routine general medical examination at a health care facility Uncontrolled type 2 diabetes mellitus with hyperglycemia (HCC) Hypothyroidism, postop Pure hypercholesterolemia Tobacco use Screening for colon cancer Special screening for malignant neoplasms, colon Encounter for screening mammogram for malignant neoplasm of breast Annual physical exam- Primary Routine general medical examination at a health care facility Hypothyroidism, postop Pure hypercholesterolemia Morbid obesity (HCC) Morbid obesity Tobacco use Type 2 diabetes mellitus without complication, with long-term current use of insulin (CMS/HCC) (HCC) Type 2 diabetes mellitus without complication, with long-term current use of insulin (CMS/HCC) (HCC)- Primary Hypothyroidism, postop Pure hypercholesterolemia Type 2 diabetes mellitus without complication, with long-term current use of insulin (CMS/HCC) (HCC)- Primary 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 * Colonoscopy Discharge Instructions (Spanish) * Moderate Sedation in Adults Discharge Instructions (Spanish) [facility] Consultation (Routine) - Pending Review Specialty Diagnoses / Procedures Referred By Roby shi Referred To Contact Breast Surgery / Breast Clinic / Breast Center Diagnoses Breast cancer screening, high risk patient Procedures CO OFFICE/OUTPATIENT [facility] MDM 60-74 MINUTES Michelet Calvert MD [address] [place] [address] [address] [place] [address] [facility] [address] [facility] [address] [place] [address] Referral ID Status Reason Start Date Expiration Date Visits Requested Visits Authorized [id number] Pending Review Specialty Services Required 05/16/2023 05/15/2024 1 1 [facility] for referral (narrative)* Consultation (Routine) - Pending Review Specialty Diagnoses / Procedures Referred By Contnadine t Referred To Contact General Surgery Diagnoses Screening for colon cancer Procedures CO OFFICE/OUTPATIENT [facility] MDM 60-74 MINUTES Wong Carpenter MD [address] [facility] [place] [address] Michelet Calvert MD [address] [place] [id number] Referral ID Status Reason Start Date Expiration Date Visits Requested Visits Authorized [id number] Pending Review Specialty Services Required 11/30/2022 11/30/2023 1 1 [facility] Summary Purpose Family History No Family History Records Found Relationship Condition Age at Onset Recorded Date/T mark mother Malignant neoplasm of cervix Unknown Not Specified Malignant neoplasm of breast Unknown Advance Directives No Advanced Directives Records Found Advance Directive Response Recorded Date/ Time Advance Directives No May 21 016 12:00pm Living Will No May 21, 2016 12:00pm Power of Convenience Store Clerk No May 21 16 12:00pm Latest Code Status on File Code Status Date Activated Date Inactivated Comments Full Code 05/16/2023 8:21 AM 05/16/2023 12:01 PM Latest Code Status on File Code Status Date Activated Date Inactivated Comments Full Code 05/16/2023 8:21 AM 05/16/2023 12:01 PM Date Activated Date Inactivated Comments 05/16/2023 8:21 AM 05/16/2023 12:01 PM Chief Complaint and Reason for Visit Chief Complaint 6 M FU SCREENING Reason for Visit Diabetes Obesity Additional Source Comments INFORMATION SOURCE (unrecogn ized section and content) DATE CREATED AUTHOR 04/08/2018 [facility] DATE CREATED AUTHOR AUTHOR'S ORGANIZ ATION 12/29/2024 [facility] DATE CREATED AUTHOR AUTHOR'S ORGANIZ ATION [facility]20[facility] Care Teams (unrecognized sec tion and content) Planner Scheduler Relationship Specialty Start Date End Date Wong Carpenter MD [address] [place] [id number] PCP - General 06/03/17 Planner Scheduler Relationship Specialty Start Date End Date Wong Carpenter MD [address] [place] [address] PCP - General 06/03/17 Team Status: Active Member Role Status Dates Dr. Oskar Newman MD Family Provider Active Dr. Wong Carpenter MD Primary Care Provider Active Team Status: Inactive Member Role Status Dates Dr. Wong Carpenter MD Primary Care Provider, Referri Provider Active DANIEL SoteloC Attending Provider Active Team Status: Inactive Member Role Status Dates Dr. Wong Carpenter MD Primary Care Pro vider, Attending Provider, Referring Provider Active Planner Scheduler Relationship Specialty Start Date End Date Wong Carpenter MD [address] [place] [address] PCP - General 06/03/17 Planner Scheduler Relationship Specialty Start Date End Date Wong Carpenter MD [address] [place] [address] PCP - General 06/03/17 Planner Scheduler Relationship Specialty Start Date [place] [address] PCP - General 06/03/17 Planner Scheduler Relationship Specialty Start Date [place] [address] PCP - General 06/03/17 Planner Scheduler Relationship Specialty Start Date End Date Wong Carpenter MD [address] [place] [address] [address] PCP - General 06/03/17 Planner Scheduler Relationship Specialty Start Date [place] [address] PCP - General 06/03/17 Planner Scheduler Relationship Specialty Start Date End Date Wong Carpenter MD [address] [facility] [place] [address] PCP - General 06/03/17 Planner Scheduler Relationship Specialty Start Date End Date Wong Carpenter MD 25 [facility] [place] [address] PCP - General 06/03/17 Planner Scheduler Relationship Specialty Start Date End Date Wong Carpenter MD 25 [facility] [place] [address] PCP - General 06/03/17 Planner Scheduler Relationship Specialty Start Date End Date Wong Carpenter MD [address] [facility] [place] [address] PCP - General 06/03/17 Planner Scheduler Relationship Specialty Start Date End Date Wong Carpenter MD [address] [facility] [place] [address] PCP - General 06/03/17 Planner Scheduler Relationship Specialty Start Date End Date Wong Carpenter MD 25 [facility] [place] [address] PCP - General 06/03/17 Planner Scheduler Relationship Specialty Start Date End Date Wong Carpenter MD [address] [facility] [place] [address] PCP - General 06/03/17 Planner Scheduler Relationship Specialty Start Date End Date Wong Carpenter MD [address] [facility] [place] [address] PCP - General 06/03/17 Planner Scheduler Relationship Specialty Start Date End Date Wong Carpenter MD [address] [facility] [place] [address] PCP - General 06/03/17 Reason for Visit (unrecogniz ed section and content) Reason Onset Date Comments Med Refill 04/04/2023 Reason Comments Med Refill Specialty Diagnoses / Procedures Referred By Contnadine t Referred To Contact Diagnoses Encounter for screening colonoscopy screening colonoscopy Procedures CO COLON CA SCRN NOT HI RSK IND Michelet Calvert MD [address] [place] [address], [place] [address] [place] [address] Referral ID Status Reason Start Date Expiration Date Visits Re quested Visits Authorized [id number] 12/14/2022 1 1 Reason Comments 6 Month Follow-up Medicine Check Diabetes Hyperlipidemia Hypothyroidism Health Maintenance Scheduled for DM eye exam with Dr. Amor Hep C/HIV screeningsDeclines MMR, Hep B, shingrix, or PCVOnly had 3 COVID vaccines, did not get the 4th Reason Comments Annual Exam Blood Work Health Maintenance Eye exam- not done p t will call to sched Dental exam- Dr Donald in [place] will send for record Flu vaccine- [id number] covid vaccine- not donePap- Dr Morales in [place] will send for record Reason Onset Date Comments Results 01/20/2024 Reason Comments Hypothyroidism Hyperlipidemia Diabetes Medication Check 6 month Health Maintenance Hep b vaccine- refus eShingles vaccine- refuseEye exam- not donePcv 20 vaccine- refusePap/shashank- pt will schedDental exam- [facility] in [facility] covid vaccines- not doneFlu vaccine- refuse Reason Comments Annual Exam Blood Work TSH, A1c, lipid, CMP , microalbumin Health Maintenance Flu vaccine-declines Shingrix-declinesPNA [id number] to take [place] [facility] [place]-would like referralDM eye exam-yes, Dr. Hartman in [place] Reason Comments Annual Exam Health Maintenance Hepatitis B Vaccines -declinedZoster Vaccines- declinedDiabetes: Retinopathy Screening-DUE been over a yearPneumococcal Vaccine-declinedCervical Cancer Screening-DUE w/ marcanthonyMammnick-sanam ordersDiabetes: Dental Exam-6 months ago Influenza [id number] Vaccine-declinedDepression Screening-NEEDS COMPLETEDDiabetes: Foot Exam-PENDED Goals (unrecognized section and content) Goals may be documented in a n alternate section Scheduled Active and Recently Administ ered Medications (unrecognized section and content) Medication Order 05/14/2023 05/15/2023 05/16/2023 sodium chloride 0.9% (NS) flush 10 mL 10 mL, IntraVENous, Every 12 hours scheduled (2 times per day), First dose on Anali 05/16/23 at 0900, Preprocedure 0900 (Canceled Entry - Provider: Automatic Discharge Provider - Comment: Automatically canceled at discontinue of medication order) PRN Medication Order 05/14/2023 05/15/2023 05/16/2023 sodium chloride 0.9 % infusion 5-250 mL/hr, IntraVENous, PRN, if patient receiving piggyback infusions and maintenance fluids are not ordered OR KVO fluids to protect IV site / prevent frequent line interruptions/ long duration, Starting on Anali 05/16/23 at 0821, Preprocedure, For piggyback infusion, administer at same rate as piggyback for a total of 25 mL. Enter 25 mL into dose field and piggyback rate into rate field of order. If piggyback is infusing at a rate less than 100 mL/hr, enter 25 mL into dose field and 100 mL/hr into rate field of order. For KVO fluids, enter rate of 20 mL/hr or less into rate field of order. [id number] (New Bag - Prov ider: Corazon Miller RN)[id number] (Continued by Anesthesia - Provider: ALTAGRACIA Roldan CRNA)0910 (New Bag - Provider: ALTAGRACIA Roldan CRNA) sodium chloride 0.9% (NS) flush 10 mL 10 mL, IntraVENous, PRN, line care, Starting on Anali 05/16/23 at 0821, Preprocedure, After every IV line use FOR RECORDS PERTAINING TO PATIENTS WHO ARE OR HAVE BEEN ENROLLED IN A CHEMICAL DEPENDENCY/SUBSTANCEABUSE PROGRAM, SOME INFORMATION MAY BE OMITTED. This clinical summary was aggregated from multiple sources. Caution should be exercised in using it in the provision of clinical care. This summary normalizes information from multiple sources, and as a consequence, information in this document may materially change the coding, format and clinical context of patient data. In addition, data may be omitted in some cases. CLINICAL DECISIONS SHOULD BE BASED ON THE PRIMARY CLINICAL RECORDS. [facility] [employer] [facility]. provides no warranty or guarantee of the accuracy or completeness of information in this document.
== END | disposition home or self-care (01) ==
LOC: OPBI 13:02
PROVIDERS: PCP Family Medicine; Referring Provider Registered Nurse; Visit Provider Registered Nurse
DX: Z12.31 Encounter for screening mammogram for malignant neoplasm of breast (principal)
CPT/HCPCS: 77063; 77067